=== PATIENT | female | born 1950 | race Caucasian/White ===

== ENCOUNTER 2020-03-27 16:08 | Outpatient (REF) | payer MEDICARE, SELFPAY ==
--- NOTE | 2020-03-27 16:13 | MM_ITS ---
EXAMINATION: MM SCREENING DIGITAL BREAST TOMOSYNTHESIS, BILATERAL CLINICAL INFORMATION: Screening. Asymptomatic. Prior history remote breast biopsies with benign pathology. The lifetime risk of breast cancer based on the Tyrer-Cuzick Model is 4%. COMPARISON: Mammography: 07/29/2018, 07/16/2017 TECHNIQUE: Digital breast tomosynthesis is performed in both the craniocaudal and mediolateral oblique views along with computer-aided detection (CAD). Synthesized 2D images are generated from the tomosynthesis. FINDINGS: There are scattered areas of fibroglandular density (ACR BI-RADS breast composition Category b). There is chronic bilateral nipple retraction and some minor scarring similar to prior studies. No interval architectural abnormality, mass, developing density. Again, there are regional calcifications predominantly central left breast without significant change. MM/MM tomosynthesis screening BI IMPRESSION: No significant changes from prior studies. ASSESSMENT: BI-RADS 2: Benign RECOMMENDATION: Routine annual mammography screening. This patient's information was entered into a reminder system with a target due date for their next mammogram.
== END 2020-03-27 16:09 | disposition home or self-care (01) ==
LOC: HO.MAMMO 16:08
PROVIDERS: PCP Family Medicine; Visit Provider Family Medicine
DX: Z12.31 Encounter for screening mammogram for malignant neoplasm of breast (principal)
CPT/HCPCS: 77063; 77067

== ENCOUNTER 2020-07-05 10:00 | Outpatient (REF) | payer MEDICARE, OTHER, SELFPAY | END 2020-07-05 10:01 | disposition home or self-care (01) | LOC: HO.LAB 10:00 | PROVIDERS: Visit Provider Internal Medicine | DX: Z20.822 Contact with and (suspected) exposure to COVID-19 (principal) | CPT/HCPCS: 36415; C9803; U0003; U0005 ==

== ENCOUNTER 2020-07-14 04:46 | Emergency (ER) | payer MEDICARE, OTHER, SELFPAY ==
[2020-07-14] VITALS (10 sets, daily range): BP systolic 109–162; BP diastolic 57–77; PULSE 76–116; RESP 14–18; TEMP 36.5–38.2; O2SAT 93–97; BMI 27.6
--- NOTE | ~2020-07-14 | CT_ITS ---
EXAMINATION: CT ABDOMEN AND PELVIS WITHOUT CONTRAST CLINICAL INFORMATION: Lower abdominal pain. COMPARISON: 09/23/2017. TECHNIQUE: Contiguous axial thin section helical images of the abdomen and pelvis were performed without oral or IV contrast. The data set was reformatted in the coronal and sagittal planes and reviewed on an independent workstation. DLP: 587 mGy-cm. FINDINGS: The visualized lung bases are clear. The visualized portions of the heart are unremarkable. There is a small hiatal hernia. The liver is of normal size and attenuation without focal lesions nor intrahepatic biliary ductal dilation. A normal gallbladder is identified. There is no wall thickening or discernible pericholecystic fluid. The spleen, pancreas, adrenal glands are unremarkable. Both kidneys are of normal size and attenuation. There is left grade 3 hydroureteronephrosis secondary to an obstructive 3 mm left UVJ calculus. Within the lower pole of the left kidney, there is a nonobstructive 6 mm calculus. There is left perinephric and periureteral stranding. There is no abdominal free fluid. There is neither mesenteric nor retroperitoneal lymphadenopathy. There is extensive sigmoid diverticulosis without evidence of diverticulitis; otherwise, unremarkable unopacified loops of small and large bowel are identified. There is no pelvic free fluid. The urinary bladder is unremarkable. There is neither pelvic nor inguinal lymphadenopathy. Bone windows: Neither sclerotic nor lytic bone lesions are identified. CT/CT abdomen pelvis wo con IMPRESSION: Left grade 3 hydroureteronephrosis secondary to an obstructive 3 mm left UVJ calculus. Extensive diverticulosis without evidence of diverticulitis. Automated exposure control (Care Dose) Adjustment of the mA and/or kv according to patient size (this includes techniques or standardized protocols for targeted exams where dose is matched to indication / reason for exam; i.e. extremities or head).
--- NOTE | ~2020-07-14 | FL_ITS ---
EXAMINATION: XR FLUOROSCOPY WITH IMAGES CLINICAL INFORMATION: Left ureteral stone COMPARISON: CT abdomen and pelvis from earlier in the same day TECHNIQUE: Fluoroscopy performed by Johnathan Webber. Fluoroscopy time: 14 seconds DAP: 3.63 mGy Images: 3 FINDINGS: 3 spot fluoroscopic images demonstrate opacification of the left ureter and placement of a double-J ureteral stent. FL/FL guidance in OR IMPRESSION: Fluoroscopy was utilized in the OR during left ureteral stent placement. Please refer to operative report for full procedure details.
--- NOTE | 2020-07-14 05:30 | ED_ITS ---
HPI - Abdominal Pain General Chief Complaint: Extremity Injury, Lower Stated Complaint: L HIP/FLANK PAIN Time Seen by Provider: 07/14/20 05:02 Source: patient Mode of arrival: EMS Limitations: no limitations History of Present Illness HPI narrative: Patient history of kidney stone and diverticulitis woke up at 03:00 with left lower quadrant pain with diaphoresis , patient had yesterday left flank pain which has improved also patient uses strong odor in the urine when she urinated no hematuria no nausea no vomiting no diarrhea no fever no chills no abdominal distension no hernia MD elicited complaint: abdominal pain and flank pain Pertinent past history: diverticulitis and kidney stones Related Data Allergies Allergy/AdvReac Type Severity Reaction Status Date / Time abacavir Allergy Unknown Verified 04/30/19 00:00 dicloxacillin [Dicloxacillin] Allergy Unknown UNKNOWN Unverified 12/30/19 14:54 Sulfa (Sulfonamide Allergy Unknown RASH Unverified 12/30/19 14:54 Antibiotics) Review of Systems Review of Systems Constitutional : No Weight loss, No Fever, No Chills ENT/Mouth : No sore throat, No Rhinorrhea Eyes: No Eye Pain, No Swelling Cardiovascular : No Chest Pain, no palpitations Respiratory : No Cough, No Sputum, no shortness of breath Gastrointestinal : no Nausea, No Vomiting, No Diarrhea, ++ abdominal Pain, no black stools Genitourinary : No Dysuria, No Urinary Frequency Musculoskeletal : No joint pain, No Myalgias, No Joint Swelling Skin : No Skin Lesions, No rash Neuro : No Weakness, No Numbness, No Dizziness, No Headache Psych : No Anxiety/Panic, No Depression Heme/Lymph: No Bruising, No Lymphadenopathy Endocrine : No Polyuria, No Polydipsia All other systems reviewed and are negative Physical Exam Vital Signs: Vital Signs: Last Vital Signs Temp 97.7 F 07/14/20 05:00 Pulse 76 07/14/20 05:00 Resp 18 07/14/20 05:00 BP 158/63 H 07/14/20 05:00 Pulse Ox 97 07/14/20 05:00 Body Mass Index 27.6 Appearance: Alert. Oriented X3. No acute distress. Eyes: Pupils equal, round and reactive to light. ENT: Pharynx normal. Neck: Normal inspection. Neck supple. CVS: Normal heart rate and rhythm. Pulses normal. Respiratory: No respiratory distress. Breath sounds normal. Abdomen: Soft dip tenderness left lower quadrant with guarding no rebound tenderness Bowel sounds are present, no mass palpable, mild left CVA tenderness Skin: Skin warm and dry. Normal skin color. Normal skin turgor. Extremities: No lower extremity edema. Neuro: Oriented X 3. No motor deficit. No sensory deficit. MDM - Abdominal Pain MDM Narrative Medical decision making narrative: Patient with left flank left abdominal pain secondary to 3 mm L UVJ junction stone with grade 3 hydro ureteral nephrosis. Will give IV fluids pain medication Flomax and Decadron. Case discussed Dr. Caraballo urologist will see the patient in ED, in case pain continues patient signed out to Dr. Linton pending UA and disposition Differential Diagnosis Differential diagnosis: Likely calculus of kidney, diverticulitis, ovarian cyst and renal colic Medical Records Attestation: I reviewed the patient's medical records. Lab Data Attestation: I reviewed the patient's lab results. Result diagrams: 07/14/20 06:04 07/14/20 06:04 Labs: Lab Results 07/14/20 07/14/20 Range/Units 06:04 06:04 WBC 11.7 H (4.8-10.8) X10*3/uL RBC 4.85 (4.20-5.50) X10*6/uL Hgb 14.8 (12.0-16.0) g/dl Hct 43.5 (37-47) % MCV 89.7 (80-98) fL MCH 30.5 (27.0-33.0) pg MCHC 34.0 (31.0-35.0) g/dl RDW 11.9 (11.0-16.0) % Plt Count 222 (160-400) X10*3/uL MPV 10.1 (9.4-12.3) fL Immature Gran % (Auto) 0.3 (0.0-0.4) % Neut % (Auto) 82.7 H (45-73) % Lymph % (Auto) 12.7 L (20-40) % [place] % (Auto) 3.3 (2-11) % Eos % (Auto) 0.6 (0-4) % Baso % (Auto) 0.4 (0-2) % Lymph # (Auto) 1.5 (1.2-4.9) X10*3/uL [place] # (Auto) 0.4 (0.1-1.2) X10*3/uL Eos # (Auto) 0.1 (0.0-0.4) X10*3/uL Baso # (Auto) 0.1 (0.0-0.2) X10*3/uL Abs Immat Gran (auto) 0.04 H (0.00-0.03) X10*3/uL Absolute Neuts (auto) 9.7 H (2.0-8.3) X10*3/uL Absolute Nucleated RBC 0.000 (0.0-0.012) X10*3/uL Nucleated RBC % (auto) 0.0 (0.0-0.2) /100WBC Carbon Dioxide 26 (22-29) mmol/L BUN 24 H (9-16) mg/dL Creatinine 1.13 (0.5-1.4) mg/dL Estim Creat Clear Calc 43.7 Estimated GFR 48 Random Glucose 158 H (60-115) mg/dL Calcium 9.1 (8.4-10.2) mg/dL Total Bilirubin 0.3 (0.0-1.0) mg/dL Direct Bilirubin 0.2 (0.0-0.5) mg/dL AST 24 (5-31) U/L ALT 31 (0-31) U/L Alkaline Phosphatase 77 (39-117) U/L Total Protein 7.0 (6.5-8.0) g/dL Albumin 4.2 (3.5-5.0) g/dL Lipase 19 (8-78) U/L Imaging Data CT scan - abdomen: Attestation: I personally reviewed and interpreted this imaging study as follows: Radiologist's impression: Ordering Physician: David Bauer MD Date of Service: 07/14/20 Procedure(s): CT abdomen pelvis [facility] Accession Number(s): [id number] cc: David Bauer MD~ EXAMINATION: CT ABDOMEN AND PELVIS WITHOUT CONTRAST CLINICAL INFORMATION: Lower abdominal pain. COMPARISON: 09/23/2017. TECHNIQUE: Contiguous axial thin section helical images of the abdomen and pelvis were performed without oral or IV contrast. The data set was reformatted in the coronal and sagittal planes and reviewed on an independent workstation. DLP: 587 mGy-cm. FINDINGS: The visualized lung bases are clear. The visualized portions of the heart are unremarkable. There is a small hiatal hernia. The liver is of normal size and attenuation without focal lesions nor intrahepatic biliary ductal dilation. A normal gallbladder is identified. There is no wall thickening or discernible pericholecystic fluid. The spleen, pancreas, adrenal glands are unremarkable. Both kidneys are of normal size and attenuation. There is left grade 3 hydroureteronephrosis secondary to an obstructive 3 mm left UVJ calculus. Within the lower pole of the left kidney, there is a nonobstructive 6 mm calculus. There is left perinephric and periureteral stranding. There is no abdominal free fluid. There is neither mesenteric nor retroperitoneal lymphadenopathy. There is extensive sigmoid diverticulosis without evidence of diverticulitis; otherwise, unremarkable unopacified loops of small and large bowel are identified. There is no pelvic free fluid. The urinary bladder is unremarkable. There is neither pelvic nor inguinal lymphadenopathy. Bone windows: Neither sclerotic nor lytic bone lesions are identified. CT/CT abdomen pelvis wo con IMPRESSION: Left grade 3 hydroureteronephrosis secondary to an obstructive 3 mm left UVJ calculus. Extensive diverticulosis without evidence of diverticulitis. Automated exposure control (Care Dose) Adjustment of the mA and/or kv according to patient size (this includes techniques or standardized protocols for targeted exams where dose is matched to indication / reason for exam; i.e. extremities or head). Dictated By:HENRY ROONEY MDSigned By:<Electronically signed by HENRY ROONEY MD in OV> Discharge Plan Discharge Clinical Impression: Kidney stone on left side PMFSH Past Medical History Medical History Diverticulitis Kidney stone Social History Social History Advance Directives: No Advance Directives Information Provided: No
[2020-07-14] MEDS: ondansetron HCL 4 MG/2 ML VIAL IVPUSH (06:09)
[2020-07-14] MEDS: 0.9 % Sodium Chloride 1,000 ML 999 ML IVCONT ×2 (06:09→08:01)
[2020-07-14] MEDS: Morphine Sulfate 4 MG/ML CARTRIDGE IVPUSH (06:10)
[2020-07-14 06:11] LABS: MANUAL DIFF FLAG NO
[2020-07-14 06:17] LABS: Basophils Absolute Auto 0.1 X10*3/uL (0.0-0.2); Basophils Percent Auto 0.4 % (0-2); Eosinophils Absolute Auto 0.1 X10*3/uL (0.0-0.4); Eosinophils Percent Auto 0.6 % (0-4); Hematocrit 43.5 % (37-47); Hemoglobin 14.8 g/dl (12.0-16.0); Imm Gran Abs Auto 0.04 X10*3/uL (0.00-0.03); Imm Gran Pct Auto 0.3 % (0.0-0.4); Lymphocytes Absolute Auto 1.5 X10*3/uL (1.2-4.9); Lymphocytes Percent Auto 12.7 % (20-40); Mean Corpuscular Hemoglobin 30.5 pg (27.0-33.0); Mean Corpuscular Volume 89.7 fL (80-98); Mean Platelet Volume 10.1 fL (9.4-12.3); Monocytes Absolute Auto 0.4 X10*3/uL (0.1-1.2); Monocytes Percent Auto 3.3 % (2-11); Neutrophils Absolute Auto 9.7 X10*3/uL (2.0-8.3); Neutrophils Percent Auto 82.7 % (45-73); Platelet Count 222 X10*3/uL (160-400); Red Blood Count 4.85 X10*6/uL (4.20-5.50); Red Cell Distribution Width 11.9 % (11.0-16.0); White Blood Count 11.7 X10*3/uL (4.8-10.8)
[2020-07-14 06:47] LABS: Alanine Aminotransferase 31 U/L (0-31); Albumin Level 4.2 g/dL (3.5-5.0); Alkaline Phosphatase 77 U/L (39-117); Aspartate Amino Transferase 24 U/L (5-31); Bilirubin Direct 0.2 mg/dL (0.0-0.5); Bilirubin Total 0.3 mg/dL (0.0-1.0); Blood Urea Nitrogen 24 mg/dL (9-16); Calcium 9.1 mg/dL (8.4-10.2); Carbon Dioxide 26 mmol/L (22-29); Creatinine Clr Calc Pharmacy 43.7; Estimated Glomerular Filt Rate 48; Glucose Random 158 mg/dL (60-115); Lipase 19 U/L (8-78)
[2020-07-14] MEDS: Ketorolac Tromethamine 30 MG/ML VIAL IVPUSH (06:59)
[2020-07-14 07:01] LABS: Anion Gap 13 (12-20); Chloride 105 mmol/L (96-108); Potassium 4.3 mmol/L (3.3-5.1); Sodium 140 mmol/L (135-145)
[2020-07-14] MEDS: Tamsulosin HCL 0.4 MG CAPSULE PO (07:03)
--- NOTE | 2020-07-14 10:13 | PC.NURSE ---
ATTEMPTED TO GET THE PT UP TO THE BATHROOM BUT PT STATES SHE CAN'T GET UP DUE TO THE PAIN, PAIN STILL AT 5/10. PT PUT ON THE BED RODRIGUEZ BY CONNIE CASTELLON AND PT ONLY VOIDED A DROP OF URINE,
[2020-07-14 12:12] LABS: Appearance Urine CLOUDY; Color Urine YELLOW; Glucose Urine UA NEG (NEG); Leukocyte Esterase Urine 3+ (NEG); Nitrite Urine NEG (NEG); UACC Culture Trigger YES; Urine Blood 3+ (NEG); Urine Ketones NEG (NEG); Urine Protein NEG (NEG-TRACE)
[2020-07-14 12:25] LABS: Bacteria Urine 1+ /LPF; Oval Fat Bodies Urine NOTED; Squamous Epithelial Cell Urine TRACE /LPF
--- NOTE | 2020-07-14 13:02 | P.HPGS_ITS ---
History of Present Illness History of Present Illness Date of Service: 07/14/20 Chief complaint: L HIP/FLANK PAIN Narrative: Lidia Mcdonald is a 70 year old female Known stone former Presents to emergency room with left-sided flank pain Imaging with distal left stone x2 and hydroureteronephrosis grade 3 Discussed with patient Pain started on Friday last week and has been building Offered intervention with ureteroscopy laser lithotripsy and stent placement She would like to proceed Review of Systems Constitutional: Constitutional: Denies chills and Denies fever(s) Cardiovascular: Cardiovascular: Reports no additional cardiovascular complaints and Denies syncope Respiratory: Respiratory: Denies cough Gastrointestinal: Gastrointestinal: Denies abdominal pain and Denies heartburn Genitourinary: Genitourinary: Reports as per HPI and Denies change in libido Neurologic: Denies syncope Psychiatric: Psychiatric: Denies change in libido Endocrine: Endocrine: Denies change in libido [facility] Past Medical History Medical History Diverticulitis Kidney stone Social History Social History Advance Directives: No Advance Directives Information Provided: No Meds Allergies Allergy/AdvReac Type Severity Reaction Status Date / Time abacavir Allergy Unknown Verified 04/30/19 00:00 dicloxacillin [Dicloxacillin] Allergy Unknown UNKNOWN Unverified 12/30/19 14:54 Sulfa (Sulfonamide Allergy Unknown RASH Unverified 12/30/19 14:54 Antibiotics) Active Medications: Current Medications Generic Name Dose Route Start Last Admin Trade Name Freq PRN Reason Stop Dose Admin Sodium Chloride 3 ml 07/14/20 16:00 0.9 % Sodium Chloride Flush 3 Ml Syringe IVFLUSH QSHIFT USHA Physical Exam Vital Signs: Vital Signs: Last Vital Signs Temp 97.7 F 07/14/20 05:00 Pulse 106 H 07/14/20 10:33 Resp 18 07/14/20 10:33 BP 155/69 H 07/14/20 10:33 Pulse Ox 94 07/14/20 10:33 Body Mass Index 27.6 Const: General: cooperative, healthy appearing, comfortable and no acute distress Nutritional Appearance: average body habitus Orientation/consciousness: patient oriented x3 HENMT: Face and sinus: Yes normal facial exam Mouth: moist mucous membranes Eyes: General: appearance normal, both eyes and all related structures Neck: Neck: Yes normal visual inspection, Yes full ROM and Yes trachea midline Chest: Chest palpation & inspection: normal inspection of the chest Resp: Effort & Inspection: normal respiratory effort, able to speak in complete sentences and no respiratory distress Cardio: Rate: regular rate GI: Inspection: Yes normal to inspection : General: Yes CVA tenderness (Left side) Back/Spine/Pelvis: Back: CVA tenderness (Left side) Cervical Spine: normal cervical lordosis Thoracic/Lumbar Spine: thoracic and lumbar spine normal to inspection Skin: General skin exam: no rashes or lesions noted Hair: normal Neuro: General: patient oriented x3, gait normal, tone normal and moves all extremities Extrem: General: Yes normal to inspection and Yes capillary refill normal Results Results Labs: Short CBC 07/14/20 Range/Units 06:04 WBC 11.7 H (4.8-10.8) X10*3/uL Hgb 14.8 (12.0-16.0) g/dl Hct 43.5 (37-47) % Plt Count 222 (160-400) X10*3/uL BMP 07/14/20 06:04 Sodium 140 Potassium 4.3 Chloride 105 Carbon Dioxide 26 BUN 24 H Creatinine 1.13 Calcium 9.1 Liver Function 07/14/20 Range/Units 06:04 Total Bilirubin 0.3 (0.0-1.0) mg/dL Direct Bilirubin 0.2 (0.0-0.5) mg/dL AST 24 (5-31) U/L ALT 31 (0-31) U/L Alkaline Phosphatase 77 (39-117) U/L Albumin 4.2 (3.5-5.0) g/dL Urine 07/14/20 Range/Units 11:56 Urine Color YELLOW Urine Appearance CLOUDY Urine pH 6.0 (5.0-8.0) Ur Specific [place] 1.020 (1.005-1.025) Urine Protein NEG (NEG-TRACE) MG/DL Urine Glucose (UA) NEG (NEG) MG/DL Both kidneys are of normal size and attenuation. There is left grade 3 hydroureteronephrosis secondary to an obstructive 3 mm left UVJ calculus. Within the lower pole of the left kidney, there is a nonobstructive 6 mm calculus. There is left perinephric and periureteral stranding. Assessment and Plan (1) Kidney stone on left side: Status: Acute Ureteroscopy We discussed the nature of the decision and reasonable alternatives for performing the above surgery. Interventions include chemical dissolution, ESWL, ureteroscopy with laser lithotripsy and stent placement, PCNL. Options such as medical therapy were discussed. The relative uncertainties and benefits related to each alternate procedure were adequately discussed. General surgical risks including, but not limited to, pain, bleeding, infection, myocardial infarction, pulmonary embolus, deep vein thrombosis and cerebrovascular accident which may result in further hospitalization were discussed. Full disclosure of the procedure as well as all major risks, benefits and compli cations were discussed including but not limited to damage to the urethra, bladder and kidney infection, damage to the ureter, stent migration or malposition, scarring to the renal pelvis, remnant stone fragments, subsequent stone passage with need for secondary procedures. The overall secondary procedure rate is approximately 10-15%. The success rate of the procedure was discussed. Success of the procedure in the short-term does not necessarily guarantee that long-term success will be maintained. Suitable follow up will need to be maintained. The patient showed understanding of discussion and wishes to proceed with - cystoscopy, retrograde, ureteroscopy, possible lithotripsy/stone basketing and stent on the left side
--- NOTE | 2020-07-14 13:27 | PC.NURSE ---
Pharmacy called for med rec
--- NOTE | 2020-07-14 17:04 | PM.OP ---
Brief Operative Note Date of Service: 07/14/20 Pre-op diagnosis: left distal ureteric stone Post-op diagnosis: same Procedure: cysto, retrograde, ureteroscopy, stone basketing, stent placement Implants: 6x22 cm Double - J Surgeon: Johnathan Caraballo MD Anesthesia: GLMA Estimated blood loss (mL): 0 Pathology: other Condition: stable Disposition: same day
--- NOTE | 2020-07-14 17:05 | P.OP_ITS ---
Operative Note Operative Note Date of Service: 07/14/20 Narrative: PreOperative Diagnosis: Distal left ureteric stone with hydronephrosis Post Operative Diagnosis: Distal left ureteric stone with hydronephrosis Procedure: - cystoscopy, retrograde - dilatation of ureteric orifice under fluoroscopy - ureteroscopy, stone basketing - stent placement Surgeon: Dr Johnathan Caraballo Anesthesia: General Indications for procedure: 7-year-old female. Distal left ureteric stone with hydronephrosis. Unable to pass in prior 72 hours. Recommendation for ureteroscopy made. Admitted through emergency room. Procedure: After informed consent was verified patient was brought to the operating placed in supine position. Anesthesia was administered per protocol. Patient was placed in modified dorsal lithotomy position and prepped and draped in a sterile fashion. Safety pause time-out and side of surgery confirmed. Antibiotics confirmed. Twenty-two Cymraes cystoscope inserted per urethra. Bladder empty. One stone seen at opening of ureteric orifice. This was knocked free and removed. Retrograde examination performed. Second stone seen within the distal portion of the ureter. Hydronephrosis seen. Sensor guidewire placed without difficulty. Rigid ureteral scope placed and alongside wire. Stone was encountered. Using a Zero tip basket this was encircled and removed. No other evidence of other stones. Six Cymraes by 22 cm stent placed up to the renal pelvis with good coil seen in the renal pelvis and in the bladder. Bladder was emptied. She tolerated procedure well was extubated in the operating room transferred in stable condition to the recovery area. Pathology: Stone Drains: 6 Cymraes by 22 cm double-J stent
[2020-07-14] MEDS: Phenazopyridine HCL 100 MG TABLET PO (17:18)
[2020-07-23 13:12] LABS: Stone Source LT URETER
== END 2020-07-14 15:27 | disposition admitted as inpatient to this hospital (09) ==
LOC: HO.ED 07:28 → HO.EDOVER 14:03
PROVIDERS: Internal Medicine; Urology; Emergency Provider Emergency Medicine
PROC: (CPT 52352; principal; 2020-07-14 16:00)
DX: N20.1 Calculus of ureter (principal); Z87.442 Personal history of urinary calculi; I10 Essential (primary) hypertension; Z79.899 Other long term (current) drug therapy
CPT/HCPCS: 52352; 52332; 36415; 52344; 74176; 80048; 80076; 81001; 81003; 82365; 83690; 85025; 87086; 96361; 96365; 96375; 96376; 99285; C2617; J0131; J1100; J1885; J2250; J2270; J2405; J3010; Q9967

== ENCOUNTER → 2020-07-26 12:49 | Outpatient (BNVA) | payer MEDICARE, OTHER, SELFPAY | PROVIDERS: Visit Provider Urology | DX: N20.0 Calculus of kidney (principal) | CPT/HCPCS: 52310; 81002; 99212 ==

== ENCOUNTER 2020-10-26 12:55 | Outpatient (REF) | payer MEDICARE, OTHER, SELFPAY ==
--- NOTE | ~2020-10-26 | US_ITS ---
EXAMINATION: US RETROPERITONEAL LIMITED (RENAL ONLY) CLINICAL INFORMATION: Calculus of kidney. COMPARISON: CT abdomen and pelvis without contrast dated 07/14/2020. Renals only ultrasounds dated 04/28/2019 and 04/16/2018. TECHNIQUE: Real-time imaging of the kidneys. FINDINGS: RIGHT KIDNEY: 10.1 x 3.9 x 4.3 cm (SAG x AP x TRV). The kidney is normal in size, contour, and echogenicity. Right renal cortical thinning. No renal calculi. Simple upper pole cyst measuring 0.5 cm. Findings are not clinically significant and no follow-up imaging for the cyst is recommended. Small right extrarenal pelvis. No significant hydronephrosis. LEFT KIDNEY: 10.9 x 5.1 x 5.4 cm (SAG x AP x TRV). The kidney is normal in size, contour, and echogenicity. Left renal cortical thinning. No renal calculi. Septated midpole cyst measuring 1.6 cm, unchanged. Mild left-sided hydronephrosis, similar when compared to the recent CT. US/US renal BI IMPRESSION: 1. Mild left-sided hydronephrosis, similar when compared to the CT dated 07/14/2020. 2. Bilateral renal cortical thinning is redemonstrated.
== END 2020-10-26 12:56 | disposition home or self-care (01) ==
LOC: HO.US 12:55
PROVIDERS: PCP Family Medicine; Visit Provider Urology
DX: N20.0 Calculus of kidney (principal)
CPT/HCPCS: 76775

== ENCOUNTER → 2020-11-23 10:41 | Outpatient (BNVA) | payer MEDICARE, OTHER, SELFPAY | PROVIDERS: Visit Provider Urology | DX: N20.0 Calculus of kidney (principal) | CPT/HCPCS: 99212 ==

== ENCOUNTER 2021-01-01 14:30 | Outpatient (REF) | payer MEDICARE, OTHER, SELFPAY ==
[2021-01-01 15:08] LABS: Appearance Urine CLEAR; Color Urine STRAW; Glucose Urine UA NEG (NEG); Leukocyte Esterase Urine 3+ (NEG); Nitrite Urine NEG (NEG); Specific Gravity - Urine <= 1.005 (1.005-1.025); Urine Blood 2+ (NEG); Urine Ketones NEG (NEG); Urine Protein NEG (NEG-TRACE)
[2021-01-01 15:22] LABS: Bacteria Urine TRACE /LPF; Squamous Epithelial Cell Urine 1+ /LPF
== END 2021-01-01 14:31 | disposition home or self-care (01) ==
LOC: HO.LAB 14:30
PROVIDERS: PCP Family Medicine; Visit Provider Urology
DX: N20.0 Calculus of kidney (principal)
CPT/HCPCS: 81001; 87086

== ENCOUNTER 2021-01-08 12:20 | Emergency (ER) | payer MEDICARE, OTHER, SELFPAY ==
--- NOTE | ~2021-01-08 | XR_ITS ---
EXAMINATION: XR CHEST CLINICAL INFORMATION: Chest pain. COMPARISON: None TECHNIQUE: Frontal view of the chest was obtained. FINDINGS: No significant abnormality is noted involving the heart, lungs, mediastinum, bony thorax or soft tissues. XR/XR chest 1V IMPRESSION: Unremarkable chest exam.
--- NOTE | 2021-01-08 13:09 | ECG_ITS ---
Test Reason : CP Blood Pressure : / mmHG Vent. Rate : 082 BPM Atrial Rate : 082 BPM P-R Int : 158 ms QRS Dur : 080 ms QT Int : 382 ms P-R-T Axes : 048 -15 020 degrees QTc Int : 446 ms Normal sinus rhythm Possible Left atrial enlargement Left ventricular hypertrophy Abnormal ECG When compared with ECG of 28-JUN-2011 04:40, No significant change was found Referred By: Generic ED Physician Electronically Signed By:DEANNA GAMINO
[2021-01-08 13:21] VITALS: BP 146/76; PULSE 88; RESP 17; TEMP 36.4; O2SAT 95; BMI 27.3
--- NOTE | 2021-01-08 13:30 | ED.CHESTPAIN ---
HPI - Chest Pain General Chief Complaint: Chest Pain Stated Complaint: chest pain Time Seen by Provider: 01/08/21 13:30 Source: patient Mode of arrival: ambulatory Limitations: no limitations History of Present Illness MD complaint: chest pain Onset (ago): hour(s) (noon today) Prior episodes: No Onset: during exertion (started after she walked up the stairs with laundry - brought basket up started folding and and noted chest tightness x 30 minutes) Pain location: substernal Pain radiation: none Severity: mild Quality: tightness Relieving factors: nothing Exacerbating factors: nothing Context: other (has urology procedure scheduled today at 4pm) Treatment prior to arrival: none Related Data Home Medications Medication Instructions Recorded Confirmed amlodipine 10 mg tablet 1 tab PO DAILY 07/14/20 07/14/20 calcium carbonate 600 mg (1,500 1 tab PO DAILY 07/14/20 07/14/20 mg)-vitamin D3 200 unit tablet clobetasol 0.05 % topical ointment 1 appl TOPICAL BID PRN 07/14/20 07/14/20 clotrimazole-betamethasone 1 1 appl TOPICAL BID 07/14/20 07/14/20 %-0.05 % topical cream fluticasone propionate 50 1 spray INTRANASAL BID PRN 07/14/20 07/14/20 mcg/actuation nasal spray,suspension lorazepam 0.5 mg tablet 1 tab PO DAILY 07/14/20 07/14/20 losartan 50 mg tablet 1 tab PO DAILY 07/14/20 07/14/20 metoprolol succinate 50 mg 75 mg PO DAILY 07/14/20 07/14/20 tablet,extended release 24 hr xjkrunhxvxpa-jymikopg-garzzk tablet 1 tab PO DAILY 07/14/20 07/14/20 nortriptyline 25 mg capsule 1 cap PO BEDTIME 07/14/20 07/14/20 omega 5-pop-bfn-fish oil 1,000 mg 1 cap PO DAILY 07/14/20 07/14/20 (120 mg-180 mg) capsule (Fish Oil) omeprazole 20 mg capsule,delayed 1 cap PO DAILY@0630 07/14/20 07/14/20 release simvastatin 20 mg tablet 1 tab PO BEDTIME 07/14/20 07/14/20 Previous Rx's Medication Instructions Recorded phenazopyridine 100 mg tablet 100 mg PO TID PRN 4 Days #12 tab 07/14/20 (Pyridium) tamsulosin 0.4 mg capsule 0.4 mg PO BEDTIME #14 cap 07/14/20 tramadol 50 mg tablet 50 mg PO Q6H PRN #14 tab 07/14/20 azithromycin 250 mg tablet See Rx Instructions PO .COMPLEX #6 11/06/20 tab prednisone 20 mg tablet 20 mg PO DAILY 5 Days #5 tab 01/03/21 tamsulosin 0.4 mg capsule 0.4 mg PO DAILY 14 Days #14 cap 01/03/21 Allergies Allergy/AdvReac Type Severity Reaction Status Date / Time abacavir Allergy Unknown Unknown Verified 11/23/20 11:15 dicloxacillin [Dicloxacillin] Allergy Unknown UNKNOWN Verified 11/23/20 11:15 Sulfa (Sulfonamide Allergy Unknown RASH Verified 11/23/20 11:15 Antibiotics) Review of Systems Review of Systems: Constitutional : No Weight loss, No Fever, No Chills ENT/Mouth : No sore throat, No Rhinorrhea Eyes: No Eye Pain, No Swelling Cardiovascular : pos Chest Pain, no SOB, no Dyspnea on Exertion, No Orthopnea, No Edema, No Palpitations Respiratory : No Cough, No Sputum Gastrointestinal : no Nausea, No Vomiting, No Diarrhea, No abdominal Pain, No Hematochezia, No Melena Genitourinary : No Dysuria, No Urinary Frequency Musculoskeletal : No joint pain, No Myalgias, No Joint Swelling Skin : No Skin Lesions, No rash Neuro : No Weakness, No Numbness, No Dizziness, No Headache Psych : No Anxiety/Panic, No Depression Heme/Lymph: No Bruising, No Lymphadenopathy Endocrine : No Polyuria, No Polydipsia All other systems reviewed and are negative [facility] Past Medical History Attestation statement: The following information was validated with the patient. Medical History Diverticulitis GI bleed High cholesterol HTN (hypertension) Kidney stone Surgical History Hx of appendectomy Hx of colectomy Social History Social History (Updated 01/08/21 @ 13:30 by Skyla Montoya DO) Patient Tobacco Use Status: Never used Tobacco Use of substances other than those prescribed or required for medical reasons: No Advance Directives: No Advance Directives Information Provided: No Physical Exam Vital Signs: Vital Signs: Last Vital Signs Temp 97.5 F 01/08/21 13:21 Pulse 80 01/08/21 15:48 Resp 20 01/08/21 15:48 BP 146/79 H 01/08/21 13:37 Pulse Ox 98 01/08/21 15:48 Body Mass Index 27.3 Appearance: Alert. Oriented X3. No acute distress. Eyes: Pupils equal, round and reactive to light. ENT: Pharynx normal. Neck: Normal inspection. Neck supple. CVS: Normal heart rate and rhythm. Pulses normal. Respiratory: No respiratory distress. Breath sounds normal. Abdomen: Soft and nontender. Skin: Skin warm and dry. Normal skin color. Normal skin turgor. Extremities: No lower extremity edema. No calf ttp Neuro: Oriented X 3. No motor deficit. No sensory deficit. Course Course Course Narrative: anesthesia reports her case was canceled, two negative troponins, atypical chest pain stable for DC MDM - Chest Pain MDM Narrative Medical decision making narrative: 70 yo female with hx of HTN, ureteral stones, no prior cardiac issues comes in with resolved chest tightness. Episode started after going up the stairs but she had no associated symptoms, she does this same activity almost daily without any noted increased pain, dyspnea, fatigue or other anginal type symptoms. She is having surgery today for her kidney stones. No hypoxia/tachycardic/signs of DVT/pleuritic in nature to suggest PE. Will obtain labs, troponin x 2, CXR, COVID swab - seems unusual for ACS given the fact she has no symptoms and has not noted a change recently doing the same activities daily Lab Data Result diagrams: 01/08/21 14:08 01/08/21 14:08 Labs: Lab Results 01/08/21 01/08/21 01/08/21 Range/Units 13:59 14:08 14:08 WBC 9.2 (4.8-10.8) X10*3/uL RBC 5.20 (4.20-5.50) X10*6/uL Hgb 15.9 (12.0-16.0) g/dl Hct 46.5 (37-47) % MCV 89.4 (80-98) fL MCH 30.6 (27.0-33.0) pg MCHC 34.2 (31.0-35.0) g/dl RDW 12.9 (11.0-16.0) % Plt Count 208 (160-400) X10*3/uL MPV 9.7 (9.4-12.3) fL Immature Gran % (Auto) 0.5 H (0.0-0.4) % Neut % (Auto) 58.5 (45-73) % Lymph % (Auto) 33.7 (20-40) % [place] % (Auto) 6.0 (2-11) % Eos % (Auto) 1.0 (0-4) % Baso % (Auto) 0.3 (0-2) % Lymph # (Auto) 3.1 (1.2-4.9) X10*3/uL [place] # (Auto) 0.6 (0.1-1.2) X10*3/uL Eos # (Auto) 0.1 (0.0-0.4) X10*3/uL Baso # (Auto) 0.0 (0.0-0.2) X10*3/uL Abs Immat Gran (auto) 0.05 H (0.00-0.03) X10*3/uL Absolute Neuts (auto) 5.4 (2.0-8.3) X10*3/uL Absolute Nucleated RBC 0.000 (0.0-0.012) X10*3/uL Nucleated RBC % (auto) 0.0 (0.0-0.2) /100WBC Sodium 141 (135-145) mmol/L Potassium 4.1 (3.3-5.1) mmol/L Chloride 105 (96-108) mmol/L Carbon Dioxide 24 (22-29) mmol/L Anion Gap 16 (12-20) BUN 21 H (9-16) mg/dL Creatinine 0.99 (0.5-1.4) mg/dL Estim Creat Clear Calc 51.4 Estimated GFR 55 Random Glucose 103 (60-115) mg/dL Calcium 9.9 D (8.4-10.2) mg/dL Troponin I High Sens (<3.5-17.0) ng/L COVID-19 ([facility]) Negative (Negative) COVID-19 Clin Com See Note 01/08/21 01/08/21 Range/Units 14:08 15:47 WBC (4.8-10.8) X10*3/uL RBC (4.20-5.50) X10*6/uL Hgb (12.0-16.0) g/dl Hct (37-47) % MCV (80-98) fL MCH (27.0-33.0) pg MCHC (31.0-35.0) g/dl RDW (11.0-16.0) % Plt Count (160-400) X10*3/uL MPV (9.4-12.3) fL Immature Gran % (Auto) (0.0-0.4) % Neut % (Auto) (45-73) % Lymph % (Auto) (20-40) % [place] % (Auto) (2-11) % Eos % (Auto) (0-4) % Baso % (Auto) (0-2) % Lymph # (Auto) (1.2-4.9) X10*3/uL [place] # (Auto) (0.1-1.2) X10*3/uL Eos # (Auto) (0.0-0.4) X10*3/uL Baso # (Auto) (0.0-0.2) X10*3/uL Abs Immat Gran (auto) (0.00-0.03) X10*3/uL Absolute Neuts (auto) (2.0-8.3) X10*3/uL Absolute Nucleated RBC (0.0-0.012) X10*3/uL Nucleated RBC % (auto) (0.0-0.2) /100WBC Sodium (135-145) mmol/L Potassium (3.3-5.1) mmol/L Chloride (96-108) mmol/L Carbon Dioxide (22-29) mmol/L Anion Gap (12-20) BUN (9-16) mg/dL Creatinine (0.5-1.4) mg/dL Estim Creat Clear Calc Estimated GFR Random Glucose (60-115) mg/dL Calcium (8.4-10.2) mg/dL Troponin I High Sens < 3.5 < 3.5 (<3.5-17.0) ng/L COVID-19 ([facility]) (Negative) COVID-19 Clin Com ECG Data ECG #1: Attestation: I personally reviewed and interpreted this ECG as follows: ECG interpretation date: 01/08/21 ECG interpretation time: 13:31 Interpretation: Rate: 82 Rhythm: NSR [place]: left, LVH Normal P waves. Normal JACOB. Normal QRS complex. ST T wave : normal no SLOANE qTC: normal prior studies: no acute ischemia The study has been interpreted contemporaneously by me. . Discharge Plan Discharge Clinical Impression: Atypical chest pain Patient Disposition: Home, Self-Care Instructions: Chest Pain (ED) Additional Instructions: return to ED for any worsening symptoms or concerns you need to contact Dr. Caraballo to reschedule your surgery Prescriptions: No Action prednisone 20 mg tablet 20 mg PO DAILY 5 Days Qty: 5 RF: 0 tamsulosin 0.4 mg capsule 0.4 mg PO DAILY 14 Days Qty: 14 RF: 0 losartan 50 mg tablet 1 tab PO DAILY RF: 0 metoprolol succinate 50 mg tablet extended release 24 hr 75 mg PO DAILY RF: 0 calcium carbonate-vitamin D3 600 mg(1,500mg) -200 unit Tablet 1 tab PO DAILY RF: 0 nortriptyline 25 mg capsule 1 cap PO BEDTIME RF: 0 lorazepam 0.5 mg tablet 1 tab PO DAILY RF: 0 amlodipine 10 mg tablet 1 tab PO DAILY RF: 0 simvastatin 20 mg tablet 1 tab PO BEDTIME RF: 0 clotrimazole-betamethasone 1-0.05 % cream 1 appl topical BID RF: 0 omeprazole 20 mg capsule,delayed release(DR/EC) 1 cap PO DAILY@0630 RF: 0 clobetasol 0.05 % ointment 1 appl topical BID PRN (Reason: Rash) RF: 0 fluticasone propionate 50 mcg/actuation spray,suspension 1 spray intranasal BID PRN (Reason: Allergy Symptoms) RF: 0 tmvvkyvshsnp-vbswwmkw-utgtbr Tablet 1 tab PO DAILY RF: 0 omega 9-wfa-ebo-fish oil [Fish Oil] 1,000 mg (120 mg-180 mg) Capsule 1 cap PO DAILY RF: 0 phenazopyridine [Pyridium] 100 mg tablet 100 mg PO TID PRN (Reason: spasm) 4 Days Qty: 12 RF: 0 tramadol 50 mg tablet 50 mg PO Q6H PRN (Reason: pain (scale score 4-6)) Qty: 14 RF: 0 tamsulosin 0.4 mg capsule 0.4 mg PO BEDTIME Qty: 14 RF: 0 azithromycin 250 mg tablet See Rx Instructions PO .COMPLEX Qty: 6 RF: 0 Referrals: Karen Almaraz MD [Primary Care Provider] - 2 days (outpatient stress test)
[2021-01-08 13:37] VITALS: BP 146/79; PULSE 84; RESP 16; O2SAT 97
[2021-01-08 14:11] LABS: MANUAL DIFF FLAG NO
[2021-01-08 14:12] LABS: Basophils Percent Auto 0.3 % (0-2); Eosinophils Absolute Auto 0.1 X10*3/uL (0.0-0.4); Hematocrit 46.5 % (37-47); Hemoglobin 15.9 g/dl (12.0-16.0); Imm Gran Abs Auto 0.05 X10*3/uL (0.00-0.03); Imm Gran Pct Auto 0.5 % (0.0-0.4); Lymphocytes Absolute Auto 3.1 X10*3/uL (1.2-4.9); Lymphocytes Percent Auto 33.7 % (20-40); Mean Corpuscular HGB Conc 34.2 g/dl (31.0-35.0); Mean Corpuscular Hemoglobin 30.6 pg (27.0-33.0); Mean Corpuscular Volume 89.4 fL (80-98); Mean Platelet Volume 9.7 fL (9.4-12.3); Monocytes Absolute Auto 0.6 X10*3/uL (0.1-1.2); Neutrophils Absolute Auto 5.4 X10*3/uL (2.0-8.3); Neutrophils Percent Auto 58.5 % (45-73); Platelet Count 208 X10*3/uL (160-400); Red Cell Distribution Width 12.9 % (11.0-16.0); White Blood Count 9.2 X10*3/uL (4.8-10.8)
[2021-01-08 14:30] LABS: COVID-19 Test Negative (Negative)
[2021-01-08 14:43] LABS: Anion Gap 16 (12-20); Blood Urea Nitrogen 21 mg/dL (9-16); Calcium 9.9 mg/dL (8.4-10.2); Carbon Dioxide 24 mmol/L (22-29); Chloride 105 mmol/L (96-108); Creatinine Clr Calc Pharmacy 51.4; Estimated Glomerular Filt Rate 55; Glucose Random 103 mg/dL (60-115); Potassium 4.1 mmol/L (3.3-5.1); Sodium 141 mmol/L (135-145)
[2021-01-08 14:44] LABS: Troponin-I High Sensitivity < 3.5 ng/L (<3.5-17.0)
[2021-01-08 15:48] VITALS: PULSE 80; RESP 20; O2SAT 98
--- NOTE | 2021-01-08 15:59 | PC.NURSE ---
call made to PACU regarding pt cystoscopy today, informed by PACU that anesthesia canceled the procedure. if pt would like to continue with the procedure she will need to call dr. Caraballo and ask to be an add on. Will inform pt of this now.
--- NOTE | 2021-01-08 16:04 | PC.NURSE ---
pt aware that the procedure has been canceled for today.
[2021-01-08 16:12] LABS: Troponin-I High Sensitivity < 3.5 ng/L (<3.5-17.0)
== END 2021-01-08 17:02 | disposition home or self-care (01) ==
PROVIDERS: Emergency Provider Emergency Medicine; PCP Family Medicine
DX: R07.89 Other chest pain (principal); I10 Essential (primary) hypertension; Z20.822 Contact with and (suspected) exposure to COVID-19; Z79.899 Other long term (current) drug therapy
CPT/HCPCS: 36415; 71045; 80048; 84484; 85025; 87635; 93005; 99283; 99285

== ENCOUNTER 2021-02-05 12:11 | Day surgery (SDC) | payer MEDICARE, OTHER, SELFPAY ==
[2021-01-23 09:38] VITALS: BMI 28.1
--- NOTE | 2021-02-02 13:18 | P.CONAN_ITS ---
Documented by User: Winter Giles NP 02/02/21 13:25 HPI - Anesthesia Eval Consult details Narrative: 70yo F for Left Cystoscopy, Ureteroroscopy, Retro, Laser,possible stent PCP cleared (in ED with atypical CP date of last scheduled cysto. seen by PCP after d/c home) s/p cysto, etc 07/2020 with GA-LMA 4 PMFSH Active Problems Active Problems: All Active Problems (Updated 01/09/21 @ 00:01 by Idris Sam) Kidney stone (Acute) Sinusitis (Acute) Uric acid kidney stone (Acute) Past Medical History Medical History Diverticulitis GI bleed High cholesterol HTN (hypertension) Kidney stone Surgical History Surgical History Hx of appendectomy Hx of colectomy Social History Social History Patient Tobacco Use Status: Never used Tobacco Advance Directives: No Advance Directives Information Provided: Yes Meds Allergies Allergy/AdvReac Type Severity Reaction Status Date / Time abacavir Allergy Unknown Unknown Verified 11/23/20 11:15 dicloxacillin [Dicloxacillin] Allergy Unknown UNKNOWN Verified 11/23/20 11:15 Sulfa (Sulfonamide Allergy Unknown RASH Verified 11/23/20 11:15 Antibiotics) Home Medications Medication Instructions Recorded Confirmed Last Taken Type amlodipine 10 mg tablet 1 tab PO DAILY 07/14/20 01/23/21 07/13/20 History calcium carbonate 600 mg (1,500 1 tab PO DAILY 07/14/20 01/23/21 07/13/20 History mg)-vitamin D3 200 unit tablet clobetasol 0.05 % topical ointment 1 appl TOPICAL BID PRN 07/14/20 01/23/21 07/13/20 History clotrimazole-betamethasone 1 1 appl TOPICAL BID 07/14/20 07/14/20 07/13/20 History %-0.05 % topical cream fluticasone propionate 50 1 spray INTRANASAL BID PRN 07/14/20 01/23/21 07/13/20 History mcg/actuation nasal spray,suspension lorazepam 0.5 mg tablet 1 tab PO DAILY 07/14/20 01/23/21 07/13/20 History losartan 50 mg tablet 1 tab PO DAILY 07/14/20 01/23/21 07/13/20 History metoprolol succinate 50 mg 75 mg PO DAILY 07/14/20 01/23/21 07/13/20 History tablet,extended release 24 hr oftzmnazrmtv-wiukdswq-kkegad tablet 1 tab PO DAILY 07/14/20 07/14/20 07/13/20 History nortriptyline 25 mg capsule 1 cap PO BEDTIME 07/14/20 01/23/21 07/13/20 History omega 3-yuw-mhf-fish oil 1,000 mg 1 cap PO DAILY 07/14/20 01/23/21 07/13/20 History (120 mg-180 mg) capsule (Fish Oil) omeprazole 20 mg capsule,delayed 1 cap PO DAILY@0630 07/14/20 01/23/21 07/13/20 History release simvastatin 20 mg tablet 1 tab PO BEDTIME 07/14/20 01/23/21 07/13/20 History Exam Exam Date and Time: February 02, 2021 1318 Height,Weight and Vital Signs: Height 5 ft 3 in Weight 72.121 kg Pertinent Lab Results Pertinent Lab Results: Laboratory Tests 01/08/21 01/08/21 14:08 14:08 WBC 9.2 Hgb 15.9 Hct 46.5 Plt Count 208 Sodium 141 Potassium 4.1 Chloride 105 Carbon Dioxide 24 BUN 21 H Creatinine 0.99 Narrative Narrative: EKG 01/12/21 (PCP) NSR ?LAE LVH compared to previous, increase in QT Assessment and Plan Assessment Anesthesia Assessment: Chart Reviewed Documented by User: Janey Odom MD 02/05/21 12:53 [facility] Past Medical History Medical History Diverticulitis GI bleed High cholesterol HTN (hypertension) Kidney stone Surgical History Surgical History Hx of appendectomy Hx of colectomy History of Problems with Anesthesia: No Social History Social History Patient Tobacco Use Status: Never used Tobacco Advance Directives: No Advance Directives Information Provided: Yes Meds Allergies Allergy/AdvReac Type Severity Reaction Status Date / Time abacavir Allergy Unknown Unknown Verified 11/23/20 11:15 dicloxacillin [Dicloxacillin] Allergy Unknown UNKNOWN Verified 11/23/20 11:15 Sulfa (Sulfonamide Allergy Unknown RASH Verified 11/23/20 11:15 Antibiotics) Home Medications Medication Instructions Recorded Confirmed Last Taken Type amlodipine 10 mg tablet 1 tab PO DAILY 07/14/20 01/23/21 07/13/20 History calcium carbonate 600 mg (1,500 1 tab PO DAILY 07/14/20 01/23/21 07/13/20 History mg)-vitamin D3 200 unit tablet clobetasol 0.05 % topical ointment 1 appl TOPICAL BID PRN 07/14/20 01/23/21 07/13/20 History clotrimazole-betamethasone 1 1 appl TOPICAL BID 07/14/20 07/14/20 07/13/20 History %-0.05 % topical cream fluticasone propionate 50 1 spray INTRANASAL BID PRN 07/14/20 01/23/21 07/13/20 History mcg/actuation nasal spray,suspension lorazepam 0.5 mg tablet 1 tab PO DAILY 07/14/20 01/23/21 07/13/20 History losartan 50 mg tablet 1 tab PO DAILY 07/14/20 01/23/21 07/13/20 History metoprolol succinate 50 mg 75 mg PO DAILY 07/14/20 01/23/21 07/13/20 History tablet,extended release 24 hr ehopidcaviln-tdyztwcw-hxazgy tablet 1 tab PO DAILY 07/14/20 07/14/20 07/13/20 History nortriptyline 25 mg capsule 1 cap PO BEDTIME 07/14/20 01/23/21 07/13/20 History omega 7-mkv-qxz-fish oil 1,000 mg 1 cap PO DAILY 07/14/20 01/23/21 07/13/20 Hist ory (120 mg-180 mg) capsule (Fish Oil) omeprazole 20 mg capsule,delayed 1 cap PO DAILY@0630 07/14/20 01/23/21 07/13/20 History release simvastatin 20 mg tablet 1 tab PO BEDTIME 07/14/20 01/23/21 07/13/20 History Exam Airway Mallampati Class: III (Small mouth, crowded teeth) TM Dist: >3cm Denture: Upper and Lower Heart: RRR Lungs: CTA Assessment and Plan Assessment Anesthesia Assessment: Anesthesia Plan Discussed Final Anesthetic Review History of Problems with Anesthesia: No NPO: Yes ASA Class: II Final Preanesthetic Review: Meds/Allgs Chart Reviewed, Consent Obtained/Reviewed and Anes Risks/Benef Reviewed Patient Risk: Low Procedure Risk: Low Anesthetic Plan Anesthetic Plan: GA Disposition: Standard PACU
--- NOTE | ~2021-02-05 | FL_ITS ---
EXAMINATION: XR FLUOROSCOPY WITH IMAGES CLINICAL INFORMATION: Stones COMPARISON: July 14, 2020 TECHNIQUE: Fluoroscopy performed by Dr. Johnathan Caraballo. Fluoroscopy time: 41.5 seconds 11.18 mGy Images: 1 FINDINGS: Single image demonstrates a wire overlying the distal portion of the expected location of the left ureter. FL/FL guidance in OR IMPRESSION: Single image provided during retrograde ureteroscopy.
[2021-02-05] MEDS: levoFLOXacin 500 MG TABLET PO (12:39)
[2021-02-05] MEDS: Lactated Ringers 1,000 ML 100 ML IVCONT (12:44)
[2021-02-05 12:45] VITALS: BP 141/68; PULSE 91; RESP 18; TEMP 36.2; O2SAT 97; BMI 28.3
--- NOTE | 2021-02-05 13:12 | MHC.SHP ---
Pre-Procedural Eval Section A Date of Service: 02/05/21 Section B Chief Complaint: kidney stone Details of Present Illness: Left hydronephrosis prior stone history Relevant Social History: None Present Medications: see Short Stay Collaborative assessment Medical History: Significant History History of Previous Operations: Relevant previous surgery/procedure and date(s) Allergies: Allergies Allergy/AdvReac Type Severity Reaction Status Date / Time abacavir Allergy Unknown Unknown Verified 11/23/20 11:15 dicloxacillin [Dicloxacillin] Allergy Unknown UNKNOWN Verified 11/23/20 11:15 Sulfa (Sulfonamide Allergy Unknown RASH Verified 11/23/20 11:15 Antibiotics) Review of Systems Sugical H&P ROS: Negative: Constitution, Cardiovascular, Respiratory, Neurological, Psychiatric, Hem-Onc, Allergic/Immunologic, Gastrointestinal, Genitourinary, Musculoskeletal, Integumentary, Endocrine and Eyes/Ears/Nose/Throat Exam Surgical H&P Exam: Normal: HEENT, Normal: Heart, Normal: Lungs, Normal: Extremities, Normal: Abdomen, Normal: Skin and Normal: Neurological Plan Diagnosis/Plan: Unchanged (Cystoscopy, left retrograde, left ureteroscopy, possible stent) I have reviewed the history and physical and performed a pertinent physical examination on my patient. No changes have occurred unless specified.
--- NOTE | 2021-02-05 13:45 | W.PM.OPN ---
Operative Note Operative Note Date of Service: 02/05/21 Narrative: PreOperative Diagnosis: Left persistent hydronephrosis Post Operative Diagnosis: Hydronephrosis resolved Procedure: - cystoscopy, left retrograde - left diagnostic ureteroscopy Surgeon: Dr Johnathan Caraballo Anesthesia: General Indications for procedure: Known stone former. Follow-up was found to have persistent left hydronephrosis on ultrasound. Recommendation for cystoscopy retrograde and ureteroscopy with intervention as warranted Procedure: After informed consent was verified patient was brought to the operating placed in supine position. Anesthesia was administered per protocol. Patient was placed in modified dorsal lithotomy position and prepped and draped in a sterile fashion. Safety pause time-out and side of surgery confirmed. Antibiotics confirmed. New cystoscopy was performed. A left retrograde examination was performed. Slight dilatation of to ureteric orifice at junction TURP bladder. Normal peristalsis seen. Sensor guidewire placed the level the renal pelvis. Rigid ureteroscopy performed. No defects seen, no ureteric stricture, no annular stricture, no evidence of stone. At the completion of the procedure the bladder was emptied. She tolerated procedure well and was transferred in stable condition to the recovery area. Pathology: None Drains: None
[2021-02-05 13:53] VITALS: BP 127/55; PULSE 78; RESP 16; TEMP 36.6; O2SAT 97
[2021-02-05 13:58] VITALS: BP 122/59; PULSE 72; RESP 16; O2SAT 99
[2021-02-05 14:03] VITALS: BP 130/62; PULSE 78; RESP 16; O2SAT 99
[2021-02-05 14:08] VITALS: BP 126/61; PULSE 73; RESP 16; O2SAT 99
[2021-02-05] MEDS: Acetaminophen 325 MG TABLET 650 MG PO (14:12)
[2021-02-05] MEDS: Phenazopyridine HCL 100 MG TABLET PO (14:12)
[2021-02-05 14:20] VITALS: BP 134/68; PULSE 71; RESP 16; TEMP 36.6; O2SAT 95
== END 2021-02-05 15:26 | disposition home or self-care (01) ==
PROVIDERS: PCP Family Medicine; Visit Provider Urology
PROC: (CPT 52351; principal; 2021-02-05 13:40)
DX: N32.89 Other specified disorders of bladder (principal); I10 Essential (primary) hypertension; Z87.442 Personal history of urinary calculi; M81.0 Age-related osteoporosis without current pathological fracture; Z90.49 Acquired absence of other specified parts of digestive tract; Z88.2 Allergy status to sulfonamides; Z88.8 Allergy status to other drugs, medicaments and biological substances
CPT/HCPCS: 52351; C1769; J1100; J2405; J3010; Q9967

== ENCOUNTER 2021-02-19 10:28 | Outpatient (REF) | payer MEDICARE, OTHER, SELFPAY ==
[2021-02-19 11:34] LABS: Estimated Glomerular Filt Rate > 60
[2021-02-19 11:58] LABS: Appearance Urine CLEAR; Color Urine STRAW; Glucose Urine UA NEG (NEG); Leukocyte Esterase Urine 3+ (NEG); Nitrite Urine NEG (NEG); PH 5.5 (5.0-8.0); Specific Gravity - Urine <= 1.005 (1.005-1.025); Urine Blood 2+ (NEG); Urine Ketones NEG (NEG); Urine Protein NEG (NEG-TRACE)
[2021-02-19 14:22] LABS: Bacteria Urine 1+ /LPF; Squamous Epithelial Cell Urine TRACE /LPF
[2021-02-19 14:23] LABS: WBC Clumps Urine NOTED
== END 2021-02-19 10:29 | disposition home or self-care (01) ==
LOC: HO.LAB 10:28
PROVIDERS: Urology; PCP Family Medicine
DX: N20.0 Calculus of kidney (principal)
CPT/HCPCS: 36415; 81001; 82565

== ENCOUNTER 2021-02-20 07:27 | Outpatient (REF) | payer MEDICARE, OTHER, SELFPAY ==
--- NOTE | ~2021-02-20 | CT_ITS ---
EXAMINATION: CT ABDOMEN AND PELVIS WITHOUT CONTRAST CLINICAL INFORMATION: Kidney stones COMPARISON: Previous renal ultrasounds most recent October [address] of the abdomen and pelvis most recent July 2020 TECHNIQUE: Multidetector volumetric imaging was performed from the superior aspect of the liver through the pubic symphysis. Sagittal and coronal reformatted images were obtained on the technologist's workstation. This CT examination was performed using dose optimization techniques as appropriate, variously including the following: *Automated exposure control *Adjustment of mA and/or kV according to patient size (this includes techniques or standardized protocols for targeted exams where dose is matched to indication/reason for exam; i.e. extremities or head) *Use of iterative reconstruction technique DLP: 532 mGy-cm FINDINGS: LUNG BASES: The visualized lung bases are unremarkable. LIVER, GALLBLADDER, AND BILIARY TREE: The liver is normal in size, shape, and attenuation. No focal hepatic lesion or biliary ductal dilatation is present. The gallbladder is unremarkable with no evidence of radiopaque gallstones, gallbladder wall thickening, or obvious pericholecystic inflammatory changes. PANCREAS: There are small calcifications in the pancreas suggestive of evidence of chronic pancreatitis. Pancreas is otherwise unremarkable. SPLEEN: Unremarkable. ADRENAL GLANDS: Unremarkable. KIDNEYS AND URETERS: The kidneys are normal in size, shape, and attenuation. There is bilateral renal cortical thinning. There are left renal peripelvic cysts. There is a small 2 mm stone in the upper pole of the right kidney. There is no hydronephrosis, ureteral dilatation or ureteral stone. BLADDER: Unremarkable. GASTROINTESTINAL TRACT: The stomach is not optimally distended. There is question of fold thickening of the proximal stomach. There is a probable posterior diverticulum arising from the proximal stomach. There is diverticulosis of the colon. The small and large bowel are otherwise unremarkable. The appendix is not identified and may have been removed. ABDOMINAL WALL: There is a small umbilical hernia containing fat. LYMPH NODES: Normal. VASCULAR: Unremarkable. PELVIC VISCERA: Unremarkable. OSSEOUS STRUCTURES: There is curvature of the lumbar spine to the left and degenerative change. There is mild grade 1 anterior subluxation of L4 with respect L5. Stable. CT/CT abdomen pelvis wo con IMPRESSION: Small nonobstructing right upper pole renal stone. Left renal peripelvic cyst. Bilateral renal cortical thinning. No hydronephrosis, ureteral dilatation or ureteral stone. Diverticulosis of the colon. Small gastric diverticulum.
== END 2021-02-20 07:28 | disposition home or self-care (01) ==
LOC: HO.CT 07:27
DX: N20.0 Calculus of kidney (principal)
CPT/HCPCS: 74176

== ENCOUNTER → 2021-02-26 12:51 | Outpatient (BNVA) | payer MEDICARE, OTHER, SELFPAY | PROVIDERS: PCP Family Medicine | DX: N20.0 Calculus of kidney (principal) | CPT/HCPCS: 99212 ==

== ENCOUNTER 2021-03-30 15:53 | Outpatient (REF) | payer MEDICARE, OTHER, SELFPAY ==
--- NOTE | ~2021-03-30 | MM_ITS ---
EXAMINATION: MM SCREENING DIGITAL BREAST TOMOSYNTHESIS, BILATERAL CLINICAL INFORMATION: Screening. Asymptomatic. The lifetime risk of breast cancer based on the Tyrer-Cuzick Model is 3%. COMPARISON: Mammography: 03/27/2020, 07/29/2018, 07/16/2017, 05/22/2016, 04/19/2015 TECHNIQUE: Digital breast tomosynthesis is performed in both the craniocaudal and mediolateral oblique views along with computer-aided detection (CAD). Synthesized 2D images are generated from the tomosynthesis. FINDINGS: There are scattered areas of fibroglandular density (ACR BI-RADS breast composition Category b). Left breast has scattered regional calcifications central breast without significant change. There is no interval mass or architectural abnormality. The bilateral axilla are unremarkable. There is chronic bilateral nipple retraction similar to prior studies. No skin thickening. Right breast has some scattered benign calcifications. There is a nodule under 5 mm periareolar 4:30 o'clock position, more conspicuous on current exam. Margins are incompletely defined. Patient will be recalled for additional imaging. MM/MM tomosynthesis screening BI IMPRESSION: 1. Right: Periareolar nodule lower inner breast. Margins incompletely defined. 2. Left: No significant changes from prior studies. ASSESSMENT: BI-RADS 0: Incomplete - Need Additional Imaging Evaluation RECOMMENDATION: 1. Additional views of the right breast (small spot CC, small spot LM). 2. Targeted ultrasound if warranted after review of the additional views. 3. Radiology department staff will contact the patient for additional imaging. This patient's information was entered into a reminder system with a target due date for their next mammogram.
== END 2021-03-30 15:54 | disposition home or self-care (01) ==
LOC: HO.MAMMO 15:53
PROVIDERS: Visit Provider Family Medicine
DX: Z12.31 Encounter for screening mammogram for malignant neoplasm of breast (principal)
CPT/HCPCS: 77063; 77067

== ENCOUNTER 2021-04-09 13:15 | Outpatient (REF) | payer MEDICARE, OTHER, SELFPAY ==
--- NOTE | ~2021-04-09 | MM_ITS ---
EXAMINATION: MM DIAGNOSTIC DIGITAL BREAST TOMOSYNTHESIS, RIGHT US DIAGNOSTIC ULTRASOUND BREAST, RIGHT CLINICAL INFORMATION: Recall from screening for periareolar nodule with incompletely defined margins. COMPARISON: Mammography: 03/30/2021, 03/27/2020, 07/29/2018, 07/16/2017 TECHNIQUE: Digital breast tomosynthesis is performed. 2D images are generated from the tomosynthesis. The following views are obtained: Spot CC, spot LM Ultrasound right breast is targeted to the periareolar region lower inner. Grayscale imaging and color Doppler are performed without and with harmonics. Patient is imaged supine and oblique position. FINDINGS: There are scattered areas of fibroglandular density (ACR BI-RADS breast composition Category b). Additional views show periareolar nodule 3:30 o'clock position. Margins are smooth but incompletely visualized. No spiculation or associated calcification. Finding is slightly larger when compared with remote prior mammography. Ultrasound demonstrates circumscribed anechoic nodule 3:00 position 2 cm from nipple 4 cm in size. There is no increased or decreased through transmission of sound. No associated internal or peripheral color flow. Results are discussed with the patient at time of visit. Finding most likely represents a cyst. As a precaution, short interval follow-up right breast imaging will be performed. MM/MM tomosynthesis added views R IMPRESSION: Circumscribed anechoic nodule periareolar 3:30 o'clock position. No increased or decreased through transmission of sound. ASSESSMENT: BI-RADS 3: Probably Benign RECOMMENDATION: Diagnostic right mammography in 6 months. Targeted right breast ultrasound if warranted. This patient's information was entered into a reminder system with a target due date for their next mammogram.
== END 2021-04-09 13:16 | disposition home or self-care (01) ==
LOC: HO.MAMMO 13:15
PROVIDERS: Visit Provider Family Medicine
DX: N63.15 Unspecified lump in the right breast, overlapping quadrants (principal); N63.14 Unspecified lump in the right breast, lower inner quadrant
CPT/HCPCS: 76642; 77061; 77065

== ENCOUNTER 2021-07-09 10:40 | Emergency (ER) | payer MEDICARE, OTHER, SELFPAY ==
[2021-07-09 11:22] VITALS: BP 147/72; PULSE 88; RESP 16; TEMP 36.8; O2SAT 96; BMI 28.7
[2021-07-09 12:39] LABS: MANUAL DIFF FLAG NO
[2021-07-09 12:46] LABS: Basophils Percent Auto 0.5 % (0-2); Eosinophils Absolute Auto 0.1 X10*3/uL (0.0-0.4); Eosinophils Percent Auto 1.2 % (0-4); Hematocrit 43.5 % (37.0-47.0); Hemoglobin 14.7 g/dl (12.0-16.0); Imm Gran Abs Auto 0.01 X10*3/uL (0.00-0.03); Imm Gran Pct Auto 0.2 % (0.0-0.4); Lymphocytes Absolute Auto 1.5 X10*3/uL (1.2-4.9); Lymphocytes Percent Auto 34.1 % (20-40); Mean Corpuscular HGB Conc 33.8 g/dl (31.0-35.0); Mean Corpuscular Hemoglobin 30.1 pg (27.0-33.0); Monocytes Absolute Auto 0.5 X10*3/uL (0.1-1.2); Monocytes Percent Auto 12.4 % (2-11); Neutrophils Absolute Auto 2.2 x10*3/uL (2.0-8.3); Neutrophils Percent Auto 51.6 % (45-73); Platelet Count 202 X10*3/uL (160-400); Red Blood Count 4.89 X10*6/uL (4.20-5.50); Red Cell Distribution Width 13.1 % (11.0-16.0); White Blood Count 4.3 X10*3/uL (4.8-10.8)
[2021-07-09 12:59] LABS: Anion Gap 12 (12-20); Blood Urea Nitrogen 20 mg/dL (9-16); Calcium 9.2 mg/dL (8.4-10.2); Carbon Dioxide 24 mmol/L (22-29); Chloride 106 mmol/L (96-108); Creatinine Clr Calc Pharmacy 61.1; Estimated Glomerular Filt Rate > 60; Glucose Random 107 mg/dL (60-115); Potassium 4.4 mmol/L (3.3-5.1); Sodium 138 mmol/L (135-145)
--- NOTE | 2021-07-09 14:07 | ED_ITS ---
HPI - Nausea/Vomiting/Diarrhea General Chief complaint: Nausea/Vomiting/Diarrhea Stated complaint: DIARRHEA Time Seen by Provider: 07/09/21 11:39 Source: patient Mode of arrival: ambulatory Limitations: no limitations History of Present Illness HPI Narrative: Patient is a 71-year-old female with a past medical history of diverticulitis, GI bleed in 2019, hypercholesterolemia, hypertension, history of colectomy and appendectomy. She is followed by a GI specialist and Dr. Kerrie Mcconnell. patient reports after eating lunch at work on Friday she subsequently had 5-6 episodes of yellow diarrhea. Upon awakening yesterday she had a few episodes of yellow diarrhea followed by black stool and diarrhea. She has been also having nausea and is vomiting black emesis. She reports intermittent abdominal c ramping but denies pain. states she has not taken any medication for diarrhea. Denies fevers, chills, sick contacts, dysuria, urinary frequency/urgency / hesitancy, chest pain, palpitations, shortness of breath, difficulty breathing. Related Data Home Medications Medication Instructions Recorded Confirmed amlodipine 10 mg tablet 1 tab PO DAILY 07/14/20 01/23/21 calcium carbonate 600 mg-vitamin 1 tab PO DAILY 07/14/20 01/23/21 D3 5 mcg (200 unit) tablet clobetasol 0.05 % topical ointment 1 appl TOPICAL BID PRN 07/14/20 01/23/21 clotrimazole-betamethasone 1 1 appl TOPICAL BID 07/14/20 07/14/20 %-0.05 % topical cream fluticasone propionate 50 1 spray INTRANASAL BID PRN 07/14/20 01/23/21 mcg/actuation nasal spray,suspension lorazepam 0.5 mg tablet 1 tab PO DAILY 07/14/20 02/05/21 losartan 50 mg tablet 1 tab PO DAILY 07/14/20 01/23/21 metoprolol succinate 50 mg 75 mg PO DAILY 07/14/20 01/23/21 tablet,extended release 24 hr ddyjnnkgcntu-prenigdf-jwxorp tablet 1 tab PO DAILY 07/14/20 07/14/20 nortriptyline 25 mg capsule 1 cap PO BEDTIME 07/14/20 01/23/21 omega 0-jvo-xkb-fish oil 1,000 mg 1 cap PO DAILY 07/14/20 01/23/21 (120 mg-180 mg) capsule (Fish Oil) omeprazole 20 mg capsule,delayed 1 cap PO DAILY@0630 07/14/20 01/23/21 release simvastatin 20 mg tablet 1 tab PO BEDTIME 07/14/20 01/23/21 nystatin 100,000 unit/gram topical TOPICAL 02/26/21 [place] [place] Rx's Medication Instructions Recorded phenazopyridine 100 mg tablet 100 mg PO TID PRN 4 Days #12 tab 07/14/20 (Pyridium) tamsulosin 0.4 mg capsule 0.4 mg PO BEDTIME #14 cap 07/14/20 tramadol 50 mg tablet 50 mg PO Q6H PRN #14 tab 07/14/20 azithromycin 250 mg tablet See Rx Instructions PO .COMPLEX #6 11/06/20 tab prednisone 20 mg tablet 20 mg PO DAILY 5 Days #5 tab 01/03/21 tamsulosin 0.4 mg capsule 0.4 mg PO DAILY 14 Days #14 cap 01/03/21 phenazopyridine 100 mg tablet 100 mg PO TID PRN 4 Days #12 tab 02/05/21 (Pyridium) pyridoxine (vitamin B6) 100 mg 100 mg PO DAILY 90 Days #90 tab 02/26/21 tablet Allergies Allergy/AdvReac Type Severity Reaction Status Date / Time abacavir Allergy Unknown Unknown Verified 02/26/21 13:07 dicloxacillin [Dicloxacillin] Allergy Unknown UNKNOWN Verified 02/26/21 13:07 Sulfa (Sulfonamide Allergy Unknown RASH Verified 02/26/21 13:07 Antibiotics) Review of Systems Review of Systems: Constitutional : No Weight loss, No Fever, No Chills ENT/Mouth :? No sore throat, No Rhinorrhea Eyes: No Swelling, No Redness Cardiovascular : No Chest Pain, No SOB, No Edema Respiratory : No Cough, No Sputum, No Wheezing Gastrointestinal : Positive Nausea, Positive Vomiting, positive Diarrhea, no abdominal pain, No Hematochezia, Positive Melena Genitourinary : No Dysuria, No Urinary Frequency, No Hematuria, No Urgency? Musculoskeletal : No joint pain, No Myalgias, No Joint Swelling Skin : No Skin Lesions, No rash Neuro : No Weakness, No Numbness, No Dizziness, No Headache Psych : No Anxiety/Panic, No Depression Heme/Lymph: No Bruising, No Lymphadenopathy Endocrine : No Polyuria, No Polydipsia Yes all other systems are reviewed and are negative FORMERLY [facility], [facility] Past Medical History Attestation statement: The following information was validated with the patient. Source: old records reviewed Medical History Diverticulitis GI bleed High cholesterol HTN (hypertension) Kidney stone Surgical History Hx of appendectomy Hx of colectomy Social History Social History Patient Tobacco Use Status: Never used Tobacco Advance Directives: Yes Advance Directives on File: Yes Advance Directives Date on File: 07/09/21 Physical Exam Vital Signs: Vital Signs: Last Vital Signs Temp 98.2 F 07/09/21 11:22 Pulse 90 07/09/21 16:06 Resp 16 07/09/21 11:22 BP 142/62 H 07/09/21 16:06 Pulse Ox 100 07/09/21 16:06 BMI result Body Mass Index 28.7 Vital signs have been reviewed as normal and appeared to be correct. Blood pressure mildly elevated 147/72.? Heart rate normal.? Respiration rate normal. Temperature normal.? Oxygen saturation normal. Appearance: Alert.?Oriented to person, place and time. No acute distress.?Normal affect. Eyes: Pupils equal, round and reactive to light.? ENT: Pharynx normal.?? Neck: Normal inspection.? Neck supple.?? CVS: Heart sounds normal. Normal heart rate and rhythm.? Pulses normal.?? Respiratory: No respiratory distress.? Lung sounds clear to auscultation bilaterally?? Abdomen: Soft and non-tender. Normoactive bowel sounds. No pulsatile mass.?? Skin: Skin warm and dry.? Normal skin color.? Normal skin turgor.?? Extremities: No lower extremity edema.? Neuro: Moves all extremities spontaneously. Sensation intact bilaterally. CN II- XII intact. No focal neuro deficits. Ambulates with normal steady gait. Course Course Course Narrative: Patient is a 71-year-old female being evaluated for black stool diarrhea and black emesis. She reports a history of upper GI bleed discovered on endoscopy, for which she was prescribed omeprazole and states she has been compliant with taking. Reports her last colonoscopy being 5 years ago and she is to for follow-up in January 2022, history of polyps. Denies family history of colon cancer. She denies use of Pepto-Bismol or other gvdj-iaq-lhnpztv medications for her diarrhea. She has no abdominal pain or tenderness on exam therefore would defer CT imaging at this time. Initial labs obtained in triage revealed stable hemoglobin and hematocrit 14.7 and 43.5 respectively, CMP is overall unremarkable, mildly elevated BUN at 20 but I suspect that this is secondary to dehydration. She is not on any anticoagulation or antiplatelets. Will send stool specimen for occult testing though stool in rectum was brown on exam today, will provide Zofran for nausea, and plan for p.o. trial. history and physical exam not consistent with hemorrhoids, diverticulitis, colitis, obstruction. Reevaluation(s) Reevaluation #1: Occult stool negative, patient received sublingual Zofran and has tolerated gin dillon garland, crackers, sandwhich. She is well appearing, nontoxic, afebrile, no tachycardia. Advised to contact her superintendent overhead distribution to schedule a follow-up visit in 1-2 days, continue taking omeprazole as prescribed, discussed reasons to return back to the emergency department, including nausea with persistent vomiting, bright red bloody stools from bloody emesis, abdominal pain, fevers, chills, chest pain shortness of breath, difficulty breathing, or any new/worsening symptoms or concerns. Patient agreed with plan of care. Time: 15:27 MDM - Nausea/Vomiting/Diarrhea Medical Records Attestation: I reviewed the patient's medical records. Lab Data Attestation: I reviewed the patient's lab results. Result diagrams: 07/09/21 12:34 07/09/21 12:34 Labs: Lab Results 07/09/21 07/09/21 07/09/21 Range/Units 12:34 12:34 14:09 WBC 4.3 L (4.8-10.8) X10*3/uL RBC 4.89 (4.20-5.50) X10*6/uL Hgb 14.7 (12.0-16.0) g/dl Hct 43.5 (37.0-47.0) % MCV 89.0 (80.0-98.0) fL MCH 30.1 (27.0-33.0) pg MCHC 33.8 (31.0-35.0) g/dl RDW 13.1 (11.0-16.0) % Plt Count 202 (160-400) X10*3/uL MPV 10.0 (9.4-12.3) fL Immature Gran % (Auto) 0.2 (0.0-0.4) % Neut % (Auto) 51.6 (45-73) % Lymph % (Auto) 34.1 (20-40) % [place] % (Auto) 12.4 H (2-11) % Eos % (Auto) 1.2 (0-4) % Baso % (Auto) 0.5 (0-2) % Lymph # (Auto) 1.5 (1.2-4.9) X10*3/uL [place] # (Auto) 0.5 (0.1-1.2) X10*3/uL Eos # (Auto) 0.1 (0.0-0.4) X10*3/uL Baso # (Auto) 0.0 (0.0-0.2) X10*3/uL Abs Immat Gran (auto) 0.01 (0.00-0.03) X10*3/uL Absolute Neuts (auto) 2.2 (2.0-8.3) x10*3/uL Absolute Nucleated RBC 0.000 (0.0-0.012) X10*3/uL Nucleated RBC % (auto) 0.0 (0.0-0.2) /100WBC Sodium 138 (135-145) mmol/L Potassium 4.4 (3.3-5.1) mmol/L Chloride 106 (96-108) mmol/L Carbon Dioxide 24 (22-29) mmol/L Anion Gap 12 (12-20) BUN 20 H (9-16) mg/dL Creatinine 0.81 (0.5-1.4) mg/dL Estim Creat Clear Calc 61.1 Estimated GFR > 60 Random Glucose 107 (60-115) mg/dL Calcium 9.2 D (8.4-10.2) mg/dL Stool Occult Blood NEGATIVE (NEGATIVE) Discharge Plan Discharge Clinical Impression: Gastroenteritis Patient Disposition: Home, Self-Care Instructions: Gastroenteritis (ED) Additional Instructions: Please contact your superintendent overhead distribution to schedule a follow-up visit in 1-2 days, continue taking omeprazole as prescribed. Please return back to the emergency department With any new or worsening symptoms or concerns, which may include nausea with persistent vomiting, bright red bloody stools or bloody vomit, abdominal pain, fevers, chills, chest pain shortness of breath, difficulty breathing. Prescriptions: No Action prednisone 20 mg tablet 20 mg PO DAILY 5 Days Qty: 5 0RF tamsulosin 0.4 mg capsule 0.4 mg PO DAILY 14 Days Qty: 14 0RF losartan 50 mg tablet 1 tab PO DAILY 0RF metoprolol succinate 50 mg tablet extended release 24 hr 75 mg PO DAILY 0RF calcium carbonate-vitamin D3 600 mg(1,500mg) -200 unit Tablet 1 tab PO DAILY 0RF nortriptyline 25 mg capsule 1 cap PO BEDTIME 0RF lorazepam 0.5 mg tablet 1 tab PO DAILY 0RF amlodipine 10 mg tablet 1 tab PO DAILY 0RF simvastatin 20 mg tablet 1 tab PO BEDTIME 0RF clotrimazole-betamethasone 1-0.05 % cream 1 appl topical BID 0RF omeprazole 20 mg capsule,delayed release(DR/EC) 1 cap PO DAILY@0630 0RF clobetasol 0.05 % ointment 1 appl topical BID PRN (Reason: Rash) 0RF fluticasone propionate 50 mcg/actuation spray,suspension 1 spray intranasal BID PRN (Reason: Allergy Symptoms) 0RF uxtlwvqprihn-jzjdtrev-lvctin Tablet 1 tab PO DAILY 0RF omega 5-bye-lec-fish oil [Fish Oil] 1,000 mg (120 mg-180 mg) Capsule 1 cap PO DAILY 0RF phenazopyridine [Pyridium] 100 mg tablet 100 mg PO TID PRN (Reason: spasm) 4 Days Qty: 12 0RF tramadol 50 mg tablet 50 mg PO Q6H PRN (Reason: pain (scale score 4-6)) Qty: 14 0RF tamsulosin 0.4 mg capsule 0.4 mg PO BEDTIME Qty: 14 0RF phenazopyridine [Pyridium] 100 mg tablet 100 mg PO TID PRN (Reason: spasm) 4 Days Qty: 12 0RF azithromycin 250 mg tablet See Rx Instructions PO .COMPLEX Qty: 6 0RF Rx Instructions: take 500 mg today (day 1), then 250 mg for 4 days (days 2-5) PO pyridoxine (vitamin B6) 100 mg tablet 100 mg PO DAILY 90 Days Qty: 90 1RF Stand Alone Forms: Work/School Release Interventions: ED Discharge Assessment Last Done: 07/09/21 16:14 Discharge Date/Time: 07/09/21 16:14
[2021-07-09 14:13] LABS: OBS Int Ctl Valid YES; OBS1 NEGATIVE (NEGATIVE)
[2021-07-09] MEDS: Ondansetron ODT 4 MG TAB.RAPDIS TRANSLINGU (14:53)
[2021-07-09 16:06] VITALS: BP 142/62; PULSE 90; O2SAT 100
== END 2021-07-09 16:14 | disposition home or self-care (01) ==
PROVIDERS: Nurse Practitioner Family; Emergency Provider Emergency Medicine; PCP Family Medicine
DX: K52.9 Noninfective gastroenteritis and colitis, unspecified (principal); R11.2 Nausea with vomiting, unspecified; I10 Essential (primary) hypertension; E78.00 Pure hypercholesterolemia, unspecified; Z79.02 Long term (current) use of antithrombotics/antiplatelets; Z79.899 Other long term (current) drug therapy
CPT/HCPCS: 36415; 80048; 82272; 85025; 99283; 99284

== ENCOUNTER 2021-08-08 16:25 | Outpatient (REF) | payer MEDICARE, OTHER, SELFPAY ==
--- NOTE | ~2021-08-08 | US_ITS ---
EXAMINATION: US RETROPERITONEAL LIMITED (RENAL ONLY) CLINICAL INFORMATION: Calculus of kidney. COMPARISON: CT abdomen and pelvis 02/20/2021. Renal ultrasound 10/26/2020 and 04/28/2019. TECHNIQUE: Real-time imaging of the kidneys. FINDINGS: RIGHT KIDNEY: 9.7 x 4.3 x 6.4 cm (SAG x AP x TRV). The kidney is normal in size, contour, and echogenicity. Renal cortical thickness is normal. No hydronephrosis. Within the upper pole there is a 7 mm cyst present. Within the lower pole there is a 6 x 4 x 5 mm homogeneous echogenic focus consistent with nonobstructing calculus or possible angiomyolipoma. LEFT KIDNEY: 10.1 x 5.2 x 4.7 cm (SAG x AP x TRV). The kidney is normal in size, contour, and echogenicity. Renal cortical thickness is normal. No renal calculi or hydronephrosis. Within the midpole there is a cortical low-density lesion with a thin septation within it, without internal vascularity with the appearance of a Bosniak 2 cyst. Within the lower pole there is a 1.8 x 1.2 x 0.9 cm simple appearing cyst. US/US renal BI IMPRESSION: Bilateral renal cysts. Nonobstructive right lower pole 6 mm calculus versus possible angiomyolipoma.
== END 2021-08-08 16:26 | disposition home or self-care (01) ==
LOC: HO.US 16:25
DX: N20.0 Calculus of kidney (principal)
CPT/HCPCS: 76775

== ENCOUNTER → 2021-08-30 08:52 | Outpatient (BNVA) | payer MEDICARE, OTHER, SELFPAY | PROVIDERS: PCP Family Medicine | DX: N20.0 Calculus of kidney (principal); N28.1 Cyst of kidney, acquired | CPT/HCPCS: 99212 ==

== ENCOUNTER 2021-10-08 13:25 | Outpatient (REF) | payer MEDICARE, OTHER, SELFPAY ==
--- NOTE | ~2021-10-08 | MM_ITS ---
EXAMINATION: MM DIAGNOSTIC DIGITAL BREAST TOMOSYNTHESIS, RIGHT US DIAGNOSTIC ULTRASOUND BREAST, RIGHT CLINICAL INFORMATION: Short interval six-month follow-up probable benign right breast nodule anterior 3:30 o'clock position. The lifetime risk of breast cancer based on the Tyrer-Cuzick Model is 6%. COMPARISON: Mammography: Mammography 04/09/2021, 03/30/2021 (BI-RADS 0), 03/27/2020, 07/29/2018; targeted right breast ultrasound 04/09/2021. TECHNIQUE: Digital breast tomosynthesis is performed in both the craniocaudal and mediolateral oblique views along with computer-aided detection (CAD). Synthesized 2D images are generated from the tomosynthesis. Additional right MLO view is provided. Ultrasound right breast is targeted to the anterior medial breast. Grayscale imaging and color Doppler are performed without and with harmonics. FINDINGS: There are scattered areas of fibroglandular density (ACR BI-RADS breast composition Category b). Parenchymal pattern is similar to prior exam. Nodularity anterior 3:30 o'clock position and subareolar breast are stable. There is no increasing nodule or architectural abnormality. No abnormal calcifications. The axilla and skin contours are unremarkable. Ultrasound demonstrates 2 small avascular anechoic nodules with circumscribed margins subareolar 3:00 and subareolar 3:30 o'clock position. No increased or decreased through transmission of sound. No interval internal echogenicity. Suspect small cysts, smaller measuring 2 x 3 mm and larger measuring just under 3 mm compared with prior measurements 4.0 x 3.3 mm. No solid mass or architectural abnormality. Results are discussed with the patient at time of visit. Right nodules will be reassessed again at time of annual bilateral diagnostic mammography, due in 6 months. MM/MM tomosynthesis diagnostic RT IMPRESSION: -No significant changes from prior diagnostic exam. -2 probable benign anechoic nodules without increased through-transmission of sound are stable to decreased. ASSESSMENT: BI-RADS 3: Probably Benign RECOMMENDATION: Diagnostic mammography at time of annual bilateral exam, due in 6 months. This patient's information was entered into a reminder system with a target due date for their next mammogram.
== END 2021-10-08 13:26 | disposition home or self-care (01) ==
LOC: HO.MAMMO 13:25
PROVIDERS: PCP Family Medicine; Visit Provider Family Medicine
DX: N63.15 Unspecified lump in the right breast, overlapping quadrants (principal)
CPT/HCPCS: 76642; 77061; 77065

== ENCOUNTER 2021-12-13 07:56 | Outpatient (REF) | payer MEDICARE, OTHER, SELFPAY ==
--- NOTE | ~2021-12-13 | CT_ITS ---
EXAMINATION: CT ABDOMEN WITHOUT AND WITH CONTRAST CLINICAL INFORMATION: Fatty renal lesions. COMPARISON: Previous renal ultrasound July [address] of the abdomen and pelvis February 2021. TECHNIQUE: Contiguous axial thin section helical images of the abdomen were performed before and after the administration of oral contrast and 85 mL of Omnipaque 350 intravenous contrast. The data set was reformatted in the coronal and sagittal planes and reviewed on an independent workstation. This CT examination was performed using dose optimization techniques as appropriate, variously including the following: *Automated exposure control *Adjustment of mA and/or kV according to patient size (this includes techniques or standardized protocols for targeted exams where dose is matched to indication/reason for exam; i.e. extremities or head) *Use of iterative reconstruction technique DLP: 354 mGy-cm FINDINGS: LUNG BASES: The lung bases are clear. LIVER, GALLBLADDER, AND BILIARY TREE: The liver is slightly low in attenuation suggestive of fatty infiltration. No focal liver lesion. Normal gallbladder. No biliary duct dilatation. PANCREAS: Small calcifications in the pancreas suggestive of changes from chronic pancreatitis. The pancreas is otherwise normal. SPLEEN: Normal. ADRENAL GLANDS AND KIDNEYS: Evaluation for renal stone is limited due to excreted contrast in the collecting systems. No stone is seen. There are bilateral peripelvic cysts, left greater than right. There are bilateral low-attenuation cortical lesions, left greater than right, largest measuring 1 cm in the lower pole of the left kidney. These probably represent small cysts however it is difficult to exclude a small angiomyolipoma. BOWEL LOOPS: There is a large gastric diverticulum arising from the proximal posterior stomach. There is diverticulosis of the colon. There are postsurgical changes to the right colon. LYMPH NODES: No enlarged lymph nodes. No ascites. VASCULAR: There is evidence of atherosclerotic disease. No aneurysm. BONES: Degenerative changes of the spine. CT/CT abdomen wo/w IV con IMPRESSION: No renal stone seen. Bilateral peripelvic cysts, left greater than right. Small bilateral low-attenuation cortical lesions, left greater than right. These probably represent small cysts however it is difficult to exclude a small angiomyolipoma. Mild fatty infiltration of the liver. Large gastric diverticulum. Diverticulosis of the colon. Fleischner guidelines were followed.
[2021-12-13 07:46] LABS: Blood Urea Nitrogen 15 mg/dL (9-16); Estimated Glomerular Filt Rate > 60
[2021-12-13] MEDS: iohexoL 350 MG/ML 100 ML INFUS..BTL IV (09:10)
== END 2021-12-13 07:57 | disposition home or self-care (01) ==
LOC: HO.CT 07:56
PROVIDERS: PCP Family Medicine
DX: D17.71 Benign lipomatous neoplasm of kidney (principal)
CPT/HCPCS: 36415; 74170; 82565; 84520; Q9967

== ENCOUNTER 2022-03-27 14:22 | Outpatient (REF) | payer MEDICARE, OTHER, SELFPAY ==
--- NOTE | ~2022-03-27 | MM_ITS ---
EXAMINATION: MM DIAGNOSTIC DIGITAL BREAST TOMOSYNTHESIS, BILATERAL US BREAST TARGETED, RIGHT CLINICAL INFORMATION: Six-month follow-up probable benign right breast nodule. COMPARISON: Mammography: 10/08/2021 and studies dating back to 04/06/2014. TECHNIQUE: Digital breast tomosynthesis is performed in both the craniocaudal and mediolateral oblique views along with computer-aided detection (CAD). Synthesized 2D images are generated from the tomosynthesis. Targeted right breast ultrasound. FINDINGS: There are scattered areas of fibroglandular density (ACR BI-RADS breast composition Category b). There are no new significant masses, abnormal calcifications, or other abnormalities. There is persistence of approximately 4 x 3 mm circumscribed density anterior and medial aspect of the right breast. Targeted right breast ultrasound demonstrates in the retroareolar region an approximately 4 x 3 mm circumscribed anechoic structure 3 o'clock position with some increased though-sound transmission in a region of numerous prominent ducts. No suspicious solid lesion is identified. Bilateral mammography in 12 months is recommended. Results are discussed with the patient at time of visit. MM/MM tomosynthesis diagnostic BI IMPRESSION: There are no significant changes from prior study. Persistence of right breast anterior density likely representing a cyst. Recommend 12 month follow-up bilateral mammography. ASSESSMENT: BI-RADS 3: Probably Benign. RECOMMENDATION: Diagnostic mammography at time of next annual exam, due in 12 months. This patient's information was entered into a reminder system with a target due date for their next mammogram.
== END 2022-03-27 14:23 | disposition home or self-care (01) ==
LOC: HO.MAMMO 14:22
PROVIDERS: PCP Family Medicine; Visit Provider Family Medicine
DX: R92.2 Inconclusive mammogram (principal)
CPT/HCPCS: 76642; 77062; 77066

== ENCOUNTER 2022-06-04 09:55 | Outpatient (REF) | payer MEDICARE, OTHER, SELFPAY ==
--- NOTE | ~2022-06-04 | US_ITS ---
EXAMINATION: US RETROPERITONEAL LIMITED (RENAL ONLY) CLINICAL INFORMATION: Calculus of kidney. COMPARISON: CT of the abdomen 12/13/2021. Renal ultrasound 08/08/2021 and 10/26/2020. TECHNIQUE: Real-time imaging of the kidneys. FINDINGS: RIGHT KIDNEY: 10.3 x 4.6 x 4.2 cm (SAG x AP x TRV). The kidney is normal in size, contour, and echogenicity. Renal cortical thickness appears decreased. There is a 5 mm lower pole echogenic focus most likely representing a tiny angiomyolipoma. No hydronephrosis. A 1 cm benign Bosniak class I cyst noted at the upper pole which needs no additional imaging or follow up. No solid renal masses. LEFT KIDNEY: 10.9 x 5.1 x 5.1 cm (SAG x AP x TRV). The kidney is normal in size, contour, and echogenicity. Renal cortical thickness appears decreased. No renal calculi or hydronephrosis. Benign parapelvic Bosniak class I simple cysts are present which need no additional imaging or follow up. No solid renal masses. US/US renal BI IMPRESSION: 1. 5 mm echogenic focus in the lower pole of the right kidney may represent a tiny AML as no calculi have been seen on prior CT scans. 2. Bilateral renal cortical thinning suggestive of medical renal disease.
== END 2022-06-04 09:56 | disposition home or self-care (01) ==
LOC: HO.US 09:55
PROVIDERS: PCP Family Medicine; Visit Provider Urology
DX: N20.0 Calculus of kidney (principal)
CPT/HCPCS: 76775

== ENCOUNTER → 2022-06-13 09:42 | Outpatient (BNVA) | payer MEDICARE, OTHER, SELFPAY | PROVIDERS: PCP Family Medicine; Visit Provider Nurse Practitioner Family | DX: N20.0 Calculus of kidney (principal); D17.71 Benign lipomatous neoplasm of kidney | CPT/HCPCS: 99212 ==

== ENCOUNTER 2022-12-04 12:58 | Outpatient (REF) | payer MEDICARE, OTHER, SELFPAY ==
--- NOTE | ~2022-12-04 | US_ITS ---
EXAMINATION: US RETROPERITONEAL LIMITED (RENAL ONLY) CLINICAL INFORMATION: Calculus of kidney. COMPARISON: Ultrasound retroperitoneal limited (renal only) 06/04/2022. CT abdomen without and with contrast 12/13/2021. Ultrasound retroperitoneal limited (renal only) 08/08/2021. TECHNIQUE: Real-time imaging of the kidneys. FINDINGS: RIGHT KIDNEY: 10.4 x 4.0 x 4.9 cm (SAG x AP x TRV). The kidney is normal in size, contour, and echogenicity. No renal calculi. At the upper pole, a 6 mm benign, simple cyst is seen, for which no imaging follow-up is recommended. LEFT KIDNEY: 10.8 x 4.7 x 5.0 cm (SAG x AP x TRV). The kidney is normal in size, contour, and echogenicity. No renal calculi or hydronephrosis. At the lower pole, 1.2 cm and 2.3 cm benign, simple parapelvic cysts are seen. These require no imaging follow-up. US/US renal BI IMPRESSION: Unremarkable examination. No renal calculi or hydronephrosis is seen bilaterally.
== END 2022-12-04 12:59 | disposition home or self-care (01) ==
LOC: HO.US 12:58
PROVIDERS: PCP Family Medicine; Visit Provider Urology
DX: D17.71 Benign lipomatous neoplasm of kidney (principal); N20.0 Calculus of kidney
CPT/HCPCS: 76775

== ENCOUNTER 2022-12-19 09:30 | Outpatient (AMB) | payer MEDICARE, OTHER, SELFPAY ==
--- NOTE | 2022-12-19 09:31 | A.OFFVIS_ITS ---
Intake Intake Visit Reasons: 6m follow up/US Intake Note: Patient presents today for a follow-up on US Results Completed on 12/04/2022: Meds- Vitamin B6 Allergies to Antibiotic- Sulfa Blood Thinner- None Exhibitions Curator Required: No Accompanied by: Self / Same As Patient Allergies abacavir Allergy (Unknown, Verified 12/19/22 09:32) Unknown dicloxacillin [Dicloxacillin] Allergy (Unknown, Verified 12/19/22 09:32) UNKNOWN Sulfa (Sulfonamide Antibiotics) Allergy (Unknown, Verified 12/19/22 09:32) RASH HPI HPI Comments History of Present Illness Details Lidia is a 72-year-old female who presents today to the office for a follow-up. 12/19/2022? She is followed today for renal US results. 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 The patient was educated, and instructed on the importance of drinking adequate amount of fluid daily at that time. Renal u/s in 6 months was ordered, and she was advised to follow-up in 6 months with imaging to be completed prior or sooner with any questions or concerns during that time. I reviewed the renal US results from 12/04/2022 revealed unremarkable examination. No renal calculi or hydronephrosis is seen bilaterally. She has a history of kidney stones. She denies any urine leakage or burning with urination. Evaluation today?UA?Leukocytes: negative; blood: negative. Plan: Repeat Renal US did not indicate angiomyolipoma, bilateral simple cyst Follow up in 1 year with Nurse Practitioner Fior Unger, continue to monitor for kidney stones, renal US prior. Continue vitamin B6. [facility] Medical History Angiomyolipoma of kidney High cholesterol HTN (hypertension) GI bleed Kidney stone Diverticulitis Surgical History Hx of colectomy Hx of appendectomy Social History Patient Tobacco Use Status: Never used Tobacco Advance Directives Date on File: 07/09/21 Review of Systems Const All systems reviewed & are unremarkable except as noted in HPI and below Reports as per HPI Eyes Reports no additional complaints ENT Reports no additional complaints Card Reports no additional complaints Resp Reports no additional complaints GI Reports no additional complaints Reports as per HPI Musc Reports no additional complaints Neuro Reports no additional complaints Psych Reports no additional complaints Endo Reports no additional complaints Brody/Lymph Reports no additional complaints Aller/Immun Reports no additional complaints Results AMB Urinalysis, Automated UA Leukoctes 0 Vijay/uL Last Edit by Chey Murdock [facility] on 12/19/22 10:19 UA Nitrite Negative Last Edit by Chey Murdock [facility] on 12/19/22 10:19 UA Urobilinogen 0.2 mg/dL Last Edit by Chey Murdock [facility] on 12/19/22 10:1 9 UA Protein 0 mg/dL Last Edit by Chey Murdock [facility] on 12/19/22 10:19 UA pH 6.0 Last Edit by Chey Murdock [facility] on 12/19/22 10:19 UA Blood 0 [place]/uL Last Edit by Chey Murdock [facility] on 12/19/22 10:19 UA Specific [place] 1.005 Last Edit by Chey Murdock [facility] on 12/19/22 10: 19 UA Ketone Negative Last Edit by Chey Murdock [facility] on 12/19/22 10:19 UA Bilirubin 0 mg/dL Last Edit by Chey Murdock [facility] on 12/19/22 10:19 UA Glucose 0 mg/dL Last Edit by Chey Murdock [facility] on 12/19/22 10:19 Results Reviewed Results Reviewed: Laboratory Last Values Urine pH (Auto) 6.0 12/19/22 09:35 Specific [place] (Auto) 1.005 12/19/22 09:35 Urine Protein (Auto) 0 mg/dL 12/19/22 09:35 Glucose (UA)(Auto) 0 mg/dL 12/19/22 09:35 Urine Ketones (Auto) Negative 12/19/22 09:35 Urine Blood (Auto) 0 [place]/uL 12/19/22 09:35 Urine Nitrite (Auto) Negative 12/19/22 09:35 Urine Bilirubin (Auto) 0 mg/dL 12/19/22 09:35 Urine Urobilinogen (Auto) 0.2 mg/dL 12/19/22 09:35 Leukocyte Esterase (Auto) 0 Vijay/uL 12/19/22 09:35 Date of Service: 12/04/22 EXAMINATION:? US RETROPERITONEAL LIMITED (RENAL ONLY) CLINICAL INFORMATION: Calculus of kidney. COMPARISON:? Ultrasound retroperitoneal limited (renal only) 06/04/2022. CT abdomen without and with contrast 12/13/2021. Ultrasound retroperitoneal limited (renal only) 08/08/2021. FINDINGS: RIGHT KIDNEY: 10.4 x 4.0 x 4.9 cm (SAG x AP x TRV). The kidney is normal in size, contour, and echogenicity. No renal calculi. At the upper pole, a 6 mm benign, simple cyst is seen, for which no imaging follow-up is recommended. LEFT KIDNEY: 10.8 x 4.7 x 5.0 cm (SAG x AP x TRV). The kidney is normal in size, contour, and echogenicity. No renal calculi or hydronephrosis. At the lower pole, 1.2 cm and 2.3 cm benign, simple parapelvic cysts are seen. These require no imaging follow-up. IMPRESSION:? Unremarkable examination. No renal calculi or hydronephrosis is seen bilaterally. Assessment & Plan Assessment & Plan (1) Renal cysts, acquired, bilateral: Code(s): N28.1 - Cyst of kidney, acquired (2) History of kidney stones: Code(s): Z87.442 - Personal history of urinary calculi Plan Renal US did not indicate angiomyolipoma, bilateral simple cyst Follow up in 1 year with Nurse Practitioner Fior Unger, renal US prior. Continue vitamin B6. Orders: Orders US renal BI 10 Months N28.1 - Cyst of kidney, acquired, Z87.442 - Personal history of urinary calculi AMB Urinalysis Automated Today Z13.9 - Encounter for screening, unspecified Medications: Refilled pyridoxine (vitamin B6) 50 mg (1/2 x 100 mg) PO DAILY 45 tabs 3RF 90 days N13.2 - Hydronephrosis with renal and ureteral calculous obstruction Patient Instructions: The patient had an opportunity to ask questions regarding treatment plan. All questions were answered. Imaging, Laboratory studies and physical exam results were discussed and reviewed in detail. No major barriers to understanding were identified. The patient expressed understanding and agreement with the above treatment plan.? ? ? The patient is aware they should contact our office by phone for worsening of their current condition or the appearance of new symptoms. Compliance is encouraged with any medications and followup testing that is ordered.? ? ? It is a privilege to be allowed the opportunity to participate in the urologic care of your patient. If you have any questions or concerns regarding treatment for the above conditions please do not hesitate to contact me. The office telephone contact is [phone].? ? ? This note is constructed in part using voice recognition software. While every effort has been made to ensure accuracy clinical care manager errors may have been included.? ? ? Yours sincerely,? ? ? Jena Hernández MD? ? Coding Level of Care Code Est Pt Level 3 (92474) Diagnoses Renal cysts, acquired, bilateral N28.1 History of kidney stones Z87.442
--- NOTE | 2022-12-19 09:31 | A.OFFVIS_ITS ---
Intake Intake Visit Reasons: 6m follow up/US Allergies abacavir Allergy (Unknown, Verified 12/19/22 09:32) Unknown dicloxacillin [Dicloxacillin] Allergy (Unknown, Verified 12/19/22 09:32) UNKNOWN Sulfa (Sulfonamide Antibiotics) Allergy (Unknown, Verified 12/19/22 09:32) RASH PFSH Medical History Angiomyolipoma of kidney Diverticulitis GI bleed High cholesterol HTN (hypertension) Kidney stone Surgical History Hx of appendectomy Hx of colectomy Social History Patient Tobacco Use Status: Never used Tobacco Advance Directives Date on File: 07/09/21 Assessment & Plan Assessment & Plan Patient Instructions: The patient had an opportunity to ask questions regarding treatment plan. All questions were answered. Imaging, Laboratory studies and physical exam results were discussed and reviewed in detail. No major barriers to understanding were identified. The patient expressed understanding and agreement with the above treatment plan.? ? ? The patient is aware they should contact our office by phone for worsening of their current condition or the appearance of new symptoms. Compliance is encouraged with any medications and followup testing that is ordered.? ? ? It is a privilege to be allowed the opportunity to participate in the urologic care of your patient. If you have any questions or concerns regarding treatment for the above conditions please do not hesitate to contact me. The office telephone contact is [phone].? ? ? This note is constructed in part using voice recognition software. While every effort has been made to ensure accuracy computer game programmer errors may have been included.? ? ? Yours sincerely,? ? ? Jena Hernández MD? ? Coding
== END 2022-12-19 09:56 | disposition home or self-care (01) ==
PROVIDERS: PCP Family Medicine; Visit Provider Urology
DX: N28.1 Cyst of kidney, acquired (principal); Z87.442 Personal history of urinary calculi; Z13.9 Encounter for screening, unspecified
CPT/HCPCS: 99213

== ENCOUNTER → 2022-12-19 09:30 | Outpatient (BNVA) | payer MEDICARE, OTHER, SELFPAY | PROVIDERS: Visit Provider Urology | DX: N28.1 Cyst of kidney, acquired (principal); Z87.442 Personal history of urinary calculi | CPT/HCPCS: 81003; 99212 ==

== ENCOUNTER 2023-02-17 09:22 | Day surgery (SDC) | payer MEDICARE, OTHER, SELFPAY ==
[2023-02-14 07:35] VITALS: BMI 29.2
--- NOTE | 2023-02-14 10:02 | HO.ANESPROP2 ---
HPI - Anesthesia Eval Consult details Narrative: 72yo F for Colonoscopy PMFSH Active Problems Active Problems: All Active Problems (Updated 02/14/23 @ 07:20 by Sandie Bhakta RN) Renal cysts, acquired, bilateral (Acute) History of kidney stones (Acute) Sinusitis (Acute) Uric acid kidney stone (Acute) Angiomyolipoma of kidney (Acute) Kidney stone (Acute) Past Medical History Medical History Migraine Breast cyst Angiomyolipoma of kidney High cholesterol HTN (hypertension) GI bleed Kidney stone Diverticulitis Surgical History Surgical History Hx of tonsillectomy Hx of colectomy Hx of appendectomy History of Problems with Anesthesia: No Social History Social History Patient Tobacco Use Status: Never used Tobacco Have you been hit, kicked, punched, or otherwise hurt by someone within the past year? If so, by whom?: No Are you DNR?: No Advance Directives: No Advance Directives Information Provided: Yes Advance Directives Date on File: 07/09/21 Recently lost weight without trying: No Eating poorly because of decreased appetite: No Nutrition Risks: No Nutritional Risk Patient : No Meds Allergies Allergy/AdvReac Type Severity Reaction Status Date / Time abacavir Allergy Unknown Unknown Verified 12/19/22 09:32 dicloxacillin [Dicloxacillin] Allergy Unknown UNKNOWN Verified 12/19/22 09:32 Sulfa (Sulfonamide Allergy Unknown RASH Verified 12/19/22 09:32 Antibiotics) Home Medications Medication Instructions Recorded Confirmed Last Taken Type fluticasone propionate 50 1 spray intranasal BID PRN Allergy 07/14/20 02/14/23 07/13/20 History mcg/actuation nasal Symptoms spray,suspension lorazepam 0.5 mg tablet 1 tab PO DAILY 07/14/20 02/14/23 02/05/21 07:00 History losartan 50 mg tablet 1 tab PO DAILY 07/14/20 02/14/23 07/13/20 History metoprolol succinate 50 mg 75 mg PO DAILY 07/14/20 02/14/23 02/17/23 History tablet,extended release 24 hr nortriptyline 25 mg capsule 1 cap PO BEDTIME 07/14/20 02/14/23 07/13/20 History omega 4-nnq-coo-fish oil 1,000 mg 1 cap PO DAILY 07/14/20 02/14/23 07/13/20 History (120 mg-180 mg) capsule (Fish Oil) omeprazole 20 mg capsule,delayed 1 cap PO DAILY@0630 07/14/20 02/14/23 02/17/23 History release simvastatin 20 mg tablet 1 tab PO BEDTIME 07/14/20 02/14/23 07/13/20 History amlodipine 10 mg tablet 10 mg PO DAILY 02/14/23 02/14/23 02/17/23 History multivitamin 1 tab PO DAILY 02/14/23 02/14/23 Unknown History Exam Exam Date and Time: February 14, 2023 1002 Height,Weight and Vital Signs: Height 5 ft 3 in Weight 74.843 kg Assessment and Plan Assessment Anesthesia Assessment: Chart Reviewed Final Anesthetic Review History of Problems with Anesthesia: No
[2023-02-17 09:52] VITALS: BP 149/72; PULSE 104; RESP 18; TEMP 36.6; O2SAT 95
[2023-02-17] MEDS: Lactated Ringers 1,000 ML 100 ML IVCONT (09:58)
--- NOTE | 2023-02-17 10:42 | P.CONAN_ITS ---
[facility] Active Problems Active Problems: All Active Problems (Updated 02/14/23 @ 07:20 by Sandie Bhakta RN) Renal cysts, acquired, bilateral (Acute) History of kidney stones (Acute) Sinusitis (Acute) Uric acid kidney stone (Acute) Angiomyolipoma of kidney (Acute) Kidney stone (Acute) Past Medical History Medical History Migraine Breast cyst Angiomyolipoma of kidney High cholesterol HTN (hypertension) GI bleed Kidney stone Diverticulitis Functional capacity: independent ambulation Patient : No Family History Family history of problems with anesthesia: No Surgical History Surgical History Hx of tonsillectomy Hx of colectomy Hx of appendectomy History of Problems with Anesthesia: No Social History Social History Patient Tobacco Use Status: Never used Tobacco Have you been hit, kicked, punched, or otherwise hurt by someone within the past year? If so, by whom?: No Are you DNR?: No Advance Directives: No Advance Directives Information Provided: Yes Advance Directives Date on File: 07/09/21 Recently lost weight without trying: No Eating poorly because of decreased appetite: No Nutrition Risks: No Nutritional Risk Patient : No Meds Allergies Allergy/AdvReac Type Severity Reaction Status Date / Time abacavir Allergy Unknown Unknown Verified 12/19/22 09:32 dicloxacillin [Dicloxacillin] Allergy Unknown UNKNOWN Verified 12/19/22 09:32 Sulfa (Sulfonamide Allergy Unknown RASH Verified 12/19/22 09:32 Antibiotics) Active Medications: Current Medications Lactated Ringer's (Lr) 1,000 mls @ 100 mls/hr IVCONT .Q10H USHA Last Admin: 02/17/23 09:58 Dose: 100 mls/hr Sodium Biphosphate/Sodium Phosphate (Sodium Phosphate,[place]-Dibasic 133 Ml Enema) 133 ml [place] ONCE PRN PRN Reason: Poor Colonoscopy Prep Results Home Medications Medication Instructions Recorded Confirmed Last Taken Type fluticasone propionate 50 1 spray intranasal BID PRN Allergy 07/14/20 02/14/23 07/13/20 History mcg/actuation nasal Symptoms spray,suspension lorazepam 0.5 mg tablet 1 tab PO DAILY 07/14/20 02/14/23 02/05/21 07:00 History losartan 50 mg tablet 1 tab PO DAILY 07/14/20 02/14/23 07/13/20 History metoprolol succinate 50 mg 75 mg PO DAILY 07/14/20 02/14/23 07/13/20 History tablet,extended release 24 hr nortriptyline 25 mg capsule 1 cap PO BEDTIME 07/14/20 02/14/23 07/13/20 History omega 0-krc-xpt-fish oil 1,000 mg 1 cap PO DAILY 07/14/20 02/14/23 07/13/20 History (120 mg-180 mg) capsule (Fish Oil) omeprazole 20 mg capsule,delayed 1 cap PO DAILY@0630 07/14/20 02/14/23 07/13/20 History release simvastatin 20 mg tablet 1 tab PO BEDTIME 07/14/20 02/14/23 07/13/20 History amlodipine 10 mg tablet 10 mg PO DAILY 02/14/23 02/14/23 Unknown History multivitamin 1 tab PO DAILY 02/14/23 02/14/23 Unknown History Exam Exam Date and Time: February 17, 2023 1042 Height,Weight and Vital Signs: Height 5 ft 3 in Weight 74.843 kg Last Vital Signs Temp 97.9 F 02/17/23 09:52 Pulse 104 H 02/17/23 09:52 Resp 18 02/17/23 09:52 BP 149/72 H 02/17/23 09:52 Pulse Ox 95 02/17/23 09:52 O2 Del Method Room Air 02/17/23 09:52 Airway Mallampati Class: II TM Dist: >3cm Neck ROM: Full Heart: RRR Lungs: CTA Assessment and Plan Assessment Anesthesia Assessment: Anesthesia Plan Discussed Final Anesthetic Review Family History of Problems with Anesthesia: No History of Problems with Anesthesia: No NPO: Yes ASA Class: II Final Preanesthetic Review: Meds/Allgs Chart Reviewed, Consent Obtained/Reviewed and Anes Risks/Benef Reviewed Patient Risk: Low Procedure Risk: Low Anesthetic Plan Anesthetic Plan: MAC: Disposition: Standard PACU
[2023-02-17 11:42] VITALS: BP 105/42; PULSE 77; TEMP 37.6; O2SAT 92
--- NOTE | 2023-02-17 11:43 | PM.OP ---
Brief Operative Note Date of Service: 02/17/23 Pre-op diagnosis: Screening Post-op diagnosis: other (Colon polyp) Procedure: Colonoscopy to the anastomosis and small intestine with cold snare polypectomy at 60cm with placement of 3 Resolution clips Surgeon: Joe Agudelo MD Anesthesia: MAC Was an [employer] used for this Procedure?: No Estimated blood loss (mL): 2.0 Pathology: other (A. Polyp at 60cm) Condition: stable Disposition: PACU
[2023-02-17 11:56] VITALS: BP 125/68; PULSE 74; O2SAT 96
[2023-02-17 12:11] VITALS: BP 138/70; PULSE 75; TEMP 36.7; O2SAT 96
--- NOTE | 2023-02-17 13:21 | HO.POSTANES ---
Post Anesthesia Evaluation Post Anesthesia Evaluation Date of Service: 02/17/23 Vital Signs: Vital Signs Temp Pulse Resp BP Pulse Ox O2 Del Method O2 Flow Rate 02/17/23 12:11 98.1 F 75 138/70 96 Room Air 02/17/23 11:56 74 125/68 96 Nasal Cannula 3 02/17/23 11:42 99.7 F 77 105/42 L 92 Room Air 02/17/23 09:52 97.9 F 104 H 18 149/72 H 95 Room Air Anesthesia: Monitored Mental Status: Awake Pain Control: Satisfactory Nausea/Vomiting: None Hydration: Adequate Anesthesia-Related Issues: No Anes. Related Issues
--- NOTE | 2023-02-17 20:39 | OP_ITS ---
DATE OF SERVICE: 02/17/2023 SURGEON: Joe Agudelo MD INDICATIONS: The patient presents for evaluation of colorectal cancer screening and personal history of colon polyp. Full consent has been obtained from her for this, including risks of bleeding and perforation. PREOPERATIVE DIAGNOSIS: Colorectal cancer screening and personal history of colon polyp. POSTOPERATIVE DIAGNOSIS: Colorectal cancer screening, personal history of colon polyp, colon polyp, diverticulosis, and internal hemorrhoids. PROCEDURE PERFORMED: Colonoscopy to the anastomosis and small bowel with cold snare polypectomy and placement of three Resolution clips. ESTIMATED BLOOD LOSS: COMPLICATIONS: ANESTHESIA: Medication used: Monitored anesthesia care. ASSISTANTS: SPECIMENS: DESCRIPTION OF PROCEDURE: The patient was placed in the left lateral decubitus position. The digital rectal exam revealed no abnormalities. The Olympus video pediatric colonoscope was entered into the rectum and advanced easily to the anastomosis. The small bowel was cannulated and appeared normal. The scope was withdrawn back into the colon. The entire anastomosis appeared normal. The scope was slowly withdrawn, assessing all mucosal surfaces carefully. Preparation was excellent. At 60 cm was an approximately 8 mm polyp, which was removed by cold snare polypectomy and recovered by suction. The polypectomy site appeared clean, without any sign of residual polyp. Due to persistent oozing despite irrigation, I did place three Resolution clips on the polypectomy site with good deployment and good hemostasis. I did not visualize any other polyps, colitis, nor angiodysplasia. There was a mild amount of sigmoid diverticulosis. In the rectum, the scope was retroflexed, visualizing internal hemorrhoids, but no other pathology. The rectal mucosa appeared normal. Scope was straightened and withdrawn from the patient. She tolerated the procedure well and was returned to the recovery area in stable condition. IMPRESSION: 1. Colon polyp. 2. Diverticulosis. 3. Internal hemorrhoids. PLAN: The results of the pathology will be checked. I would recommend a repeat colonoscopy in 5 years for further screening. She was advised not to use any aspirin nor NSAIDs for 1 week. She will, otherwise, see me on a p.r.n. basis. MD XOCHITL Barillas/DANIEL / [phone] ROCCO
== END 2023-02-17 12:48 | disposition home or self-care (01) ==
PROVIDERS: PCP Family Medicine; Visit Provider Internal Medicine
PROC: 0DJD8ZZ Inspection of Lower Intestinal Tract, Via Natural or Artificial Opening Endoscopic (ICD-10-PCS; CPT 45378; principal; 2023-02-17 10:40)
DX: Z12.11 Encounter for screening for malignant neoplasm of colon (principal); Z86.010 Personal history of colon polyps; D12.4 Benign neoplasm of descending colon; K57.30 Diverticulosis of large intestine without perforation or abscess without bleeding; K64.8 Other hemorrhoids; Z98.0 Intestinal bypass and anastomosis status; Z90.49 Acquired absence of other specified parts of digestive tract; K92.1 Melena; R14.3 Flatulence; I10 Essential (primary) hypertension; R14.0 Abdominal distension (gaseous); E78.00 Pure hypercholesterolemia, unspecified; Z79.51 Long term (current) use of inhaled steroids; Z79.899 Other long term (current) drug therapy; Z87.19 Personal history of other diseases of the digestive system; Z87.442 Personal history of urinary calculi; Z88.2 Allergy status to sulfonamides; Z88.1 Allergy status to other antibiotic agents
CPT/HCPCS: 45385; 88305

== ENCOUNTER 2023-03-26 14:24 | Outpatient (REF) | payer MEDICARE, OTHER, SELFPAY ==
--- NOTE | ~2023-03-26 | MM_ITS ---
EXAMINATION: MM DIAGNOSTIC DIGITAL BREAST TOMOSYNTHESIS, BILATERAL CLINICAL INFORMATION: Follow-up COMPARISON: Mammography: 04/09/2021, 03/30/2021 (BI-RADS 0), 03/27/2020, 07/29/2018; targeted right breast ultrasound 04/09/2021. TECHNIQUE: Digital breast tomosynthesis is performed in both the craniocaudal and mediolateral oblique views along with computer-aided detection (CAD). Synthesized 2D images are generated from the tomosynthesis. FINDINGS: There are scattered areas of fibroglandular density (ACR BI-RADS breast composition Category b). Stable bilateral scarring and nipple inversion. There are a few stable scattered benign type calcifications. There are no suspicious masses, suspicious grouped calcifications, or areas of architectural distortion in either breast. The parenchymal pattern is stable from prior exams. No skin or axillary changes. MM/MM tomosynthesis diagnostic BI IMPRESSION: There are no significant changes from prior study. No findings significant for malignancy. Stable benign findings. ASSESSMENT: BI-RADS BI-RADS 2 - Benign Findings RECOMMENDATION: 1 year F/U Results were provided to the patient at time of visit by the technologist. This patient's information was entered into a reminder system with a target due date for their next mammogram.
== END 2023-03-26 14:25 | disposition home or self-care (01) ==
LOC: HO.MAMMO 14:24
PROVIDERS: PCP Family Medicine; Visit Provider Family Medicine
DX: R92.2 Inconclusive mammogram (principal)
CPT/HCPCS: 77062; 77066

== ENCOUNTER → 2023-03-26 14:30 | Outpatient (BNV) | payer MEDICARE, OTHER, SELFPAY | PROVIDERS: PCP Family Medicine; Visit Provider Radiology Diagnostic Radiology | DX: R92.2 Inconclusive mammogram (principal) | CPT/HCPCS: 77062; 77066; G0279 ==

== ENCOUNTER 2023-09-30 02:32 | Emergency (ER) | payer MEDICARE, OTHER, SELFPAY ==
--- NOTE | ~2023-09-30 | XR_ITS ---
EXAMINATION: XR ANKLE, LEFT CLINICAL INFORMATION: Pain. COMPARISON: None available. TECHNIQUE: AP, lateral, and mortise views of the left ankle. FINDINGS: No fracture. Alignment is anatomic. No erosions. Joint spaces are maintained. Soft tissues are normal. XR/XR ankle LT 2V IMPRESSION: No significant abnormality identified.
--- NOTE | ~2023-09-30 | XR_ITS ---
EXAMINATION: XR ANKLE, RIGHT CLINICAL INFORMATION: Pain. COMPARISON: None available. TECHNIQUE: AP, lateral, and mortise views of the right ankle. FINDINGS: No fracture. Alignment is anatomic. No erosions. Joint spaces are maintained. Soft tissues are normal. XR/XR ankle RT 2V IMPRESSION: No significant abnormality identified.
[2023-09-30 02:44] VITALS: BP 182/79; PULSE 98; RESP 16; TEMP 37; O2SAT 94; BMI 28.8
--- NOTE | 2023-09-30 07:07 | ED_ITS ---
HPI - Extremity Injury (Lower) General Chief Complaint: Extremity Injury, Lower Stated Complaint: ankle pain Time Seen by Provider: 09/30/23 04:37 Source: patient Mode of arrival: ambulatory Limitations: no limitations History of Present Illness ED Provider: judy RUIZ Narrative: Patient complaining of pain and bilateral ankle when she removed her stockings and tripped earlier mild swelling of the left ankle noted patient ambulatory as such Related Data Home Medications ?Medication ?Instructions ?Recorded ?Confirmed fluticasone propionate 50 1 spray intranasal BID PRN Allergy 07/14/20 02/14/23 mcg/actuation nasal Symptoms spray,suspension lorazepam 0.5 mg tablet 1 tab PO DAILY 07/14/20 02/14/23 losartan 50 mg tablet 1 tab PO DAILY 07/14/20 02/14/23 metoprolol succinate 50 mg 75 mg PO DAILY 07/14/20 02/14/23 tablet,extended release 24 hr nortriptyline 25 mg capsule 1 cap PO BEDTIME 07/14/20 02/14/23 omega 2-nyy-cmy-fish oil 1,000 mg 1 cap PO DAILY 07/14/20 02/14/23 (120 mg-180 mg) capsule (Fish Oil) omeprazole 20 mg capsule,delayed 1 cap PO DAILY@0630 07/14/20 02/14/23 release simvastatin 20 mg tablet 1 tab PO BEDTIME 07/14/20 02/14/23 amlodipine 10 mg tablet 10 mg PO DAILY 02/14/23 02/14/23 multivitamin 1 tab PO DAILY 02/14/23 02/14/23 Previous Rx's ?Medication ?Instructions ?Recorded pyridoxine (vitamin B6) 100 mg 50 mg (1/2 x 100 mg) PO DAILY 90 12/19/22 tablet days #45 tabs Allergies Allergy/AdvReac Type Severity Reaction Status Date / Time abacavir Allergy Unknown Unknown Verified 09/30/23 02:45 dicloxacillin [Dicloxacillin] Allergy Unknown UNKNOWN Verified 09/30/23 02:45 Sulfa (Sulfonamide Allergy Unknown RASH Verified 09/30/23 02:45 Antibiotics) Review of Systems 2 Review of Systems: Yes all other systems are reviewed and are negative PMFSH Past Medical History Medical History Migraine Breast cyst Angiomyolipoma of kidney High cholesterol HTN (hypertension) GI bleed Kidney stone Diverticulitis Surgical History Hx of tonsillectomy Hx of colectomy Hx of appendectomy Social History Social History Patient Tobacco Use Status: Never used Tobacco Smoked in Last 30 Days: No Use of substances other than those prescribed or required for medical reasons: No Advance Directives: Yes Advance Directives on File: Yes Advance Directives Date on File: 07/09/21 Do you have a plan to hurt others: No Plan Physical Exam 2 Vital Signs: Vital Signs: Last Vital Signs Temp 98.6 F 09/30/23 02:44 Pulse 98 09/30/23 02:44 Resp 16 09/30/23 02:44 BP 182/79 H 09/30/23 02:44 Pulse Ox 94 09/30/23 02:44 O2 Del Method Room Air 09/30/23 02:44 BMI result Body Mass Index 28.8 Extrem: Ankle/foot/toe images: 1. Mild tenderness no deformity no significant swelling 2. Mild tenderness no deformity no swell ing Medical Decision Making Medical Decision Making MDM Narrative: Patient with minor ankle sprain x-ray negative for fracture and patient is ambulatory Arturo wrap was applied advised to take Tylenol Independent Interpretation I performed an independent interpretation of an: Plain X-Ray Radiology Impression Discussion of test interpretation with radiology: I have reviewed the radiologist's reading. Discharge Plan Discharge Clinical Impression: Ankle sprain and strain Patient Disposition: Home, Self-Care Instructions: Ankle Sprain (ED) Additional Instructions: Arturo wrap for support Tylenol for pain X-rays negative for fracture Prescriptions: No Action losartan 50 mg tablet 1 tab PO DAILY metoprolol succinate 50 mg tablet extended release 24 hr 75 mg PO DAILY nortriptyline 25 mg capsule 1 cap PO BEDTIME lorazepam 0.5 mg tablet 1 tab PO DAILY simvastatin 20 mg tablet 1 tab PO BEDTIME omeprazole 20 mg capsule,delayed release(DR/EC) 1 cap PO DAILY@0630 fluticasone propionate 50 mcg/actuation spray,suspension 1 spray intranasal BID PRN (Reason: Allergy Symptoms) omega 9-kug-lcw-fish oil [Fish Oil] 1,000 mg (120 mg-180 mg) Capsule 1 cap PO DAILY multivitamin Tablet 1 tab PO DAILY amlodipine 10 mg tablet 10 mg PO DAILY pyridoxine (vitamin B6) 100 mg tablet 50 mg PO DAILY 90 Days Qty: 45 3RF Stand Alone Forms: Work/School Release Discharge Date/Time: 09/30/23 05:13 Print Language: Tajik
== END 2023-09-30 05:13 | disposition home or self-care (01) ==
PROVIDERS: Emergency Provider Internal Medicine; PCP Family Medicine
DX: S93.402A Sprain of unspecified ligament of left ankle, initial encounter (principal); S93.401A Sprain of unspecified ligament of right ankle, initial encounter; S96.912A Strain of unspecified muscle and tendon at ankle and foot level, left foot, initial encounter; S96.911A Strain of unspecified muscle and tendon at ankle and foot level, right foot, initial encounter; X50.1XXA Overexertion from prolonged static or awkward postures, initial encounter; Y93.89 Activity, other specified; Y92.019 Unspecified place in single-family (private) house as the place of occurrence of the external cause; Y99.9 Unspecified external cause status
CPT/HCPCS: 73600; 99283; 99284

== ENCOUNTER 2023-11-13 08:59 | Outpatient (REF) | payer MEDICARE, OTHER, SELFPAY ==
--- NOTE | ~2023-11-13 | US_ITS ---
EXAMINATION: US RETROPERITONEAL LIMITED (RENAL ONLY) CLINICAL INFORMATION: Personal history of urinary calculi. COMPARISON: Renal ultrasound 12/04/2022 and 06/04/2022. CT abdomen 12/13/2021. TECHNIQUE: Real-time imaging of the kidneys. Limited visualization due to bowel gas. FINDINGS: RIGHT KIDNEY: 10.0 x 4.0 x 4.4 cm (SAG x AP x TRV). Redemonstration of a 0.6 cm lateral upper pole cyst with benign features. There is no indication for follow-up imaging. No hydronephrosis. No renal calculi. Limited visualization. LEFT KIDNEY: 10.4 x 4.1 x 3.6 cm (SAG x AP x TRV). No obstructing renal calculi. Limited visualization. Redemonstration of 1.2 cm lower pole cyst with benign features. There is no indication for follow-up imaging. Possible left renal calyectasis versus parapelvic cysts. US/US renal BI IMPRESSION: 1. Possible left renal calyectasis versus parapelvic cysts. 2. No obstructing renal calculi. Limited visualization.
== END 2023-11-13 09:00 | disposition home or self-care (01) ==
LOC: HO.US 08:59
PROVIDERS: PCP Family Medicine; Visit Provider Urology
DX: N28.1 Cyst of kidney, acquired (principal); Z87.442 Personal history of urinary calculi
CPT/HCPCS: 76775

== ENCOUNTER 2023-12-16 09:53 | Outpatient (AMB) | payer MEDICARE, OTHER, SELFPAY ==
--- NOTE | 2023-12-16 09:56 | MHC.OFFVIS ---
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 Accompanied by: Self / Same As Patient Allergies abacavir Allergy (Unknown, Verified 12/16/23 20:32) Unknown dicloxacillin [Dicloxacillin] Allergy (Unknown, Verified 12/16/23 20:32) UNKNOWN Sulfa (Sulfonamide Antibiotics) Allergy (Unknown, Verified 12/16/23 20:32) RASH Medication List - Last Reconciled 12/16/23 by BEV Coleman- amlodipine 10 mg PO DAILY fluticasone propionate 50 mcg/actuation 1 spray intranasal BID PRN lorazepam 1 tab PO DAILY losartan 1 tab PO DAILY metoprolol succinate ER 75 mg PO DAILY multivitamin 1 tab PO DAILY nortriptyline 1 cap PO BEDTIME omega 5-tua-ham-fish oil 1,000 mg (120 mg-180 mg) (Fish Oil) 1 cap PO DAILY omeprazole 1 cap PO DAILY@0630 pyridoxine (vitamin B6) 50 mg (1/2 x 100 mg) PO DAILY 90 days simvastatin 1 tab PO BEDTIME HPI Comments Details: Lidia is a pleasant 73-year-old female patient of Dr. Almaraz. She has a past medical history of migraines, breast cysts, angiolipoma of kidney, hypercholesteremia, hypertension, nephrolithiasis, and diverticulitis. She presents to the office today for follow-up of her nephrolithiasis and renal cyst. In discussion with the patient today she reports since her last office visit here approximately 1 year ago she has been doing and feeling well. She currently denies any bothersome urinary issues or concerns. Recent renal imaging results reviewed with the patient today. Right kidney with redemonstration of 0.6 cm lateral upper pole cyst with benign features. There is no indication for follow-up imaging per radiology report. No hydronephrosis or renal calculi noted on the right side. Left side with nonobstructing renal calculi. Redemonstration of 1.2 cm lower pole cyst with benign features. Per radiology report no follow-up imaging is recommended. When asked she denies urinary urgency, urinary frequency, incontinence, nocturia, hematuria, dysuria, foul smelling urine, changes to urinary stream, flank pain, fever, and or chills. She is happy with her current voiding parameters. When asked she reports compliance with vitamin B6 as prescribed. She reports she had been drinking approximately 4-6 bottles of water a day however has noted decrease in her fluid intake daily. She otherwise offers no other bothersome urinary issues or concerns. [facility] Medical History Migraine Breast cyst Angiomyolipoma of kidney High cholesterol HTN (hypertension) GI bleed Kidney stone Diverticulitis Surgical History Hx of tonsillectomy Hx of colectomy Hx of appendectomy Social History Patient Tobacco Use Status: Never used Tobacco Advance Directives Date on File: 07/09/21 Review of Systems Const All systems reviewed & are unremarkable except as noted in HPI and below Reports as per HPI Eyes Reports no additional complaints ENT Reports no additional complaints Card Reports no additional complaints Resp Reports no additional complaints GI Reports no additional complaints Reports as per HPI Musc Reports no additional complaints Neuro Reports no additional complaints Psych Reports no additional complaints Endo Reports no additional complaints Brody/Lymph Reports no additional complaints Aller/Immun Reports no additional complaints Physical Exam Const General: cooperative, healthy appearing, comfortable, no acute distress, well developed, alert and awake Orientation/consciousness: patient oriented x3 Limitations: no limitations HEENT Head: Yes normal to inspection and Yes normocephalic Ears: hearing grossly normal bilaterally Eyes General: appearance normal, both eyes and all related structures Neck Neck: Yes normal visual inspection and Yes trachea midline Chest Chest palpation & inspection: normal inspection of the chest Resp Effort & Inspection: normal respiratory effort and able to speak in complete sentences Cardio Rate: regular rate General: Yes no CVA tenderness Back/Spine/Pelvis Back: no CVA tenderness Neuro General: patient oriented x3 and gait normal Extrem General: Yes normal to inspection Psych Appearance: grossly normal and well kempt Mental Status: mental status grossly normal Speech and movement: Normal speech and movement present and Clear speech present Affect: normal affect Attitude: cooperative Thought process: Normal thought process present Thought content: Normal thought content present Insight: Fair insight present (Psych) Judgement: Fair judgement present (Psych) Results AMB Urinalysis, Automated UA Leukoctes 0 Vijay/uL Last Edit by Thomas Alvarez on 12/16/23 10:05 UA Nitrite Last Edit by Thomas Alvarez on 12/16/23 10:05 UA Urobilinogen 0.2 mg/dL Last Edit by Thomas Alvarez on 12/16/23 10:05 UA Protein 0 mg/dL Last Edit by [employer] Alvarez on 12/16/23 10:05 UA pH 6.0 Last Edit by [employer] Alvarez on 12/16/23 10:05 UA Blood 0 [place]/uL Last Edit by [employer] Yopim[employer]ro on 12/16/23 10:05 UA Specific [place] 1.010 Last Edit by [employer] Alvarez on 12/16/23 10:05 UA Ketone Negative Last Edit by [employer] Alvarez on 12/16/23 10:05 UA Bilirubin 0 mg/dL Last Edit by [employer] Alvarez on 12/16/23 10:05 UA Glucose 0 mg/dL Last Edit by [employer] Alvarez on 12/16/23 10:05 Results Reviewed Results Reviewed: Laboratory Last Values Urine pH (Auto) 6.0 12/16/23 09:59 Specific [place] (Auto) 1.010 12/16/23 09:59 Urine Protein (Auto) 0 mg/dL 12/16/23 09:59 Glucose (UA)(Auto) 0 mg/dL 12/16/23 09:59 Urine Ketones (Auto) Negative 12/16/23 09:59 Urine Blood (Auto) 0 [place]/uL 12/16/23 09:59 Urine Bilirubin (Auto) 0 mg/dL 12/16/23 09:59 Urine Urobilinogen (Auto) 0.2 mg/dL 12/16/23 09:59 Leukocyte Esterase (Auto) 0 Vijay/uL 12/16/23 09:59 Date of Service: 11/13/23 EXAMINATION: US RETROPERITONEAL LIMITED (RENAL ONLY) FINDINGS: RIGHT KIDNEY: 10.0 x 4.0 x 4.4 cm (SAG x AP x TRV). Redemonstration of a 0.6 cm lateral upper pole cyst with benign features. There is no indication for follow-up imaging. No hydronephrosis. No renal calculi. Limited visualization. LEFT KIDNEY: 10.4 x 4.1 x 3.6 cm (SAG x AP x TRV). No obstructing renal calculi. Limited visualization. Redemonstration of 1.2 cm lower pole cyst with benign features. There is no indication for follow-up imaging. Possible left renal calyectasis versus parapelvic cysts. IMPRESSION: 1. Possible left renal calyectasis versus parapelvic cysts. 2. No obstructing renal calculi. Limited visualization. Assessment & Plan Assessment & Plan (1) Renal cysts, acquired, bilateral: Code(s): N28.1 - Cyst of kidney, acquired Category: Medical (2) Kidney stone: Code(s): N20.0 - Calculus of kidney Category: Medical Plan In office urinalysis results reviewed with the patient today; as noted above. Recent renal imaging results reviewed with the patient today; as noted above. Discussed importance of adequate hydration relation to nephrolithiasis as well as overall health and well-being. Continue vitamin B6 as discussed and prescribed. Continue adding 1 oz of lemon juice to water daily. Patient currently denies any bothersome urinary issues. She reports be happy with current voiding parameters. Will obtain renal ultrasound in 1 year. Follow-up in 1 year with imaging to be completed prior; or sooner with any issues, concerns, and or questions. Orders: Orders AMB Urinalysis Automated Today Z13.9 - Encounter for screening, unspecified US renal BI 1 Year N20.0 - Calculus of kidney Medications: Refilled pyridoxine (vitamin B6) 50 mg (1/2 x 100 mg) PO DAILY 90 days 45 tabs 3RF N13.2 - Hydronephrosis with renal and ureteral calculous obstruction Patient Instructions: The patient had an opportunity to ask questions regarding the treatment plan. All questions were answered. Physical exam, labs, and imaging were discussed and reviewed in detail. As well as risks, benefits, and discussion of treatment choices. No major barriers to understanding were identified. The patient expressed understanding and agreement with the above treatment plan. The patient was made aware they should contact our office by phone for worsening of their current condition, the appearance of new symptoms, or with any questions or concerns. Compliance is encouraged with any medications and follow up testing that is ordered. It is a privilege to be allowed the opportunity to participate in? your urological care.? Again, if you have any questions or concerns If you have any questions or concerns please do not hesitate to contact me. The office is [phone]. This note is constructed using voice recognition software. While every effort has been made to ensure accuracy health specialist errors may have been included. Yours sincerely, VAZQUEZ Coleman Coding Level of Care Code Est Pt Level 3 (26626) Complex EM visit Add On G2211 Diagnoses Renal cysts, acquired, bilateral N28.1 Kidney stone N20.0
== END 2023-12-16 10:19 | disposition home or self-care (01) ==
PROVIDERS: PCP Family Medicine; Visit Provider Nurse Practitioner Family
DX: N28.1 Cyst of kidney, acquired (principal); N20.0 Calculus of kidney; Z13.9 Encounter for screening, unspecified
CPT/HCPCS: 99213; G2211

== ENCOUNTER → 2023-12-16 09:53 | Outpatient (BNVA) | payer MEDICARE, OTHER, SELFPAY | PROVIDERS: PCP Family Medicine; Visit Provider Nurse Practitioner Family | DX: N20.0 Calculus of kidney (principal); N28.1 Cyst of kidney, acquired | CPT/HCPCS: 81003; 99212 ==

== ENCOUNTER 2024-03-09 13:54 | Outpatient (REF) | payer MEDICARE, OTHER, SELFPAY | END 2024-03-09 13:55 | disposition home or self-care (01) | LOC: HO.US 13:54 | PROVIDERS: PCP Family Medicine | DX: N20.0 Calculus of kidney (principal); Z87.442 Personal history of urinary calculi | CPT/HCPCS: 76775 ==

== ENCOUNTER 2024-03-16 13:22 | Outpatient (AMB) | payer MEDICARE, OTHER, SELFPAY ==
--- NOTE | 2024-03-16 13:48 | A.OFFVIS_ITS ---
Intake Visit Reasons: 3m/US(pending 03/09) Intake Note: Patient presents today for follow up on kidney stones, renal cyst, and ultrasound results Imaging completed: 03/09/24 Urology Medications: Vitamin B6 Blood Thinner: none Manager Recruitment Required: No Accompanied by: Self / Same As Patient Allergies abacavir Allergy (Unknown, Verified 03/16/24 14:14) Unknown dicloxacillin [Dicloxacillin] Allergy (Unknown, Verified 03/16/24 14:14) UNKNOWN Sulfa (Sulfonamide Antibiotics) Allergy (Unknown, Verified 03/16/24 14:14) RASH Medication List - Last Reconciled 03/16/24 by ASTER Coleman amlodipine 10 mg PO DAILY fluticasone propionate 50 mcg/actuation 1 spray intranasal BID PRN lorazepam 1 tab PO DAILY losartan 1 tab PO DAILY metoprolol succinate ER 75 mg PO DAILY multivitamin 1 tab PO DAILY nortriptyline 1 cap PO BEDTIME omega 3-gjk-yqz-fish oil 1,000 (120-180) mg (Fish Oil) 1 cap PO DAILY omeprazole 1 cap PO DAILY@0630 pyridoxine (vitamin B6) 50 mg (1/2 x 100 mg) PO DAILY 90 days simvastatin 1 tab PO BEDTIME HPI Comments Details: Lidia is a pleasant 73-year-old female patient of Dr. Almaraz. She has a past medical history of migraines, breast cysts, angiolipoma of kidney, hypercholesteremia, hypertension, nephrolithiasis, and diverticulitis. She presents to the office today for follow-up of her nephrolithiasis and renal cyst. In discussion with the patient today she reports to be doing and feeling well. She reports following up with ENT for ongoing right ear issues she has been experiencing. She currently denies any bothersome urinary issues or concerns. Recent renal imaging results reviewed with the patient today... When asked she denies urinary urgency, urinary frequency, incontinence, nocturia, hematuria, dysuria, foul smelling urine, changes to urinary stream, flank pain, fever, and or chills. She is happy with her current voiding parameters. When asked she reports compliance with vitamin B6 as prescribed in attempts to drink plenty of water daily. In office urinalysis results reviewed with the patient today. She otherwise offers no other bothersome urinary issues or concerns. [facility] Medical History Migraine Breast cyst Angiomyolipoma of kidney High cholesterol HTN (hypertension) GI bleed Kidney stone Diverticulitis Surgical History Hx of tonsillectomy Hx of colectomy Hx of appendectomy Social History Patient Tobacco Use Status: Never used Tobacco Advance Directives Date on File: 07/09/21 Review of Systems Const All systems reviewed & are unremarkable except as noted in HPI and below Reports as per HPI Eyes Reports no additional complaints ENT Reports no additional complaints Card Reports no additional complaints Resp Reports no additional complaints GI Reports no additional complaints Reports as per HPI Musc Reports no additional complaints Neuro Reports no additional complaints Psych Reports no additional complaints Endo Reports no additional complaints Brody/Lymph Reports no additional complaints Aller/Immun Reports no additional complaints Physical Exam Const General: cooperative, healthy appearing, comfortable, no acute distress, well developed, alert and awake Orientation/consciousness: patient oriented x3 Limitations: no limitations HEENT Head: Yes normal to inspection and Yes normocephalic Ears: hearing grossly normal bilaterally Eyes General: appearance normal, both eyes and all related structures Neck Neck: Yes normal visual inspection and Yes trachea midline Chest Chest palpation & inspection: normal inspection of the chest Resp Effort & Inspection: normal respiratory effort and able to speak in complete sentences Cardio Rate: regular rate General: Yes no CVA tenderness Back/Spine/Pelvis Back: no CVA tenderness Neuro General: patient oriented x3 and gait normal Extrem General: Yes normal to inspection Psych Appearance: grossly normal and well kempt Mental Status: mental status grossly normal Speech and movement: Normal speech and movement present and Clear speech present Affect: normal affect Attitude: cooperative Thought process: Normal thought process present Thought content: Normal thought content present Insight: Fair insight present (Psych) Judgement: Fair judgement present (Psych) Results AMB Urinalysis, Automated UA Leukoctes 70 Vijay/uL Last Edit by [employer] on 03/16/24 14:00 UA Nitrite Last Edit by F[employer]y Asantaepedro on 03/16/24 14:00 UA Urobilinogen 0.2 mg/dL Last Edit by Fisione Asantaepedro on 03/16/24 14:00 UA Protein 0 mg/dL Last Edit by [employer] on 03/16/24 14:00 UA pH 6.0 Last Edit by [employer] on 03/16/24 14:00 UA Blood 0 [place]/uL Last Edit by [employer] on 03/16/24 14:00 UA Specific [place] 1.005 Last Edit by [employer] on 03/16/24 14:00 UA Ketone Last Edit by [employer] on 03/16/24 14:00 UA Bilirubin 0 mg/dL Last Edit by [employer] on 03/16/24 14:00 UA Glucose 0 mg/dL Last Edit by [employer] on 03/16/24 14:00 Results Reviewed Results Reviewed: Laboratory Last Values Urine pH (Auto) 6.0 03/16/24 13:59 Specific [place] (Auto) 1.005 03/16/24 13:59 Urine Protein (Auto) 0 mg/dL 03/16/24 13:59 Glucose (UA)(Auto) 0 mg/dL 03/16/24 13:59 Urine Blood (Auto) 0 [place]/uL 03/16/24 13:59 Urine Bilirubin (Auto) 0 mg/dL 03/16/24 13:59 Urine Urobilinogen (Auto) 0.2 mg/dL 03/16/24 13:59 Leukocyte Esterase (Auto) 70 Vijay/uL 03/16/24 13:59 Assessment & Plan Assessment & Plan (1) Renal cysts, acquired, bilateral: Code(s): N28.1 - Cyst of kidney, acquired Category: Medical (2) Kidney stone: Code(s): N20.0 - Calculus of kidney Category: Medical Plan In office urinalysis results reviewed with the patient today; as noted above. Recent renal imaging results reviewed with the patient today; as noted above. Discussed importance of adequate hydration relation to nephrolithiasis as well as overall health and well-being. Continue vitamin B6 as discussed and prescribed. Continue adding 1 oz of lemon juice to water daily. Patient currently denies any bothersome urinary issues. She reports be happy with current voiding parameters. Will obtain renal ultrasound in 1 year. Follow-up in 1 year with imaging to be completed prior; or sooner with any issues, concerns, and or questions. Orders: Orders US renal BI 1 Year N20.0 - Calculus of kidney AMB Urinalysis Automated Today Z13.9 - Encounter for screening, unspecified Patient Instructions: The patient had an opportunity to ask questions regarding the treatment plan. All questions were answered. Physical exam, labs, and imaging were discussed and reviewed in detail. As well as risks, benefits, and discussion of treatment choices. No major barriers to understanding were identified. The patient expressed understanding and agreement with the above treatment plan. The patient was made aware they should contact our office by phone for worsening of their current condition, the appearance of new symptoms, or with any questions or concerns. Compliance is encouraged with any medications and follow up testing that is ordered. It is a privilege to be allowed the opportunity to participate in? your urological care.? Again, if you have any questions or concerns If you have any questions or concerns please do not hesitate to contact me. The office is [phone]. This note is constructed using voice recognition software. While every effort has been made to ensure accuracy cleaning manager errors may have been included. Yours sincerely, VAZQUEZ Coleman Coding Level of Care Code Est Pt Level 3 (83041) Complex EM visit Add On G2211 Diagnoses Renal cysts, acquired, bilateral N28.1 Kidney stone N20.0
--- OUTSIDE RECORDS SUMMARY | 2024-03-23 14:24 | XMS_ITS | Continuity of Care Document ---
Author Organization [facility] Address [address] [place] [address]- [facility] Name Relationship Address Phone YESI CHRISTINA Personal Relationship Unknown Unav ailable SANFORD, YESI Personal Relationship Unknown Unav ailable SANFORD, YESI Personal Relationship Unknown Unav ailable SANFORD, YESI Personal Relationship Unknown Unav ailable SANFORD, YESI Personal Relationship Unknown Unav ailable SANFORD, YESI Personal Relationship Unknown Unav ailable SANFORD, CRUZ P Personal Relationship Unknown U navailable SANFORD, YESI Personal Relationship Unknown Unav ailable SANFORD, YESI Personal Relationship Unknown Unav ailable SANFORD, YESI Personal Relationship Unknown Unav ailable SANFORD, YESI Personal Relationship Unknown Unav ailable SANFORD, NIDA Personal Relationship Unknown Un available SANFORD, YESI Personal Relationship Unknown Unav ailable SANFORD, YESI Personal Relationship Unknown Unav ailable SANFORD, CRUZ Personal Relationship Unknown Ada vailable SANFORD, YESI Personal Relationship Unknown Unav ailable SANFORD, YESI Personal Relationship Unknown Unav ailable SANFORD, YESI Personal Relationship Unknown Unav ailable SANFORD, YESI Personal Relationship Unknown Unav ailable SANFORD, YESI Personal Relationship Unknown Unav ailable SANFORD, YESI Personal Relationship Unknown Unav ailable SANFORD, YESI Personal Relationship Unknown Unav ailable SANFORD, YESI spouse Unknown Unavailable SANFORD, YESI Personal Relationship Unknown Unav ailable SANFORD, YESI Personal Relationship Unknown Unav ailable SANFORD, YESI Personal Relationship Unknown Unav ailable SANFORD, YESI Personal Relationship Unknown Unav ailable Care Team Providers Care Dean Of Faculty Name Role Phone Karen Almaraz MD Primary Care Physician [phone] Encounter [facility] NBR [id number] Date(s): 02/04/24 - 03/05/24 [facility] [address] [place] [address]- Attending Physician: Admtr, Ar8 Admitting Physician: Admtr, Ar8 Referring Physician: Yonatan Singleton Encounter Type: Triage Allergies, Adverse Reactions, Alerts Substance Criticality Severity Reaction Reaction Severity Status dicloxacillin rash dyspnea Active tamsulosin dizziness vomiting Active sulfa drugs full body rash Act live Immunizations Given and Recorded Vaccine Date Status Refusal Reason influenza virus vaccine, inactivated 01/23/24 Mark rded influenza virus vaccine, inactivated 01/08/23 Mark rded influenza virus vaccine, inactivated 01/26/22 Mark rded influenza virus vaccine, inactivated 1 01/12/21 Gi nigel influenza virus vaccine, inactivated 03/06/20 Mark rded influenza virus vaccine, inactivated 2 03/05/19 Gi nigel influenza virus vaccine, inactivated 3 02/27/18 Gi nigel influenza virus vaccine, inactivated 01/31/16 Give n influenza virus vaccine, inactivated 01/11/15 Give n influenza virus vaccine, inactivated 01/12/14 Give n influenza virus vaccine, inactivated 4 01/05/13 Gi nigel influenza virus vaccine, inactivated 5 01/01/12 Gi nigel influenza virus vaccine, inactivated 01/11/10 Give n SARS-CoV-2(COVID-19)mRNA-LNP vac([id number]) 12/22/23 Recorded SARS-CoV-2(COVID-19)mRNA-LNP vac([id number]) 01/14/23 Recorded [id number] 12y+ bivalent booster vax 02/17/22 Recorded SARS-CoV-2 mRNA ([id number]) vax 08/01/21 Recorded SARS-CoV-2 (COVID-19) mRNA BNT-162b2 vac 05/16/20 Recorded SARS-CoV-2 (COVID-19) mRNA BNT-162b2 vac 04/25/20 Recorded Influenza Virus Vaccine (oldterm) 03/05/20 Recorde d Influenza Virus Vaccine (oldterm) 6 02/22/08 Given Afluria (oldterm) 7 02/12/17 Given pneumococcal 23-valent vaccine 08/07/16 Given pneumococcal 13-valent vaccine 07/19/15 Given Zoster Vaccine Live 8 01/06/14 Given tetanus/diphtheria/pertussis, acel(Tdap) 07/10/11 Given influ virus vac, H1N1, inactive(oldterm) 01/09/11 Given tetanus-diphtheria toxoids (Td) 04/14/02 Given 1Result Comment: [facility]# [id number] 2Result Comment: [facility]# [id number] 3Result Comment: [02/27/2018] [facility]# [id number] 4Admin Note: Amy 5Admin Note: VIS Given FLULAVAL 6Admin Note: at work 7Result Comment: [02/12/2017] [facility] [id number] 8Result Comment: [01/12/2014] [facility] Medications amLODIPine 10 mg oral tablet 1 tablet, By Mouth, Daily, # 90 tablet, 3 Refills, Maintenance, 02/10/23 4:44:00 PM EDT, [facility], 160.02, cm, 02/04/23 11:02:00 EDT, Height, 71.9, kg, 06/14/21 12:41:00 EST, Dry Weight Start Date: 02/10/23 Status: Ordered Quantity: 90.0 Unit: tablet Repeat number: 4 Azithromycin 5 Day Dose Pack 250 mg oral tablet 1 pack/packet, By Mouth, Once, # 1 pack/packet, 0 Refills, Soft Stop, 02/04/24 11:21:00 AM EDT, Tablet, [facility], Partial fill upon patient request if the prescription is for a schedule II opioid drug., 155, cm, 02/04/24 11:13:00 EDT, Height, 76, kg, 10/30/23 9:14:00 EDT, Dry Weight Start Date: 02/04/24 Status: Ordered Quantity: 1.0 Unit: pack/packet Repeat number: 1 calcipotriene 0.005% topical solution 1 application, Topically, 2 times a day, # 60 mL, 0 Refills, Maintenance, 06/04/21 8:43:00 AM EST, Solution, Partial fill upon patient request if the prescription is for a schedule II opioid drug. Start Date: 06/04/21 Status: Ordered Quantity: 60.0 Unit: mL Repeat number: 1 calcium calcium, Refills 0, Maintenance, 06/28/20 11:06:00 AM EDT, Supply Start Date: 06/28/20 Status: Ordered Repeat number: 1 clobetasol 0.05% topical cream 1 application, Topically, 2 times a day, apply a thin film - 2-3 times a week as needed, # 30 Gm, 2Refills, Maintenance, 01/01/22 4:43:00 PM EDT, Cream, [facility], please sub ointment if cheaper, 1 application Topically 2 times a day,Instr:apply a thin film - 2-3 times a week as needed, 160.02, cm, 01/01/22 16:25:00 EDT, Height, 71.9, kg, 06/14/21 12:41:00 EST, Dry Weight Start Date: 01/01/22 Status: Ordered Quantity: 30.0 Unit: g Repeat number: 3 clobetasol 0.05% topical ointment See Instructions, n Topically1-2 rimes per week as needed apply a thin film, # 45 Gm, 1 Refills, Maintenance, 08/12/23 10:45:00 AM EDT, Ointment, [facility], Partial fill upon patientrequest if the prescription is for a schedule II opioid drug., n Topically1-2 rimes per week as needed ; apply a thin film, 155, cm, 08/12/23 10:21:00 EDT, Height Start Date: 08/12/23 Status: Ordered Quantity: 45.0 Unit: g Repeat number: 2 Elastic compression stockings 20-30 mm Hg Elastic compression stockings 20-30 mm Hg, See Instructions, # 2 pair, Refills 1, Tot. 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, 155, cm, 02/04/24 11:13:00 EDT, Height, 76, kg, 10/30/23 9:14:00 EDT, Dry Weight Start Date: 03/03/24 Status: Ordered Quantity: 28.0 Unit: tablet Repeat number: 1 losartan 50 mg oral tablet See Instructions, TAKE ONE TABLET BY MOUTH EVERY DAY, # 90 tablet, 3 Refills, 09/25/23 8:40:00 AM EDT, [facility], 155, cm, 09/25/23 8:35:00 EDT, Height Start Date: 09/25/23 Status: Ordered Quantity: 90.0 Unit: tablet Repeat number: 4 Metoprolol Succinate ER 50 mg oral tablet, extended release See Instructions, TAKE 1 & 1/2 TABLETS BY MOUTH DAILY., # 135 tablet, 3 Refills, 09/25/23 8:40:00 AM EDT, [facility], 155, cm, 09/25/23 8:35:00 EDT, Height Start Date: 09/25/23 Status: Ordered Quantity: 135.0 Unit: tablet Repeat number: 4 nortriptyline 25 mg oral capsule 1, capsule, By Mouth, Daily, # 90 capsule, Refills 3, Tot. Refills 3, Maintenance, 03/27/23 9:27:00AM EST, Route to Pharmacy Electronically, [facility], 160.02, cm, 03/27/23 9:10:00EST, Height, 71.9, kg, 06/14/21 12:41:00 EST, Dry Weight Start Date: 03/27/23 Status: Ordered Quantity: 90.0 Unit: capsule Repeat number: 4 omeprazole 20 mg oral enteric coated capsule 1 capsule, By Mouth, Daily, for 90 days, # 90 capsule, 3 Refills, Physician Stop 04/15/24 2:09:00 PM EST, 04/21/23 2:09:00 PM EST, [facility], 160.02, cm, 03/27/23 9:10:00 EST, Height, 71.9, kg, 06/14/21 12:41:00 EST, Dry Weight Start Date: 04/21/23 Stop Date: 04/15/24 Status: Ordered Quantity: 90.0 Unit: capsule Repeat number: 4 risedronate 150 mg oral tablet 1 tablet = 150 mg, By Mouth, Every 30 days, with 6-8 oz plain water, at least 30 minutes before first food, beverage, or medication of the day, # 1 tablet, 12 Refills, Maintenance, 08/12/23 10:41:00 AM EDT, Tablet, [facility], Partial fill upon patient request if the prescription isfor a schedule II opioid drug., 155, cm, 08/12/23 10:21:00 EDT, Height Start Date: 08/12/23 Status: Ordered Quantity: 1.0 Unit: tablet Repeat number: 13 simvastatin 20 mg oral tablet 1, tablet, By Mouth, Daily at bedtime, # 90 tablet, Refills 3, Maintenance, 02/19/23 1:10:00 PM EST,Route to Pharmacy Electronically, [facility], 160.02, cm, 02/04/23 11:02:00 EDT, Height, 71.9, kg, 06/14/21 12:41:00 EST, Dry Weight Start Date: 02/19/23 Status: Ordered Quantity: 90.0 Unit: tablet Repeat number: 1 Tylenol Caplet Extra Strength = 500 mg, By Mouth, 2 times a day, 0 Refills, Maintenance, 06/04/21 8:40:00 AM EST, Partial fill upon patient request if the prescription is for a schedule II opioid drug. Start Date: 06/04/21 Status: Ordered Repeat number: 1 Vitamin B6 100 mg oral tablet 1 tablet = 100 mg, By Mouth, Daily, 0 Refills, Maintenance, 03/14/21 1:14:00 PM EST, Partial fill upon patient request if the prescription is for a schedule II opioid drug. Start Date: 03/14/21 Status: Ordered Repeat number: 1 Problem List Condition Confirmation Course Effective Dates Status H ealth Status Informant Acute upper GI bleed Confirmed Active Anxiety Confirmed Active Diverticulosis Confirmed Active Hypercholesterolemia Confirmed Active Hyperglycemia Confirmed Active Hypertension Confirmed Active Kidney stones Confirmed Active Menopause Confirmed Active Obese class I Confirmed Active Osteoporosis Confirmed Active Itching of vulva Confirmed Active Psoriasis Confirmed Active Vulvar irritation Confirmed Active Social History Social History Type Response Smoking Status Never (less than 100 in lifetime); Tobacco user in household: No entered on: 03/08/19 Sex Sex Representation Female (finding) Laboratory * Event Display: Non BH Lab Results Authored Date: * Event Display: Non BH Lab Results Authored Date: * Karen Almaraz MD: REVIEW Event Display: Non BH Lab Results Authored Date: Radiology * Event Display: Ultrasound Breast, Non-BH Authored Date: MG Breast Views * Event Display: MM Mammogram Authored Date: * Event Display: MM Mammogram Authored Date: * Event Display: MM Mammogram Authored Date: Patient Care team information Care Team Personnel Name: Karen Almaraz MD Position: [facility] Physician - Primary Care Member Role: PCP Address: [address] [place] [address] Telecom: Care Team Related Persons Name: YESI CHRISTINA Insurance Providers Guarantor name: CRUZ CHRISTINA Health Plan Information #: 1 Payer: MEDICARE PART B OUTPT Member Number: NA Policy Number: NA Group Number: NA Health Plan Information #: 2 Payer: FOR LIFE MCR A ONLY Member Number: NA Policy Number: NA Group Number: NA
--- OUTSIDE RECORDS SUMMARY | 2024-03-23 14:24 | XMS_ITS | Data Portability ---
Author Organization [place] [facility], Allergy Address [address] [address] Care Team Providers Care Wood Barker Name Role Phone DEANDRE TINAJERO Primary Care Provider DEANDRE TINAJERO Referring Provider Assessment Encounter Date Assessment Date Assessment LastModified by Organization Details LastModified Time 02/27/2024 02/27/2024 73 yo F with a history of allergies and migraines with several months of right sided ear blockage. There is a serous effusion on exam. No obstructive nasopharyngeal pathology on NPL. Will try a short course of steroids, risks reviewed. Also recommended Afrin for 3 days. If no improvement, will plan on ear tube at followup. [email or web address] Not available 03/01/2024 08:06:21 Plan of Treatment Reminders Order Date Submit Date Provider Last Modified By Organization Details Last Modified Time Details Appointments Hearing Test 2023 03:00P M Hearing Test Not available Not available Not available Establish ed 15 2023 03:30P M SHARRON SYKES MD Not available Not available Not available Lab None recorded. Referral None recorded. Procedures None recorded. Surgeries None recorded. Imaging None recorded. Medication Orders Medrol (Brice) 4 mg tablets in a dose pack 2023 024 [facility], [address] [facility], [place], [address], 02/27/2024 13:29:05 Patient TargetsNo targets recorded. Patient InstructionsNo instructions recorded. Reason for Referral None Reported. Problems Name Problem SNOMED Code Status Onset Date Resolution Date Notes Provider Name and Address Organization Details Recorded Time Bilateral disorder of Eustachian tubes 8999635215738 107 Active 2023 SHARRON SYKES MD [address] [facility], [address], [place], [address], [facility] - [facility] 4 13:16:06 Disorder of right Eustachian tube 6073461357845 103 Active 2023 SHARRON SYKES MD 100 [facility] [address], [place], [address], [facility] - [facility] 4 13:16:37 Chronic serous otitis media of right ear 740652588 Active 2023 SHARRON SYKES MD 100 [facility] [address], [place], [address], [place] - [facility] 13:16:56 Problem Notes None recorded. Procedures Surgical History Date Name Laterality Status Provider Name and Address Organization Details Recorded Time 024 Fiberoptic Nasopharyngoscopy completed SHARRON SYKES MD 100 [facility],[address], [address], [facility] - [facility] 03/01/2024 08:03:55 Removal of tonsils completed SHARRON SYKES MD 100 [facility],[address], [address], [facility] - [facility] 02/27/2024 13:07:57 Partial removal of colon completed SHARRON SYKES MD 100 [facility],[address], [address], [facility] - [facility] 02/27/2024 13:08:06 Dilation and curettage completed SHARRON SYKES MD 100 [facility],[address], [address], [facility] - [facility] 02/27/2024 13:08:24 Imaging Results None recorded. Procedure Notes None recorded. Medical Equipment None Reported. Medications Name Sig Start Date Stop Date Status Note LastModified by Organization Details LastModified Time losartan 50 mg tablet TAKE ONE TABLET BY MOUTH EVERY DAY active Not Available Not Available No t Available azithromyci n 250 mg tablet TAKE 2 TABLETS ON FIRST DAY , THEN 1 TABLET DAILY FOR 4 DAYS active Not Available Not Available No t Available benzonatate 200 mg capsule TAKE ONE CAPSULE BY MOUTH THREE TIMES A DAY FOR 10 DAYS active Not Available Not Available No t Available metoprolol succinate ER 50 mg tablet,exte nded release 24 hr TAKE 1 & 1/2 TABLETS BY MOUTH DAILY. active Not Available Not Available No t Available prednisone 20 mg tablet TAKE 1 TABLET BY MOUTH DAILY FOR 7 DAYS; WITH FOOD OR MILK. 02/26 completed Not Available Not Available Not Available nortriptyli ne 25 mg capsule TAKE ONE CAPSULE BY MOUTH EVERY DAY active Not Available Not Available No t Available ofloxacin 0.3 % ear drops INSTILL 5 DROPS INTO THE RIGHT EAR EVERY 12 HOURS FOR 7 DAYS 02/26 completed Not Available Not Available Not Available lorazepam 0.5 mg tablet TAKE ONE TABLET BY MOUTH EVERY DAY NEEDED FOR ANXIETY active Not Available Not Available No t Available amlodipine 10 mg tablet TAKE ONE TABLET BY MOUTH EVERY DAY active Not Available Not Available No t Available simvastatin 20 mg tablet TAKE ONE TABLET BY MOUTH AT BEDTIME active Not Available Not Available No t Available omeprazole 20 mg capsule,del ayed release TAKE ONE CAPSULE BY MOUTH EVERY DAY active Not Available Not Available No t Available pyridoxine (vitamin B6) 100 mg tablet TAKE ONE-HALF TABLET BY MOUTH DAILY. active Not Available Not Available No t Available clobetasol 0.05 % topical ointment APPLY A THIN FILM TOPICALLY 1 TO 2 TIMES PER WEEK NEEDED active Not Available Not Available No t Available methylpredn isolone 4 mg tablets in a dose pack TAKE DIRECTED active Not Available Not Available No t Available albuterol sulfate HFA 90 mcg/actuati on aerosol inhaler INHALE TWO PUFFS BY MOUTH EVERY 4 HOURS active Not Available Not Available No t Available fluticasone propionate 50 mcg/actuati on nasal spray,suspe nsion USE 1 SPRAY IN EACH NOSTRIL TWO TIMES A DAY active Not Available Not Available No t Available doxycycline hyclate 100 mg tablet TAKE ONE TABLET BY MOUTH TWICE A DAY FOR 10 DAYS; MAY TAKE WITH FOOD TO MINIMIZE ABDOMINAL DISCOMFOR T. active Not Available Not Available No t Available loratadine 10 mg tablet TAKE ONE TABLET BY MOUTH EVERY DAY active Not Available Not Available No t Available risedronate 150 mg tablet TAKE ONE TABLET BY MOUTH EVERY 30 DAYS WITH 6 TO 8 OZ OF PLAIN WATER AT LEAST 30 MINUTES BEFORE FIRST FOOD, BEVERAGE, OR OTHER MEDICATIO N OF active Not Available Not Available No t Available Paxlovid 300 mg (150 mg x 2)-100 mg tablets in a dose pack FOLLOW PACKAGE INSTRUCTI ONS TAKE 3 TABLETS TWO TIMES A DAY FOR 5 DAYS) active Not Available Not Available No t Available Vitals Date Recorded Body height Body mass index (BMI) Body weight Provider Name and Address Organization Details Last Updated DateTime 02/27/2024 162.56 cm 29.2 kg/m2 80520.7 g Jaja Mehta [place] - [facility] 02/27/2024 13:02:25 Social History None recorded. Functional Status None recorded. Mental Status None recorded. Family History Nothing Reported Notes:mother - htn, [place], hype rlipidemia father-lung cancer Medical History Condition Response Arthritis Y Anxiety Y Hyperlipidemia Y Hypertension Y Gynecological HistoryNo gynecological history recorded. Obstetrics History GPAL:G 0 P 0 0 0 0 Past Encounters Encounter ID Performer Location Encounter Start Date Encounter Closed Date Diagnosis/Indication Diagnosis SNOMED-CT Code Diagnosis ICD10 Code [id number] SHARRON SYKES MD [facility] [address] [address] 02/27/2024 12:50:26 02/27/2024 13:31:39 Disorder of right Eustachian tube [id number] 685378 H69.91 Chronic se analisa otitis media of right ear 625061956 H65.21 Health Concerns Section Related Observation LastModified by Organization Detai ls LastModified Time None Recorded Concern Status LastModified by Organization Details LastModified Time None Recorded Advance Directives Directive None Recorded Payers Encounter Date Sequence Insurance Name Policy Number Policy Shelton Covered Member ID Shelton Member ID Guarantor Name 02/27/2024 2 FOR LIFE () Lidiamichael Mcdonald [id number] Lidia Mcdonald 02/27/2024 1 [place] [employer] Lidiamichael Mcdonald [id number] Lidiamichael Mcdonald Notes Date Note Type Note Provider Name and Address Organization Details Recorded Time 02/27/2024 text/html 73 yo F with rig ht sided ear blockage. Symptoms started in September. In September antihistamine and nasal steroid helped. Patient with right ear decreased hearing and pressure for 3 months. Was treated with a Z-Brice 3 months ago and then more recently about 3 weeks ago. Abx helped for a while. Feels some pressure. No nosebleeds. Has some allergies. Mouth breather. On flonase and loratadine. On nortriptyline for migraines. SHARRON SYKES MD [address] [place] [address], [place], [address], [place] [facility] 03/01/2024 08:06:50 OBGyn Episode No OBEpisode recorded.
--- OUTSIDE RECORDS SUMMARY | 2024-03-23 14:24 | XMS_ITS | Continuity of Care Document ---
Author Organization [place] - [facility], [facility] Address [address] [place] [address] Care Team Providers Care Baton Twirler Name Role Phone DEANDRE TINAJERO Primary Care Provider DEANDRE TINAJERO Referring Provider [phone] Assessment Encounter Date Assessment Date Assessment LastModified [...] tablets in a dose pack 2023 024 [facility], [address] [facility], [place], [address], 02/27/2024 13:29:05 Patient TargetsNo targets recorded. Patient InstructionsNo instructions recorded. Reason for Referral None Reported. Problems Name Problem SNOMED Code Status Onset Date Resolution Date Notes Provider Name and Address Organization Details Recorded Time Bilateral disorder of Eustachian tubes 3988967691904 107 Active 2023 SHARRON SYKES MD [address] [facility] [address], [place], [address], [place] - [facility] [place] 4 13:16:06 Disorder of right Eustachian tube 0287406175478 103 Active 2023 SHARRON SYKES MD [address] [facility], [address], [place], [address], [place] - [facility] [place] 4 13:16:37 Chronic serous otitis media of right ear 059694879 Active 2023 SHARRON SYKES MD [address] [facility], [address], [place], [address], [place] - [facility] 4 13:16:56 Problem Notes None recorded. Procedures Surgical History Date Name Laterality Status Provider Name and Address Organization Details Recorded Time 024 Fiberoptic Nasopharyngoscopy completed SHARRON SYKES MD [address] [facility],[address], [address], [facility] - [facility] 03/01/2024 08:03:55 Removal of tonsils completed SHARRON SYKES MD [address] [facility],[address], [address], [facility] - [facility] 02/27/2024 13:07:57 Partial removal of colon completed SHARRON SYKES MD [address] [place] [address],[address], [address], [facility] - [facility] 02/27/2024 13:08:06 Dilation and curettage completed SHARRON SYKES MD [address] [facility],[address], [address], [facility] - [facility] 02/27/2024 13:08:24 Imaging Results None recorded. Procedure [...] Updated DateTime 02/27/2024 162.56 cm 29.2 kg/m2 14839.7 g Jaja Mehta [place] - [facility] 02/27/2024 13:02:25 Social History None recorded. Functional Status None recorded. Mental Status None recorded. Family History Nothing Reported Notes:mother - htn, [place], hype rlipidemia father-lung cancer Medical History Condition Response Hyperlipidemia Y Arthritis Y Anxiety Y Hypertension Y Gynecological HistoryNo gynecological history recorded. Obstetrics History GPAL:G 0 P 0 0 0 0 Past Encounters Encounter ID Performer Location Encounter Start Date Encounter Closed Date Diagnosis/Indication Diagnosis SNOMED-CT Code Diagnosis ICD10 Code [id number] SHARRON SYKES MD [facility] [address] [address] 02/27/2024 12:50:26 02/27/2024 13:31:39 Disorder of right Eustachian tube 9907742282 637742 H69.91 Chronic se analisa otitis media of right ear 892761073 H65.21 Health Concerns Section Related Observation LastModified by Organization Detai ls LastModified Time None Recorded Concern Status LastModified by Organization Details LastModified Time None Recorded Payers Encounter Date Sequence Insurance Name Policy Number Policy Shelton Covered Member ID Shelton Member ID Guarantor Name 02/27/2024 2 FOR LIFE () Lidiamichael Mcdonald [id number] Lidia Mcdonald 02/27/2024 1 [place]IC[place] [employer] Lidiamichael Mcdonald [id number] Lidia Mcdonald Notes Date Note Type Note Provider [...] On nortriptyline for migraines. SHARRON SYKES MD [address] [place] [address], [place], [address], [place] - [facility] 03/01/2024 08:06:50 OBGyn Episode No OBEpisode recorded.
--- OUTSIDE RECORDS SUMMARY | 2024-03-23 14:25 | XMS_ITS | Patient Health Record ---
Author Organization [facility] Address [address] [place] [address] Care Team Providers Care Assistant Administrator Name Role Phone Karen Almaraz MD Primary Care Provider Joe Carney Unavailable [phone] ALLERGIES Allergen (clinical drug ingredient) Drug/Non Drug Allergy documented on EMR Reaction Allergy Type Onset Date Status doxycycline Doxycycline Unknown Drug Allergy Act live Substance with sulfonamide structure and antibacterial mechanism of action (substance) Sulfa Antibiotics Unknown Drug Allergy Active REASON FOR REFERRAL No Information MEDICATIONS Medication SIG (Take, Route, Frequency, Duration) Notes Start Date End Date Status Fish Oil 1000 MG 1 capsule Orally Onc e a day for 30 day(s) Active Multivitamin - 1 tablet Orally Once a day for 30 day(s) Active Losartan Potassium 50 MG TAKE ONE TABLET BY MOUTH EVERY DAY Oral for 90 Active Vitamin B6 50 MG 1 tablet Orally Once a day Active amLODIPine Besylate 10 MG TAKE ONE TABLE T BY MOUTH EVERY DAY Oral for 90 Active Simvastatin 20 MG Oral for 90 Active Metoprolol Succinate ER 50 MG TAKE 1 & 1/2 TABLETS BY MOUTH DAILY. Oral Once a day Active Nortriptyline HCl 25 MG Oral for 30 Active Omeprazole 20 MG TAKE ONE CAPSULE BY MOUTH EVERY DAY Oral for 90 Active LORazepam 0.5 MG Oral for 28 A ctive Fluticasone Propionate 50 MCG/ACT 1 spray in each nostril Nasally Once a day/prn Active IMMUNIZATIONS Vaccine Route Administration Date Status Comme nts Influenza Unknown 07/13/2020 Administered SOCIAL HISTORY Tobacco Use: Social History Observation Description Date Details (start date - stop date) Never Smoker NA - NA Sex Assigned At : Social History Observation Description Sex Assigned At Unknown Tobacco Use/Smoking Question Answer Notes Patient is a nonsmoker Alcohol Screen Question Answer Notes Did you have a drink contain ing alcohol in the past year? Yes How often did you have a dri nk containing alcohol in the past year? Never (0 point) How many drinks did you have on a typical day when you were drinking in the past year? 1 or 2 drinks (0 point) Points 0 Interpretation Negative PROBLEMS Problem Type ICD Code Onset Dates Problem Status W/U Status Risk SNOMED Code Notes Problem History of adenomatous polyp of colon (Z86.010) Active confirmed 659445849 Problem Acute gastritis with hemorrhage, unspecified gastritis type (K29.01) Active confirmed 0535580 Problem Encounter for screening for malignant neoplasm of colon (Z12.11) Active confirmed 193010971 Problem Blood in stool (K92.1) Active confirmed 390930339 Problem Abdominal bloating (R14.0) Active confirmed 322557172 Problem Flatulence (R14.3) Active confirmed 845920359 Problem 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 History of gastrointestinal tract bypass (216413171) Problem Diverticulosis of large intestine without perforation or abscess without bleeding (K57.30) Active confirmed Diverticul ar disease of colon (811104608) Encounters Encounter Location Date Provider Diagnosis [facility] [address] [place] [address] 03/24/2023 Joe Agudelo [facility] [address] [place] [address] 09/10/2023 Joe Agudelo PLAN OF TREATMENT Future Test Test Name Order Date COLONOSCOPY 11/26/2022 Insurance Providers Payer Name Payer Address Payer Phone Subscriber Number Group Number Insured Name Patient Relationship to Insured Coverage Start Date Coverage End Date MEDICARE OF [place] [address] [place] [address] [phone] [id number] CRUZ CHRISTINA Self - patient is the insured FOR LIFE [address] [place] [address] [id number] CRUZ CHRISTINA Self - patient is the insured MEDICAL (GENERAL) HISTORY Medical History History ICD Code Kidney stones--cystoscopy with stent/ESW L Hypertension Hypercholesterolemia Denies AL,DM,CVA,Lung disease,renal dise ase Colon polyp-removed surgical ly in 2005--subsequent colonoscopies have been negative, with the most recent one in 07/2017. She had previously been followed in [place] by Dr. Nunez UGI bleed 04/2018 with EGD sh owing erosive gastritis and bx negative for H.pylori; the endoscopy also revealed a small to moderate sized hiatal hernia and a proximal gastric diverticulum; she did not require transfusions. Of note, she had been taking one 81 mg aspirin at that time. Migraines-uses Nortriptylene Surgical History Surgery Date(Month/Year) Tonsillectomy Breast cyst Appendectomy Right colectomy for a large benign polyp 2005
--- OUTSIDE RECORDS SUMMARY | 2024-03-23 14:25 | XMS_ITS ---
Author Organization [facility] Address [address] [place] [address] Care Team Providers Care Journeyman Powerhouse Operator Name Role Phone Karen Almaraz MD Primary Care Provider Unavailab Joe Palacios Unavailable [phone] REASON FOR VISIT Is having a vaginal biopsy tomorrow Encounters Encounter Location Date Provider Diagnosis [facility] [address] [place] [address] 03/24/2023 Joe Agudelo PLAN OF TREATMENT No Information
--- OUTSIDE RECORDS SUMMARY | 2024-03-23 14:25 | XMS_ITS ---
Author Organization [facility] Address [address] [place] [address] Care Team Providers Care Pediatric Orthodontist Name Role Phone Karen Almaraz MD Primary Care Provider Unavailab Joe Palacios Unavailable [phone] REASON FOR VISIT screening,hx polyps PROBLEMS Problem Type ICD Code Onset Dates Problem Status W/U Status Risk SNOMED Code Notes Problem 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 History of gastrointestinal tract bypass (027971385) Problem Diverticulosis of large intestine without perforation or abscess without bleeding (K57.30) Active confirmed Diverticul ar disease of colon (847392072) Encounters Encounter Location Date Provider Diagnosis [facility] Outpatient [address], [place] [phone] 02/17/2023 Joe Agudelo Encounter for scre ening colonoscopy Z12.11 ; Colon polyps K63.5 ; Intestinal bypass and anastomosis status Z98.0 ; Diverticulosis of large intestine without perforation or abscess without bleeding K57.30 and Other hemorrhoids K64.8 ASSESSMENTS Encounter Date Diagnosis Assessment Notes Treatment Notes Treatment Clinical Notes 02/17/2023 Encounter for screening colonoscopy (ICD-10 - Z12.11) 02/17/2023 Colon polyps (ICD-10 - K63.5) 02/17/2023 Intestinal bypass an d anastomosis status (ICD-10 - Z98.0) 02/17/2023 Diverticulosis of large intestine without perforation or abscess without bleeding (ICD-10 - K57.30) 02/17/2023 Other hemorrhoids (ICD-10 - K64.8) PLAN OF TREATMENT No Information
--- OUTSIDE RECORDS SUMMARY | 2024-03-23 14:25 | XMS_ITS ---
Author Organization [facility] Address [address] [place] [address] Care Team Providers Care Bakelite Molder Name Role Phone Karen Almaraz MD Primary Care Provider Adilene Davila Unavailable [phone] Allergies Allergen (clinical drug ingredient) Drug/Non Drug Allergy documented on EMR Reaction Allergy Type Onset Date Status sulfamethoxazole / trimethoprim Bactrim rash Drug Allergy Active Penicillin rash Drug Allergy Active REASON FOR VISIT Pcp-02/04/24, Painful nail(s) aggravated by shoes causing difficulty standing/walking, Ingrown Nail Medications Medication SIG (Take, Route, Frequency, Duration) Notes Start Date End Date Status Hydrocortisone Valerate Not-Taking Ketocon Not-Taking Desoximetasone 0.25 % TAKE 2 CAPSULES BY MOUTH 1 HR PRIOR TO APPT & THEN TAKE 2 CAPS EVERY 4 HOURS External for 30 Not-Taking Aspir-81 Not-Taking Protopic 0.1 % TAKE 2 CAPSULES BY MOUTH 1 HR PRIOR TO APPT & THEN TAKE 2 CAPS EVERY 4 HOURS External for 30 Not-Taking Vitamin B-6 Active Simvastatin Active Atenolol Not-Taking Omeprazole 20 MG 1 tablet Orally Once a day Active Nortriptyline HCl Ac tive Calcipotriene Active Amlodipine & Diet Manage Prod 10mg once a day Active Losartan Potassium 50 MG Orally Once a day Active Clobetasol Prop Crea-[place] Tar Active Metoprolol & Diet Manage Prod 75mg 1 x a day Active Compression Stockings 20-30mm Hg as directed Active Ciclopirox Olamine 0.77 % 1 application to affected area Externally Twice a day to effected areas on feet for 30 days Active Vitamin D3 Active Social History Tobacco Use: Social History Observation Description Date Details (start date - stop date) Never Smoker NA - NA Tobacco Use/Smoking Question Answer Notes Are you a: nonsmoker Additional Findings: Tobacco Non-User Current no n-smoker Tobacco use other than smoking: Question Answer Notes Are you an other tobacco user? No Vital Signs Height 5ft4in in 02/19/2024 Weight 170 lbs 02/19/2024 BMI 29.18 kg/m2 02/19/2024 Blood pressure systolic 138 mm Hg 02/19/20 24 Blood pressure diastolic 70 mm Hg 024 Procedures Procedure Date Ordered Date Performed Result Body Sit e 51501-WXAPUSK NAIL, 6 OR MORE 02/19/2024 N/A 54557-Waplowbf Plate 02/19/2024 N/A Encounters Encounter Location Date Provider Diagnosis [facility] [address] [place] [address] 02/19/2024 Adilene Van Onychomycosis B35.1 ; Pain in right toe(s) M79.674 ; Pain in left toe(s) M79.675 and Ingrown nail L60.0 Assessments Encounter Date Diagnosis (ICD Code) Assessment Notes Treatment Notes Treatment Clinical Notes Section Notes 02/19/2024 Onychomycosis (ICD-10 - B35.1) 02/19/2024 Pain in right toe(s) (ICD-10 - M79.674) 02/19/2024 Pain in left toe(s) (ICD-10 - M79.675) 02/19/2024 Ingrown nail (ICD-10 - L60.0) Plan Of Treatment Pending Test Test Name Order Date [id number] NAIL, 6 OR MORE 02/19/2024 23762-Gsltntqq Plate 02/19/2024 Next Appt Details Follow Up: 3 Months, Reason: Provider Name:Adilene gonzalez, 05/27/2024 09:15:00 AM, [address] [place], [address], Procedure Notes * Category Sub-Category Detail Notes Nail Avulsion Procedure A fine sterile e levator was placed between the eponychium, nail fold, and nail plate to separate the structures. A sterile nail splitter, and/or sterile 316 blade, was then used to longitudinally section the nail along its entire length through the eponychium to the area under the nail fold. The offending portion of nail was from the nail bed with a rolling action and then removed with a hemostat. No underlying bone was identified. There was minimal bleeding as hemostasis was achieved through the temporary use of either a digital tourniquet or the aforementioned local with epinephrine. A bacitracin sterile dressing was applied. Local wound aftercare instructions were discussed and dispensed. The patient was informed of both conservative and future surgical procedures to prevent recurrence. Tylenol or Motrin was recommended for pain or discomfort (87940) Anesthesia was accomplished TOP ICALLY with Lidocaine Hydrochloride Jelly 2 percent Location Medial nail border, TA Debride Nail 6-10 Nail debridement Performance o f this nail treatment by a nonprofessional would put this patients foot and overall health at risk. Therefore, debridement to affected nail(s) as described in exam was performed extensively to reduce/remove overall nail length, girth, thickness, subungual debris, and necrotic tissue, by manual and/or electrical means through the use of a nail nipper and/or dremel-type roll grinder, to a more viable healthy nail plate or bed tissue 6-10. Silver nitrate used for any petechial bleeding as necessary. Definitive antifungal treatment options have been reviewed and discussed with the patient. The patient chooses, no pharmaceutical tx - 14963 Progress Notes * Douglas MCDONALDOB: (73 yo F)Acc No.[id number]:02/19/2024 Progress Note Patient:?Lidia MCDONALD Provider:?Adilene Van DPM :1950???Age:73 Y???Sex:Female D ate:02/19/2024 Address:[address] [place] [id number] Pcp:Karen Almaraz MD Subjective: * Chief Complaints: * ???Pcp-02/04/24Painful nail( s) aggravated by shoes causing difficulty standing/walkingIngrown Nail * HPI: ???Painful Nails:?Pt States Last PCP Visit:?Date:?02/04/2024 * ROS:?General/Constitutional:?Nausea?denies.?Vomiting?denies.?Hunger Thirst?denies.?Loss appetite?denies.?Chills?denies.?Fatigue?denies.?Fever?denies.?Night Sweats?denies.?Unexplained weight loss?denies.?Unexplained weight gain?denies.?HEENTM:?Dentures?denies.?Dizziness?denies.?Glasses/contacts?admits.?Retinopathy?de nies.?Blurred/double vision?denies.?TMJ?denies.?Discharge/drainage?denies.?Implants?denies.?Sore throat?denies.?Dental implants?denies.?Hard of hearing ?denies.?Difficulty chewing/swallowing/speaking?denies.?Nose bleeds?denies.?Sore mouth?denies.?Respiratory:?On Oxygen?denies.?Pneumonia/pleurisy?denies.?Bronchitis?denies.?Emphysema?denies.?C oughing?denies.?Cough blood?denies.?Shortness of breath?denies.?Wheezing?denies.?Cardiovascular:?Pacemaker?denies.?MVP?denies.?WPW?denies.?CHF?denies.?Heart attack?denies.?Septal defect?denies.?Rapid beat?denies.?Chest pain ?denies.?Atrial Fib.?denies.?Murmur/Palpitations?denies.?Gastrointestinal:?Hemorrhoids?denies.?Stomach/Abdominal pain?denies.?Dark blood stool?denies.?Irritable bowel ?denies.?Constipation?denies.?Diarrhea?denies.?Hematology:?Swelling?denies.?Clots?denies.?Varicose Veins?denies.?Bruising?denies.?Bleeding problem?denies.?Genitourinary:?Blood urine?denies.?Frequent/Painfu/urination/bladder control?denies.?Kidney stones?denies.?Infection (UTI)?denies.?Nephropathy?denies.?sex trans dis (STD)?denies.?Prostate?denies.?Musculoskeletal:?Hammertoes?denies.?Bunions?admits.?Back Pain?denies.?Muscle Cramps/ Resting?denies.?Muscle cramps / walking?denies.?Generalized aches and pains?denies.?Weakness?denies.?Integ.:?Robison?denies.?Scars?denies.?Corns/calluses?denies.?Ingrown nails?admits.?Painful nails?admits.?Open Sores?denies.?Rashes?denies.?Neurologic:?Difficulty sleeping?denies.?Brain disorder?denies.?Numbness?denies.?Balance trouble?denies.?Confusion?denies.?Fainting/blackouts?denies.?Tingling?denies.?Tr emors?denies.? * Medical History:? * Surgical History:?polyp coleen millie May 2006appendectomy August 2005tonsillectomy reast Cysts colonoscopy D&C 06/2021 * Hospitalization/Major Diagno stic Procedure:?[facility] for diverticulitis 10/15/15[facility] for GI bleed 04/18/18-04/22/18[facility]- kidney stone 07/14/20[facility] ER- Stomach Flu 1 day 07/09/21 * Family History:?Mother: dece ased, kidney disease, diagnosed with Family history of arthritis, Unspecified heart disease.?Father: , foot problems, diagnosed with Other malignant neoplasm of unspecified site.? * Social History:?Tobacco Use:?Tobacco Use/Smoking?Are you a:?nonsmoker ?Additional Findings: Tobacco Non-User?Current non-smoker ?Tobacco use other than smoking?Are you an other tobacco user??No ???Miscellaneous:?Caffeine: yes, frequency: very occassionally. ?Children: yes, 1. ?Exercise: no. ?Marital status: . 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 * Medications:?TakingCompressi on Stockings 20-30mm Hg closed toe- knee high as directed Vitamin D3 Ciclopirox Olamine 0.77 % Cream 1 application to affected area Externally Twice a day to effected areas on feet Amlodipine & Diet Manage Prod 10mg once a day Calcipotriene Clobetasol Prop Crea-[place] Tar Losartan Potassium 50 MG Tablet Orally Once a day Metoprolol & Diet Manage Prod 75mg 1 x a day Nortriptyline HCl Omeprazole 20 MG Capsule Delayed Release 1 tablet Orally Once a day Simvastatin Vitamin B-6 Taking Compression Stockings 20-30mm Hg closed toe- knee high as directed Taking Vitamin D3 Taking Ciclopirox Olamine 0.77 % Cream 1 application to affected area Externally Twice a day to effected areas on feet Taking Amlodipine & Diet Manage Prod 10mg once a day Taking Calcipotriene Taking Clobetasol Prop Crea-[place] Tar Taking Losartan Potassium 50 MG Tablet Orally Once a day Taking Metoprolol & Diet Manage Prod 75mg 1 x a day Taking Nortriptyline HCl Taking Omeprazole 20 MG Capsule Delayed Release 1 tablet Orally Once a day Taking Simvastatin Taking Vitamin B-6 Not-Taking/PRNAtenolol Aspir-81 Ketocon Hydrocortisone Valerate Desoximetasone 0.25 % Ointment TAKE 2 CAPSULES BY MOUTH 1 HR PRIOR TO APPT & THEN TAKE 2 CAPS EVERY 4 HOURS External Protopic 0.1 % Ointment TAKE 2 CAPSULES BY MOUTH 1 HR PRIOR TO APPT & THEN TAKE 2 CAPS EVERY 4 HOURS External Medication List reviewed and reconciled with the patientNot-Taking/PRN Atenolol Not-Taking/PRN Aspir-81 Not-Taking/PRN Ketocon Not-Taking/PRN Hydrocortisone Valerate Not-Taking/PRN Desoximetasone 0.25 % Ointment TAKE 2 CAPSULES BY MOUTH 1 HR PRIOR TO APPT & THEN TAKE 2 CAPS EVERY 4 HOURS External Not-Taking/PRN Protopic 0.1 % Ointment TAKE 2 CAPSULES BY MOUTH 1 HR PRIOR TO APPT & THEN TAKE 2 CAPS EVERY 4 HOURS External Medication List reviewed and reconciled with the patient * Allergies:?Bactrim: rashPeni cillin: nazario[Allergies Verified] Objective: * Vitals:?Ht: 5ft4in, Wt:170, BMI:29.18, Shoe size: 7.5, BP:138/70mm Hg, Ht-cm: 162.56 cm, Wt-k.11 kg. * Examination: ???Nails: ?NAILS are:?Elongated, overgrown, dystrophic, lytic, greater than 3mm thick, discolored and friable with crumbly malodorous subungual debris, with pain on palpation , elongated,overgrown,dystrophic,greater than 3mm thick,discolored and friable with crumbly malodorous subungual debris, with pain on palpation, T2,T3,T4,?T5, T6, T8, T9? .?Neurological: ?SENSORY:?Neurological exam reveals intact sensorium, pain sensation normal, vibration sensation intact, pinprick sensation is normal in the lower extremities, Pt denies, anesthesia, burning, paresthesia, tingling, B/L.?Orthopedic: ?FOOT MORPHOLOGY:?Pes Planus structure, B/L.?Vascular: ?DP PULSES(B):? 2/4, B/L.?PT PULSES(B):? 2/4, B/L.?EDEMA(C):? 1/4, B/L, Ankle(s), without aching pain.?Dermatologic: ?SKIN FINDINGS:?Skin exam reveals normal color, texture, elasticity, and turgor. There are no masses, nor excrescences. The interspaces are clear, B/L.?Ingrown Nail: ?INSPECTION:?Reveals nail incurvation, pain on palpation, groove hypertrophy, medial nail border, TA.? Assessment: * Assessment: 1.?Pain in right toe(s) - M7 9.674???2.?Onychomycosis - B35.1 (Primary)???3.?Pain in left toe(s) - M79.675???4.?Ingrown nail - L60.0???Specify :Medial nail border, TA??? Plan: * Treatment: 2.?Ingrown nail?Procedure: 64335-Tovztneb Plate * Procedures:?Debride Nail 6-10:?Nail debridement?Performance of this nail treatment by a nonprofessional would put this patients foot and overall health at risk. Therefore, debridement to affected nail(s) as described in exam was performed extensively to reduce/remove overall nail length, girth, thickness, subungual debris, and necrotic tissue, by manual and/or electrical means through the use of a nail nipper and/or dremel-type roll grinder, to a more viable healthy nail plate or bed tissue 6-10. Silver nitrate used for any petechial bleeding as necessary. Definitive antifungal treatment options have been reviewed and discussed with the patient. The patient chooses, no pharmaceutical tx - 91974.?Nail Avulsion:?Location?Medial nail border, TA.?Anesthesia?was accomplished TOPICALLY with Lidocaine Hydrochloride Jelly 2 percent.?Procedure?A fine sterile elevator was placed between the eponychium, nail fold, and nail plate to separate the structures. A sterile nail splitter, and/or sterile 316 blade, was then used to longitudinally section the nail along its entire length through the eponychium to the area under the nail fold. The offending portion of nail was from the nail bed with a rolling action and then removed with a hemostat. No underlying bone was identified. There was minimal bleeding as hemostasis was achieved through the temporary use of either a digital tourniquet or the aforementioned local with epinephrine. A bacitracin sterile dressing was applied. Local wound aftercare instructions were discussed and dispensed. The patient was informed of both conservative and future surgical procedures to prevent recurrence. Tylenol or Motrin was recommended for pain or discomfort (07951).? * Procedure Codes:?51426 DEBRI DE NAIL, 6 OR MORE, Modifiers: XS 12829 Avulsion Plate, Modifiers: XS , TA * Follow Up:?3 Months * * Sign off status: Completed true * Provider:?Adilene Van DPM Date:?04/20/2023 Generated for Luana freedman/Monet/eTransmitting on:?03/23/2024 02:24 PM EST History and Physical Notes * HPI (History of Present Illness) Category Sub-Category Detail Notes Category Not es Painful Nails Pt States Last PCP Visit: Date:: 02/04/2024 Examination Category Sub-Category Detail Notes Category Not es Ingrown Nail INSPECTION: Reveals nail inc urvation, pain on palpation, groove hypertrophy, medial nail border, TA Neurological SENSORY: Neurological exa m reveals intact sensorium, pain sensation normal, vibration sensation intact, pinprick sensation is normal in the lower extremities, Pt denies, anesthesia, burning, paresthesia, tingling, B/L Dermatologic SKIN FINDINGS: Skin exam reveal s normal color, texture, elasticity, and turgor. There are no masses, nor excrescences. The interspaces are clear, B/L Orthopedic FOOT MORPHOLOGY: Pes Planus structure, B/ L Vascular DP PULSES(B): 2/4, B/L PT PULSES(B): 2/4, B/L EDEMA(C): 1/4, B/L, Ankle(s), without aching pain Nails NAILS are: Elongated, overg rown, dystrophic, lytic, greater than 3mm thick, discolored and friable with crumbly malodorous subungual debris, with pain on palpation , elongated,overgrown,dystrophic,greater than 3mm thick,discolored and friable with crumbly malodorous subungual debris, with pain on palpation, T2,T3,T4, T5, T6, T8, T9
--- OUTSIDE RECORDS SUMMARY | 2024-03-23 14:25 | XMS_ITS | Patient Health Record ---
[facility] Address [address] [place] [address] Care Team Providers Care Technology Sales Specialist Name Role Phone Karen Almaraz MD Primary Care Provider Unavailab Adilene Nelson Unavailable [phone] Rohan Ruiz Unavailable [phone] Allergies Allergen (clinical drug ingredient) Drug/Non Drug Allergy documented on EMR Reaction Allergy Type Onset Date Status sulfamethoxazole / trimethoprim Bactrim rash Drug Allergy Active Penicillin rash Drug Allergy Active Reason For Referral No Information Medications Medication SIG (Take, Route, Frequency, Duration) Notes Start Date End Date Status Calcipotriene Active Hydrocortisone Valerate Not-Taking Amlodipine & Diet Manage Prod 10mg once a day Active Ketocon Not-Taking Losartan Potassium 50 MG Orally Once a day Active Clobetasol Prop Crea-[place] Tar Active Desoximetasone 0.25 % TAKE 2 CAPSULES BY MOUTH 1 HR PRIOR TO APPT & THEN TAKE 2 CAPS EVERY 4 HOURS External for 30 Not-Taking Compression Stockings 20-30mm Hg as directed Active Vitamin B-6 Active Simvastatin Active Ciclopirox Olamine 0.77 % 1 application to affected area Externally Twice a day to effected areas on feet for 30 days Active Aspir-81 Not-Taking Vitamin D3 Active Atenolol Not-Taking Metoprolol & Diet Manage Prod 75mg 1 x a day Active Protopic 0.1 % TAKE 2 CAPSULES BY MOUTH 1 HR PRIOR TO APPT & THEN TAKE 2 CAPS EVERY 4 HOURS External for 30 Not-Taking Omeprazole 20 MG 1 tablet Orally Once a day Active Nortriptyline HCl Ac tive Immunizations Vaccine Route Administration Date Status Comme nts COVID-19 Pfizer BioNTech Vaccine Unknown 03/02/2021 Administered 1st 05/05/20,05/16/20 03/02/21 Influenza Unknown 01/30/2022 Administered Social History Tobacco Use: Social History Observation Description Date Details (start date - stop date) Never Smoker NA - NA Tobacco Use/Smoking Question Answer Notes Are you a: nonsmoker Additional Findings: Tobacco Non-User Current no n-smoker Alcohol Screen Question Answer Notes Did you have a drink containing alcohol in the p ast year? No Points 0 Interpretation Negative Tobacco use other than smoking: Question Answer Notes Are you an other tobacco user? No Problems Problem Type SNOMED Code ICD Code Onset Dates Problem Status W/U Status Risk Notes Problem Localized, primary osteoarthritis of the ankle and/or foot (691557160) Primary osteoarthrit is, right ankle and foot (M19.071) Active confirmed Vital Signs Blood pressure diastolic 70 mm Hg 02/19/2024 Height 5ft4in in 02/19/2024 Blood pressure systolic 138 mm Hg 02/19/2024 Weight 170 lbs 02/19/2024 BMI 29.18 kg/m2 02/19/2024 Procedures Procedure Date Ordered Date Performed Result Body Sit e 92350-ZMSZMVH NAIL, 6 OR MORE 02/19/2024 N/A 00869-Sjecsiwh Plate 02/19/2024 N/A Encounters Encounter Location Date Provider Diagnosis [facility] [address] [address] 04/17/2023 Rohan Ruiz Tinea unguium B35.1 ; Pain in right foot M79.671 ; Pain in left foot M79.672 ; Pain in right toe(s) M79.674 ; Pain in left toe(s) M79.675 ; Ingrowing nail L60.0 ; Tinea pedis B35.3 and Localized edema R60.[address] [facility] [address] 07/17/2023 Rohan Ruiz Tinea unguium B35.1 ; Pain in right foot M79.671 ; Pain in left foot M79.672 ; Pain in right toe(s) M79.674 ; Pain in left toe(s) M79.675 ; Ingrowing nail L60.0 ; Tinea pedis B35.3 and Localized edema R60.[address] [address] 11/05/2023 Rohan Ruiz Tinea unguium B35.1 ; Pain in right foot M79.671 ; Pain in left foot M79.672 ; Pain in right toe(s) M79.674 ; Pain in left toe(s) M79.675 ; Ingrowing nail L60.0 ; Tinea pedis B35.3 and Localized edema R60.[address] [address] 02/19/2024 Adilene Van Onychomycosis B35.1 ; Pain in right toe(s) M79.674 ; Pain in left toe(s) M79.675 and Ingrown nail L60.0 Assessments Encounter Date Diagnosis (ICD Code) Assessment Notes Treatment Notes Treatment Clinical Notes Section Notes 04/17/2023 Tinea unguium (ICD-10 - B35.1) 07/17/2023 Tinea unguium (ICD-10 - B35.1) 07/17/2023 Pain in right foot (ICD-10 - M79.671) 11/05/2023 Tinea unguium (ICD-10 - B35.1) 11/05/2023 Pain in right foot (ICD-10 - M79.671) 02/19/2024 Pain in right toe(s) (ICD-10 - M79.674) 02/19/2024 Onychomycosis (ICD-10 - B35.1) 11/05/2023 Pain in left foot (ICD-10 - M79.672) 02/19/2024 Pain in left toe(s) (ICD-10 - M79.675) 07/17/2023 Pain in left foot (ICD-10 - M79.672) 04/17/2023 Pain in right foot (ICD-10 - M79.671) 04/17/2023 Pain in left foot (ICD-10 - M79.672) 07/17/2023 Pain in right toe(s) (ICD-10 - M79.674) 11/05/2023 Pain in right toe(s) (ICD-10 - M79.674) 02/19/2024 Ingrown nail (ICD-10 - L60.0) 11/05/2023 Pain in left toe(s) (ICD-10 - M79.675) 07/17/2023 Pain in left toe(s) (ICD-10 - M79.675) 04/17/2023 Pain in right toe(s) (ICD-10 - M79.674) 04/17/2023 Pain in left toe(s) (ICD-10 - M79.675) 07/17/2023 Ingrowing nail (ICD-10 - L60.0) 11/05/2023 Ingrowing nail (ICD-10 - L60.0) 07/17/2023 Tinea pedis (ICD-10 - B35.3) 04/17/2023 Ingrowing nail (ICD-10 - L60.0) 11/05/2023 Tinea pedis (ICD-10 - B35.3) 11/05/2023 Localized edema (ICD-10 - R60.0) 07/17/2023 Localized edema (ICD-10 - R60.0) 04/17/2023 Tinea pedis (ICD-10 - B35.3) 04/17/2023 Localized edema (ICD-10 - R60.0) Plan Of Treatment Pending Test Test Name Order Date [id number] NAIL, 6 OR MORE 11/27/2011 31044-KUIKRST NAIL, 6 OR MORE 03/11/2012 29998-YKMUHUX NAIL, 6 OR MORE 05/20/2012 68286-SVAPBED NAIL, 6 OR MORE 08/12/2012 23810-YAGZHIC NAIL, 6 OR MORE 10/29/2012 65941-JFVLVYX NAIL, 6 OR MORE 01/06/2013 81214-QLLAQJF NAIL, 6 OR MORE 03/31/2013 23338-MHOJZTM NAIL, 6 OR MORE 11/10/2013 47223-OBVJRXF NAIL, 6 OR MORE 01/12/2014 59110-SANHSPV NAIL, 6 OR MORE 03/30/2014 66811-WKHQNDB NAIL, 6 OR MORE 03/08/2015 79898-OWIAOUW NAIL, 6 OR MORE 06/07/2015 54360-IMIZDZR NAIL, 6 OR MORE 08/30/2015 86282-NJUGHGX NAIL, 6 OR MORE 11/29/2015 39990-NHIANEV NAIL, 6 OR MORE 03/06/2016 76070-VYCFTRF NAIL, 6 OR MORE 06/19/2016 59617-ZXPMXUV NAIL, 6 OR MORE 09/18/2016 04272-ORFPUGK NAIL, 6 OR MORE 01/15/2017 20782-QKEVIJD NAIL, 6 OR MORE 04/16/2017 04196-YREBNGB NAIL, 6 OR MORE 06/09/2013 13191-DXFWOXH NAIL, 6 OR MORE 09/01/2013 43645-TZRUBZX NAIL, 6 OR MORE 06/29/2014 20608-BJSQZAU NAIL, 6 OR MORE 12/24/2017 23831-IZKJBJH NAIL, 6 OR MORE 02/18/2018 30720-LYCPEIC NAIL, 6 OR MORE 02/19/2024 16352-QTWPLDH NAIL, 6 OR MORE 09/14/2014 83042-TWUIYOF NAIL, 6 OR MORE 12/07/2014 63052-Lagxoesb Plate 12/07/2014 08313-Mcumehnn Plate 02/19/2024 28421-Giiagwxa Plate 06/29/2014 69492-Ceqbgfpw Plate 09/01/2013 19398-Ujdsdtuu Plate 03/30/2014 08282-Maqltqtf Plate 03/31/2013 18704-Klqtbxgb Plate 10/29/2012 84864-Jekgtdpd Plate 01/06/2013 50561-Vjjtpkll Plate 08/12/2012 01161-Stpwcmsd Plate 05/20/2012 10201-Lizaqvqc Plate 03/11/2012 34807-Ddpvnwga Plate 11/27/2011 22994- Nail Unit Biopsy 04/16/2017 Next Appt Details Provider Name:Adilene Peace lisa, 05/27/2024 09:15:00 AM, [address] [facility], [place], [address], Insurance Providers Payer Name Payer Address Payer Phone Subscriber Number Group Number Insured Name Patient Relationship to Insured Coverage Start Date Coverage End Date Medicare National Govt [facility] [address] [place] [address] [id number] Lidia Mcdonald Self - patient is the insured 6 for Life [address] [place] [address] [id number] Anatoliy Mcdonald Jr Spouse - patient is the spouse of the insured Medical (General) History Medical History History ICD Code anxiety Cholesterol cataracts diverticulitis headaches/migraines high blood pressure chronic sinusitis measles chicken pox Surgical History Surgery Date(Month/Year) polyp removal August 2005 appendectomy August 2005 tonsillectomy 1956 Breast Cysts colonoscopy D&C 06/2021 Hospitalization History Reason Date(Month/Year) [facility] ER- Stomach Flu 1 day 07/09/21 C- kidney stone 07/14/20 [facility] for GI bleed 04/18/18-04/22/18 [facility] for diverticulitis 10/15/15
--- OUTSIDE RECORDS SUMMARY | 2024-03-23 14:25 | XMS_ITS ---
Author Organization [facility] Address [address] [place] [address] Care Team Providers Care Copywriting Intern Name Role Phone Karen Almaraz MD Primary Care Provider Unavailab Joe Palacios Unavailable [phone] REASON FOR VISIT wants your opinion on new medication Encounters Encounter Location Date Provider Diagnosis [facility] [address] [place] [address] 09/10/2023 Joe Agudelo PLAN OF TREATMENT No Information
--- OUTSIDE RECORDS SUMMARY | 2024-03-23 14:25 | XMS_ITS ---
Author Organization [facility] Address [address] [place] [address] Care Team Providers Care Tipple Mechanic Name Role Phone Karen Almaraz MD Primary Care Provider UnavailAdilene Daily Unavailable [phone] Joseph Rohan Unavailable [phone] Allergies Allergen (clinical drug ingredient) Drug/Non Drug Allergy documented on EMR Reaction Allergy Type Onset Date Status sulfamethoxazole / trimethoprim Bactrim rash Drug Allergy Active Penicillin rash Drug Allergy Active REASON FOR VISIT Painful nail(s) aggrevated by shoes and causing difficulty standing/walking. Medications Medication SIG (Take, Route, Frequency, Duration) Notes Start Date End Date Status Compression Stockings 20-30mm Hg as directed Active Desoximetasone 0.25 % TAKE 2 CAPSULES BY MOUTH 1 HR PRIOR TO APPT & THEN TAKE 2 CAPS EVERY 4 HOURS External for 30 Not-Taking Protopic 0.1 % TAKE 2 CAPSULES BY MOUTH 1 HR PRIOR TO APPT & THEN TAKE 2 CAPS EVERY 4 HOURS External for 30 Not-Taking Ketocon Not-Taking Hydrocortisone Valerate Not-Taking Simvastatin Active Vitamin B-6 Active Omeprazole 20 MG 1 tablet Orally Once a day Active Atenolol Not-Taking Aspir-81 Not-Taking Metoprolol & Diet Manage Prod 75mg 1 x a day Active Nortriptyline HCl Ac tive Clobetasol Prop Crea-Lasalle Tar Active Losartan Potassium 50 MG Orally Once a day Active Calcipotriene Active Amlodipine & Diet Manage Prod 10mg once a day Active Ciclopirox Olamine 0.77 % 1 application to affected area Externally Twice a day to effected areas on feet for 30 days Active Social History Tobacco Use: Social History [...] other tobacco user? No Vital Signs Height 5 ft 4 in in 07/17/2023 Weight 162 lbs 07/17/2023 BMI 27.80 kg/m2 07/17/2023 Blood pressure systolic 120 mm Hg 07/17/19 24 Blood pressure diastolic 80 mm Hg 024 Encounters Encounter Location Date Provider Diagnosis [facility] [place] [address] [place] [address] 07/17/2023 Rohan Ruiz Tinea unguium B35.1 ; Pain in right foot M79.671 ; Pain in left foot M79.672 ; Pain in right toe(s) M79.674 ; Pain in left toe(s) M79.675 ; Ingrowing nail L60.0 ; Tinea pedis B35.3 and Localized edema R60.0 Assessments Encounter Date Diagnosis (ICD Code) Assessment Notes Treatment Notes Treatment Clinical Notes Section Notes 07/17/2023 Tinea unguium (ICD-10 - B35.1) 07/17/2023 Pain in right foot (ICD-10 - M79.671) 07/17/2023 Pain in left foot (ICD-10 - M79.672) 07/17/2023 Pain in right toe(s) (ICD-10 - M79.674) 07/17/2023 Pain in left toe(s) (ICD-10 - M79.675) 07/17/2023 Ingrowing nail (ICD-10 - L60.0) 07/17/2023 Tinea pedis (ICD-10 - B35.3) 07/17/2023 Localized edema (ICD-10 - R60.0) Plan Of Treatment Medication Medication Name Sig Start Date Stop Date Notes Compression Stockings 20-30mm Hg as directed Next Appt Details Follow Up: 3 Months, Reason: Provider Name:Adilene gonzalez, 05/27/2024 09:15:00 AM, [address] [facility], [facility] [place], [address], Procedure Notes * Category Sub-Category Detail Notes Debride Nail 6-10 Nail debridement Nail debridem ent performed extensively to reduce/remove overall nail length and girth, subungual debris, and necrotic tissue, by manual and electrical means with use of a nail nipper and/or dremel, to more viable healthy nail plate or bed tissue 6-10. Silver nitrate used for any petechial bleeding as necessary. Patient chooses, no pharmaceutical tx ([id number]) Progress Notes * Douglas MCDONALDOB: (73 yo F)Acc No.[id number]:07/17/2023 Progress Note Patient:?Lidia Mcdonald Provider:?Rohan Ruiz DPM :1950???Age:73 Y???Sex:Female D ate:07/17/2023 Address:[address] [place] [address] [id number] Pcp:Karen Almaraz MD Subjective: * Chief Complaints: * ??? Painful nail(s) aggrevat ed by shoes and causing difficulty standing/walking. * HPI: ???Painful Nails:?Pt States Last PCP Visit:?Date:?03/14/2023 ???Ingrown toenail:?Nature:?tenderness, aching.?Location:?Great toe, Left foot.?Course:?intermittent.?Aggrevated by:?any pressure, shoes.?Foot Pain:?Nature:?swelling.?Location:?B/L.?Course:?improved wiith use of comp stockings.? * ROS:?General/Constitutional:?Nausea?denies.?Vomiting?denies.?Hunger Thirst?denies.?Loss appetite?denies.?Chills?denies.?Fatigue?denies.?Fever?denies.?Night Sweats?denies.?Unexplained weight loss?denies.?Unexplained weight gain?denies.?HEENTM:?Dentures?denies.?Dizziness?denies.?Glasses/contacts?admits.?Retinopathy?de nies.?Blurred/double vision?denies.?TMJ?denies.?Discharge/drainage?denies.?Implants?denies.?Sore throat?denies.?Dental implants?denies.?Hard of hearing ?denies.?Difficulty chewing/swallowing/speaking?denies.?Nose bleeds?denies.?Sore mouth?denies.?Respiratory:?On Oxygen?denies.?Pneumonia/pleurisy?denies.?Bronchitis?denies.?Emphysema?denies.?C oughing?denies.?Cough blood?denies.?Shortness of breath?denies.?Wheezing?denies.?Cardiovascular:?Pacemaker?denies.?MVP?denies.?WPW?denies.?CHF?denies.?Heart attack?denies.?Septal defect?denies.?Rapid beat?denies.?Chest pain ?denies.?Atrial Fib.?denies.?Murmur/Palpitations?denies.?Gastrointestinal:?Hemorrhoids?denies.?Stomach/Abdominal pain?denies.?Dark blood stool?denies.?Irritable bowel ?denies.?Constipation?denies.?Diarrhea?denies.?Hematology:?Swelling?denies.?Clots?denies.?Varicose Veins?denies.?Bruising?denies.?Bleeding problem?denies.?Genitourinary:?Blood urine?denies.?Frequent/Painfu/urination/bladder control?denies.?Kidney stones?denies.?Infection (UTI)?denies.?Nephropathy?denies.?sex trans dis (STD)?denies.?Prostate?denies.?Musculoskeletal:?Hammertoes?denies.?Bunions?admits.?Back Pain?denies.?Muscle Cramps/ Resting?denies.?Muscle cramps / walking?denies.?Generalized aches and pains?denies.?Weakness?denies.?Integ.:?Robison?denies.?Scars?denies.?Corns/calluses?denies.?Ingrown nails?denies.?Painful nails?denies.?Open Sores?denies.?Rashes?denies.?Neurologic:?Difficulty sleeping?denies.?Brain disorder?denies.?Numbness?denies.?Balance trouble?denies.?Confusion?denies.?Fainting/blackouts?denies.?Tingling?denies.?Tr emors?denies.? * Medical History:? * Surgical History:?polyp coleen millie May 2006appendectomy May 2006tonsillectomy reast Cysts colonoscopy D&C 06/2021 * Hospitalization/Major Diagno stic Procedure:[place] [place]/15[facility] [place] bleed 04/18/18-04/22/18[facility] [place] kidney [place] 07/14/20[facility] [place] ER- Stomach Flu 1 day 07/09/21 * Family History:?Mother: dece ased, kidney disease, diagnosed with Family history of arthritis, Unspecified heart disease.?Father: , foot problems, diagnosed with Other malignant neoplasm of unspecified site.? * Social History:?Tobacco Use:?Tobacco Use/Smoking?Are you a:?nonsmoker ?Additional Findings: Tobacco Non-User?Current non-smoker ?Tobacco use other than smoking?Are you an other tobacco user??No ???Drugs/Alcohol:?Drugs?Have you used drugs other than those for medical reasons in the past 12 months??No ?Alcohol Screen?Did you have a drink containing alcohol in the past year??No ?Points?0 ?Interpretation?Negative ???Miscellaneous:?no Caffeine. ?Children: yes, 1. ?no Exercise. ?Marital status: . 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 * Medications:?TakingCompressi on Stockings 20-30mm Hg closed toe- knee high as directed Ciclopirox Olamine 0.77 % Cream 1 application to affected area Externally Twice a day to effected areas on feetAmlodipine & Diet Manage Prod 10mg once a dayCalcipotriene Clobetasol Prop Crea-Lasalle Tar Losartan Potassium 50 MG Tablet Orally Once a dayMetoprolol & Diet Manage Prod 75mg 1 x a dayNortriptyline HCl Omeprazole 20 MG Capsule Delayed Release 1 tablet Orally Once a daySimvastatin Vitamin B-6 Taking Compression Stockings 20-30mm Hg closed toe- knee high as directed Taking Ciclopirox Olamine 0.77 % Cream 1 application to affected area Externally Twice a day to effected areas on feetTaking Amlodipine & Diet Manage Prod 10mg once a dayTaking Calcipotriene Taking Clobetasol Prop Crea-Lasalle Tar Taking Losartan Potassium 50 MG Tablet Orally Once a dayTaking Metoprolol & Diet Manage Prod 75mg 1 x a dayTaking Nortriptyline HCl Taking Omeprazole 20 MG Capsule Delayed Release 1 tablet Orally Once a dayTaking Simvastatin Taking Vitamin B-6 Not-Taking/PRNAtenolol Aspir-81 Ketocon [...] rashPeni cillin: nazario[Allergies Verified] Objective: * Vitals:?Ht: 5 ft 4 in, Wt:16 2, BMI:27.80, Shoe size:7.5, BP:120/80 mm Hg. * Examination: ???Nails: ?NAILS are:?elongated,overgrown,dystrophic,greater than 3mm thick,discolored and friable with crumbly malodorous subungual debris, with pain on palpation, 1-5 Left foot, T5, T6, T8, T9? .?Neurological: ?SENSORY:?Neurological exam reveals intact sensorium, pain sensation normal, vibration sensation intact, pinprick sensation is normal in the lower extremities, Pt denies, anesthesia, burning, paresthesia, tingling, B/L.?Orthopedic: ?FOOT MORPHOLOGY:?Pes Planus structure, B/L.?Vascular: ?DP PULSES:? 2/4, B/L.?PT PULSES:? 2/4, B/L.?EDEMA:? /4, B/L, Ankle(s).?Dermatologic: ?SKIN FINDINGS:?Skin shows sign(s) of, erythema, scaling, in a moccasin fashion, no fissure(s) present, right ff--mild only 1 cm chintan lesion dorsum right ff.?Ingrown Nail: ?INSPECTION:?Reveals nail incurvation, pain on palpation, groove hypertrophy, groove ischemia, Medial nail border, TA.?General Examination: ?GENERAL APPEARANCE:?Reveals a pleasant, alert, well nourished, well developed, well hydrated individual, who demonstrates proper attention to hygene/body habitus, and is in no acute distress.?ORIENTED:?person, place, and time.? Assessment: * Assessment: 1.?Tinea unguium - B35.1 (Pr imary)?2.?Pain in right foot - M79.671?3.?Pain in left foot - M79.672?4.?Pain in right toe(s) - M79.674?5.?Pain in left toe(s) - M79.675?6.?Ingrowing nail - L60.0?7.?Tinea pedis - B35.3?8.?Localized edema - R60.0? Plan: * Treatment: * Procedures:?Debride Nail 6-10:?Nail debridement?Nail debridement performed extensively to reduce/remove overall nail length and girth, subungual debris, and necrotic tissue, by manual and electrical means with use of a nail nipper and/or dremel, to more viable healthy nail plate or bed tissue 6-10. Silver nitrate used for any petechial bleeding as necessary. Patient chooses, no pharmaceutical tx (71940).? * Procedure Codes:?49056 DEBRI DE NAIL, 6 OR MORE, Modifiers: XS * Preventive Medicine:? ??Counseling:?Discussion:?-13: Office or other outpatient visit for the evaluation and management of an established patient, which required a medically appropriate history and/or examination and LOW level of DECISION MAKING for: 1 STABLE ACUTE UNCOMPLICATED PROBLEM, 2 OR MORE MINOR PROBLEMS, OR 1 STABLE CHRONIC PROBLEM, THAT POSE(S) A LOW RISK FOR MORBIDITY/MORTALITY. The visit on the day of the encounter encompassed interpreting the data and educating the patient as to the nature of their condition, treatment options available according to their individual PMH, meds, allergies, and overall health/living conditions, as well as any potential risks or complications that may occur from a failure to adhere to, and participate in, the recommended course of therapy. The discussion included a complete verbal, and/or written explanation of the examination results, any x-rays taken, the proposed diagnosis, and outline of the treatment plan. A schedule for future care needs was also explained. The patient verbalized an understanding of the instructions at this time and agreed to be an active participant in their treatment. If the patient should think of any questions or concerns after the visit, I have encouraged the patient to call the office--pt to use abx ointment daily for ing nail and call for na prn.? * Follow Up:?3 Months * Images: * Sign off status: Completed true * Provider:?Rohan Ruiz DPM Date:? 024 Generated for Luana freedman/Monet/Shaq on:?03/23/2024 02:25 PM EST History and Physical Notes * HPI (History of Present Illness) Category Sub-Category Detail Notes Category Not es Ingrown toenail Nature: tenderness, aching Location: Great toe, Left foot Aggravated by: any pressure, shoes Course: intermittent Painful Nails Pt States Last PCP Visit: Date:: 03/14/2023 Foot Pain Nature: swelling Location: B/L Course: improved wiith use o f comp stockings Examination Category Sub-Category Detail Notes Category Not es Ingrown Nail INSPECTION: Reveals nail inc urvation, pain on palpation, groove hypertrophy, groove ischemia, Medial nail border, TA Neurological SENSORY: Neurological exa m reveals intact sensorium, pain sensation normal, vibration sensation intact, pinprick sensation is normal in the lower extremities, Pt denies, anesthesia, burning, paresthesia, tingling, B/L Dermatologic SKIN FINDINGS: Skin shows sign( s) of, erythema, scaling, in a moccasin fashion, no fissure(s) present, right ff--mild only 1 cm chintan lesion dorsum right ff Orthopedic FOOT MORPHOLOGY: Pes Planus structure, B/ L General Examination GENERAL APPEARANCE: Reveals a pleasant, alert, well nourished, well developed, well hydrated individual, who demonstrates proper attention to hygene/body habitus, and is in no acute distress ORIENTED: person, place, and t amado Vascular DP PULSES(B): 2/4, B/L PT PULSES(B): 2/4, B/L EDEMA(C): /, B/L, Ankle(s) Nails NAILS are: elongated,overgr own,dystrophic,greater than 3mm thick,discolored and friable with crumbly malodorous subungual debris, with pain on palpation, 1-5 Left foot, T5, T6, T8, T9
--- OUTSIDE RECORDS SUMMARY | 2024-03-23 14:25 | XMS_ITS ---
Author Organization [facility] Address [address] [place] [address] Care Team Providers Care Residential Life Director Name Role Phone Karen Almaraz MD Primary Care Provider UnavailAdilene Daily Unavailable [phone] Ruiz Rohan Unavailable [phone] Allergies Allergen (clinical drug ingredient) Drug/Non Drug Allergy documented on EMR Reaction Allergy Type Onset Date Status sulfamethoxazole / trimethoprim Bactrim rash Drug Allergy Active Penicillin rash Drug Allergy Active REASON FOR VISIT Painful nail(s) aggrevated by shoes and causing difficulty standing/walking. Medications Medication SIG (Take, Route, Frequency, Duration) Notes Start Date End Date Status Ketocon Not-Taking Hydrocortisone Valerate Not-Taking Compression Stockings 20-30mm Hg as directed Active Desoximetasone 0.25 % TAKE 2 CAPSULES BY MOUTH 1 HR PRIOR TO APPT & THEN TAKE 2 CAPS EVERY 4 HOURS External for 30 Not-Taking Protopic 0.1 % TAKE 2 CAPSULES BY MOUTH 1 HR PRIOR TO APPT & THEN TAKE 2 CAPS EVERY 4 HOURS External for 30 Not-Taking Aspir-81 Not-Taking Vitamin B-6 Active Atenolol Not-Taking Omeprazole 20 MG 1 tablet Orally Once a day Active Simvastatin Active Calcipotriene Active Metoprolol & Diet Manage Prod 75mg 1 x a day Active Nortriptyline HCl Ac tive Clobetasol Prop Crea-Defiance Tar Active Losartan Potassium 50 MG Orally Once a day Active Amlodipine & Diet Manage Prod 10mg [...] Signs Height 5 ft 4 in in 11/05/2023 Weight 168 lbs 11/05/2023 BMI 28.83 kg/m2 11/05/2023 Blood pressure systolic 138 mm Hg 11/05/19 Blood pressure diastolic 70 mm Hg 024 Encounters Encounter Location Date Provider Diagnosis [facility] [place] [place] [address] 11/05/2023 Rohan Ruiz Tinea unguium B35.1 ; Pain in right foot M79.671 ; Pain in left foot M79.672 ; Pain in right toe(s) M79.674 ; Pain in left toe(s) M79.675 ; Ingrowing nail L60.0 ; Tinea pedis B35.3 and Localized edema R60.0 Assessments Encounter Date Diagnosis (ICD Code) Assessment Notes Treatment Notes Treatment Clinical Notes Section Notes 11/05/2023 Tinea unguium (ICD-10 - B35.1) 11/05/2023 Pain in right foot (ICD-10 - M79.671) 11/05/2023 Pain in left foot (ICD-10 - M79.672) 11/05/2023 Pain in right toe(s) (ICD-10 - M79.674) 11/05/2023 Pain in left toe(s) (ICD-10 - M79.675) 11/05/2023 Ingrowing nail (ICD-10 - L60.0) 11/05/2023 Tinea pedis (ICD-10 - B35.3) 11/05/2023 Localized edema (ICD-10 - R60.0) Plan Of Treatment Medication Medication Name Sig Start Date Stop Date Notes Compression Stockings 20-30mm Hg as directed Next Appt Details Follow Up: 3 Months, 4 Month s, Reason: Provider Name:Adilene gonzalez, 05/27/2024 09:15:00 AM, [address] [facility], [facility] [place], [address], Procedure Notes * Category Sub-Category Detail Notes [...] as necessary. Patient chooses, no pharmaceutical tx (81039) Progress Notes * Douglas MCDONALDOB: (73 yo F)Acc No.[id number]:11/05/2023 Progress Note Patient:?Lidia Mcdonald Provider:?Rohan Ruiz DPM :1950???Age:73 Y???Sex:Female D ate:11/05/2023 Address:[address] [place] [address] [id number] Pcp:Karen Almaraz MD Subjective: * Chief Complaints: * ??? Painful nail(s) aggrevat ed by shoes and causing difficulty standing/walking. * HPI: ???Painful Nails:?Pt States Last PCP Visit:?Date:?09/25/2023 ???Ingrown toenail:?Nature:?tenderness, aching.?Location:?Great toe, Left foot.?Course:?intermittent.?Aggravated by:?any pressure, shoes.?Foot Pain:?Nature:?swelling.?Location:?B/L.?Course:?improved wiith use of [...] colonoscopy D&C 06/2021 * Hospitalization/Major Diagno stic Procedure:?[facility] [place] [place] bleed 04/18/18-04/22/18[facility] [place] kidney stone 07/14/20[facility] [place]- Stomach Flu 1 day 07/09/21 * [...] alcohol in the past year??No ?Points?0 ?Interpretation?Negative ???Miscellaneous:?Caffeine: yes, frequency: very occassionally. ?Children: yes, 1. ?no Exercise. ?Marital status: . 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 * Medications:?TakingVitamin D 3 Compression Stockings 20-30mm Hg closed toe- knee high as directed Ciclopirox Olamine 0.77 % Cream 1 application to affected area Externally Twice a day to effected areas on feetAmlodipine & Diet Manage Prod 10mg once a dayCalcipotriene Clobetasol Prop Crea-Defiance Tar Losartan Potassium 50 MG Tablet Orally Once a dayMetoprolol & Diet Manage Prod 75mg 1 x a dayNortriptyline HCl Omeprazole 20 MG Capsule Delayed Release 1 tablet Orally Once a daySimvastatin Vitamin B-6 Taking Vitamin D3 Taking Compression Stockings 20-30mm Hg closed toe- knee high as directed Taking Ciclopirox Olamine 0.77 % Cream 1 application to affected area Externally Twice a day to effected areas on feetTaking Amlodipine & Diet Manage Prod 10mg once a dayTaking Calcipotriene Taking Clobetasol Prop Crea-Defiance Tar Taking Losartan Potassium 50 MG Tablet Orally Once a dayTaking Metoprolol & Diet Manage Prod 75mg 1 x a dayTaking Nortriptyline HCl Taking Omeprazole 20 MG Capsule Delayed Release 1 tablet Orally Once a dayTaking Simvastatin Taking Vitamin B-6 Not- Taking/PRNAtenolol Aspir-81 Ketocon Hydrocortisone Valerate Desoximetasone 0.25 % [...] and reconciled with the patient * Allergies:?Bactrim: shraddhaPeni cillin: nazario[Allergies Verified] Objective: * Vitals:?Ht: 5 ft 4 in, Wt:16 8, BMI:28.83, Shoe size:7.5, BP:138/70 mm Hg. * Examination: ???Nails: ?NAILS are:?elongated,overgrown,dystrophic,greater [...] ?DP PULSES:? 2/4, B/L.?PT PULSES:? 2/4, B/L.?EDEMA:? 04/17, B/L, Ankle(s).?Dermatologic: ?SKIN FINDINGS:?Skin shows sign(s) of, [...] as necessary. Patient chooses, no pharmaceutical tx ([id number]).? * Procedure Codes:?73471 DEBRI DE NAIL, 6 OR MORE, Modifiers: XS * Follow Up:?3 Months, 4 Month s * Images: * Sign off status: Completed true * Provider:?Rohan Ruiz DPM Date:? 024 Generated for Luana freedman/Monet/Shaq on:?03/23/2024 02:24 PM EST History and Physical Notes * HPI (History of Present Illness) Category Sub-Category Detail Notes Category Not es Ingrown toenail Nature: tenderness, aching Location: Great toe, Left foot Aggravated by: any pressure, shoes Course: intermittent Painful Nails Pt States Last PCP Visit: Date:: 09/25/2023 Foot Pain Nature: swelling Location: B/L Course: [...] PT PULSES(B): 2/4, B/L EDEMA(C): 1/4, B/L, Ankle(s) Nails NAILS are: elongated,overgr own,dystrophic,greater than 3mm thick,discolored and friable with crumbly malodorous subungual debris, with pain on palpation, 1-5 Left foot, T5, T6, T8, T9
== END 2024-03-16 14:16 | disposition home or self-care (01) ==
PROVIDERS: PCP Family Medicine; Visit Provider Nurse Practitioner Family
DX: Z13.9 Encounter for screening, unspecified (principal)

== ENCOUNTER → 2024-03-16 13:22 | Outpatient (BNVA) | payer MEDICARE, OTHER, SELFPAY | PROVIDERS: PCP Family Medicine; Visit Provider Nurse Practitioner Family | DX: N28.1 Cyst of kidney, acquired (principal); N20.0 Calculus of kidney | CPT/HCPCS: 81003; 99212 ==

== ENCOUNTER 2024-03-29 14:07 | Outpatient (REF) | payer MEDICARE, OTHER, SELFPAY ==
--- OUTSIDE RECORDS SUMMARY | 2024-03-29 14:10 | XMS_ITS | Data Portability ---
Author Organization [place] [facility], Allergy Address [address] [address] Care Team Providers Care Manager Recruiting Name Role Phone DEANDRE TINAJERO Primary Care [...] tablets in a dose pack 2023 024 [facility], 28 [facility], [place], [address], 02/27/2024 13:29:05 Patient TargetsNo targets recorded. Patient InstructionsNo instructions recorded. Reason for Referral None Reported. Problems Name Problem SNOMED Code Status Onset Date Resolution Date Notes Provider Name and Address Organization Details Recorded Time Bilateral disorder of Eustachian tubes 9744624596971 107 Active 2023 SHARRON SYKES MD 100 [facility], [address], [place], [address], [facility] [place] 4 13:16:06 Disorder of right Eustachian tube 9474634593471 103 Active 2023 SHARRON SYKES MD 100 [facility] [address], [place], [address], [facility] [place] 4 13:16:37 Chronic serous otitis media of right ear 624437205 Active 2023 SHARRON SYKES MD 100 [facility] [address], [place], [address], [place] [facility] [place] 13:16:56 Problem Notes None recorded. Procedures Surgical History Date Name Laterality Status Provider Name and Address Organization Details Recorded Time 024 Fiberoptic Nasopharyngoscopy completed SHARRON SYKES MD 100 [facility],[address], [address], [facility] [place] 03/01/2024 08:03:55 Removal of tonsils completed SHARRON SYKES MD 100 [facility],[address], [address], [facility] [place] 02/27/2024 13:07:57 Partial removal of colon completed SHARRON SYKES MD 100 [facility],[address], [address], [facility] [place] 02/27/2024 13:08:06 Dilation and curettage completed SHARRON SYKES MD 100 [facility],[address], [address], [facility] [place] 02/27/2024 13:08:24 Imaging Results None recorded. Procedure [...] Updated DateTime 02/27/2024 162.56 cm 29.2 kg/m2 17910.7 g Jaja Mehta [place] - [facility] 02/27/2024 13:02:25 Social History None recorded. Functional Status None recorded. Mental Status None recorded. Family History Nothing Reported Notes:mother - htn, [place], hype rlipidemia father-lung cancer Medical History Condition Response Hyperlipidemia Y Arthritis Y Anxiety Y Hypertension Y Gynecological HistoryNo gynecological history recorded. Obstetrics History GPAL:G 0 P 0 0 0 0 Past Encounters Encounter ID Performer Location Encounter Start Date Encounter Closed Date Diagnosis/Indication Diagnosis SNOMED-CT Code Diagnosis ICD10 Code [id number] SHARRON SYKES MD [facility] [address] [address] 02/27/2024 12:50:26 02/27/2024 13:31:39 Disorder of right Eustachian tube 0689172528 695831 H69.91 Chronic se analisa otitis media of right ear 298790853 H65.21 Health Concerns Section Related Observation LastModified by Organization Detai ls LastModified Time None Recorded Concern Status LastModified by Organization Details LastModified Time None Recorded Advance Directives Directive None Recorded Payers Encounter Date Sequence Insurance Name Policy Number Policy Shelton Covered Member ID Shelton Member ID Guarantor Name 02/27/2024 2 FOR LIFE () Lidiamichael Mcdonald [id number] Lidia Mcdonald 02/27/2024 1 [place]IC[place] B[place] [employer] Lidiamichael Mcdonald [id number] Lidiamichael Mcdonald Notes Date Note Type Note [...] On nortriptyline for migraines. SHARRON SYKES MD [address] [place] [address], [place], [address], [place] [facility] 03/01/2024 08:06:50 OBGyn Episode No OBEpisode recorded.
--- OUTSIDE RECORDS SUMMARY | 2024-03-29 14:10 | XMS_ITS ---
Author Organization [facility] Address [address] [place] [address] Care Team Providers Care Learning Manager Name Role Phone Karen Almaraz MD Primary Care Provider UnavailAdilene Daily Unavailable [phone] Ruiz Rohan Unavailable [phone] Allergies Allergen (clinical drug ingredient) Drug/Non Drug [...] Active Nortriptyline HCl Ac tive Clobetasol Prop Crea-[place] Tar Active Losartan Potassium 50 MG Orally [...] 024 Encounters Encounter Location Date Provider Diagnosis [facility] [place] [address] [place] [address] 11/05/2023 Rohan Ruiz Tinea unguium B35.1 ; [...] Provider Name:Adilene gonzalez, 05/27/2024 09:15:00 AM, 81 [facility], [facility] [place], [address], Procedure Notes * Category Sub-Category Detail Notes [...] as necessary. Patient chooses, no pharmaceutical tx (63515) Progress Notes * Douglas MCDONALDOB: (73 yo F)Acc No.[id number]:11/05/2023 Progress Note Patient:?Lidia Mcdonald Provider:?Rohan Ruiz DPM :1950???Age:73 Y???Sex:Female D ate:11/05/2023 Address:[address] [place] [address] [facility] Pcp:Karen Almaraz MD Subjective: * Chief Complaints: [...] colonoscopy D&C 06/2021 * Hospitalization/Major Diagno stic Procedure:[place] [place] [facility] [place] 04/18/18-04/22/[facility] stone 07/14/20[facility]- Stomach Flu 1 day 07/09/21 * [...] 1. ?no Exercise. ?Marital status: . 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 * Medications:?TakingVitamin D 3 Compression Stockings 20-30mm Hg closed toe- knee high as directed Ciclopirox Olamine 0.77 % Cream 1 application to affected area Externally Twice a day to effected areas on feetAmlodipine & Diet Manage Prod 10mg once a dayCalcipotriene Clobetasol Prop Crea-[place] Tar Losartan Potassium 50 MG Tablet Orally [...] once a dayTaking Calcipotriene Taking Clobetasol Prop Crea-[place] Tar Taking Losartan Potassium 50 MG Tablet [...] as necessary. Patient chooses, no pharmaceutical tx (78854).? * Procedure Codes:?99787 DEBRI DE NAIL, 6 OR MORE, Modifiers: XS * Follow Up:?3 Months, 4 Month s * Images: * Sign off status: Completed true * Provider:?Rohan Ruiz DPM Date:? 024 Generated for Luana freedman/Monet/Shaq on:?03/29/2024 02:10 PM EST History and Physical Notes * [...]
--- OUTSIDE RECORDS SUMMARY | 2024-03-29 14:10 | XMS_ITS | Continuity of Care Document ---
Author Organization [place] [facility], [facility] Address [address] [place] [address] Care Team Providers Care Market Development Specialist Name Role Phone DEANDRE TINAJERO Primary Care Provider [phone] DEANDRE TINAJERO Referring Provider [phone] Assessment Encounter Date Assessment Date Assessment LastModified [...] tablets in a dose pack 2023 024 [facility], [address] [facility], [place], [address], 02/27/2024 13:29:05 Patient TargetsNo targets recorded. Patient InstructionsNo instructions recorded. Reason for Referral None Reported. Problems Name Problem SNOMED Code Status Onset Date Resolution Date Notes Provider Name and Address Organization Details Recorded Time Bilateral disorder of Eustachian tubes 1354924999532 107 Active 2023 SHARRON SYKES MD 100 [facility] [address], [place], [address], [place] [facility] [place] 4 13:16:06 Disorder of right Eustachian tube 4824341299216 103 Active 2023 SHARRON SYKES MD 100 [facility], [address], [place], [address], [place] [facility] [place] 4 13:16:37 Chronic serous otitis media of right ear 455865328 Active 2023 SHARRON SYKES MD 100 [facility], [address], [place], [address], [place] [facility] [place] 4 13:16:56 Problem Notes None recorded. Procedures Surgical History Date Name Laterality Status Provider Name and Address Organization Details Recorded Time 024 Fiberoptic Nasopharyngoscopy completed SHARRON SYKES MD 100 [facility],[address], [address], [facility] - [facility] 03/01/2024 08:03:55 Removal of tonsils completed SHARRON SYKES MD 100 [facility],[address], [address], [facility] - [facility] [place] 02/27/2024 13:07:57 Partial removal of colon completed SHARRON SYKES MD [address] [place] [address],[address], [address], [facility] - [facility] 02/27/2024 13:08:06 Dilation and curettage completed SHARRON SYKES MD 100 [facility],[address], [address], [facility] - [facility] [place] 02/27/2024 13:08:24 Imaging Results None recorded. Procedure [...] Updated DateTime 02/27/2024 162.56 cm 29.2 kg/m2 56656.7 g Jaja Mehta [place] - [facility] 02/27/2024 13:02:25 Social History None recorded. Functional Status None recorded. Mental Status None recorded. Family History Nothing Reported Notes:mother - htn, [place], hype rlipidemia father-lung cancer Medical History Condition Response Hyperlipidemia Y Arthritis Y Anxiety Y Hypertension Y Gynecological HistoryNo gynecological history recorded. Obstetrics History GPAL:G 0 P 0 0 0 0 Past Encounters Encounter ID Performer Location Encounter Start Date Encounter Closed Date Diagnosis/Indication Diagnosis SNOMED-CT Code Diagnosis ICD10 Code [id number] SHARRON SYKES MD [facility] [address] [address] 02/27/2024 12:50:26 02/27/2024 13:31:39 Disorder of right Eustachian tube 9733245393 101301 H69.91 Chronic se analisa otitis media of right ear 548750743 H65.21 Health Concerns Section Related Observation LastModified by Organization Detai ls LastModified Time None Recorded Concern Status LastModified by Organization Details LastModified Time None Recorded Payers Encounter Date Sequence Insurance Name Policy Number Policy Shelton Covered Member ID Shelton Member ID Guarantor Name 02/27/2024 2 FOR LIFE () Lidiamichael Mcdonald [id number] Lidia Mcdonald 02/27/2024 1 [place]IC[place] B-[place] [employer] Lidiamichael Mcdonald [id number] Lidia Mcdonald Notes Date Note Type Note [...] On nortriptyline for migraines. SHARRON SYKES MD [address] [place] [address], [place], [address], [place] [facility] 03/01/2024 08:06:50 OBGyn Episode No OBEpisode recorded.
--- OUTSIDE RECORDS SUMMARY | 2024-03-29 14:10 | XMS_ITS ---
Author Organization [facility] Address [address] [place] [address] Care Team Providers Care Legal Consultant Name Role Phone Karen Almaraz MD Primary Care Provider Adilene Davila Unavailable [phone] Allergies Allergen (clinical drug ingredient) Drug/Non Drug [...] Orally Once a day Active Clobetasol Prop Crea-[place] Tar Active Metoprolol & Diet Manage Prod [...] Ordered Date Performed Result Body Sit e 36101-RCZTSQZ NAIL, 6 OR MORE 02/19/2024 N/A 19799-Outaqpgj Plate 02/19/2024 N/A Encounters Encounter Location Date Provider Diagnosis [facility] [place] [address] [place] [address] 02/19/2024 Adilene Van Onychomycosis B35.1 ; Pain [...] Treatment Pending Test Test Name Order Date 18943-FUDXCVK NAIL, 6 OR MORE 02/19/2024 63798-Jlajvhna Plate 02/19/2024 Next Appt Details Follow Up: 3 Months, Reason: Provider Name:Adilene gonzalez, 05/27/2024 09:15:00 AM, [address] [place], [address], Procedure Notes * Category Sub-Category Detail Notes [...] Motrin was recommended for pain or discomfort (49961) Anesthesia was accomplished TOP ICALLY with Lidocaine [...] use of a nail nipper and/or dremel-type shear grinder operator, to a more viable healthy nail plate or bed tissue 6-10. Silver nitrate used for any petechial bleeding as necessary. Definitive antifungal treatment options have been reviewed and discussed with the patient. The patient chooses, no pharmaceutical tx - 72424 Progress Notes * Douglas MCDONALDOB: (73 yo F)Acc No.[id number]:02/19/2024 Progress Note Patient:?Lidia MCDONALD Provider:?Adilene Van DPM :1950???Age:73 Y???Sex:Female D ate:02/19/2024 Address:[address] [place] [address] Pcp:Karen Almaraz MD Subjective: * Chief Complaints: [...] colonoscopy D&C 06/2021 * Hospitalization/Major Diagno stic Procedure:[place] [place] 10/15/[place] for GI bleed 04/18/18-04/22/18[facility] kidney stone 07/14/20[facility] ER- Stomach Flu 1 day [...] 1. ?Exercise: no. ?Marital status: . 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 * Medications:?TakingCompressi on Stockings 20-30mm Hg closed toe- knee high as directed Vitamin D3 Ciclopirox Olamine 0.77 % Cream 1 application to affected area Externally Twice a day to effected areas on feet Amlodipine & Diet Manage Prod 10mg once a day Calcipotriene Clobetasol Prop Crea-[place] Tar Losartan Potassium 50 MG Tablet Orally [...] a day Taking Calcipotriene Taking Clobetasol Prop Crea-[place] Tar Taking Losartan Potassium 50 MG Tablet [...] border, TA??? Plan: * Treatment: 2.?Ingrown nail?Procedure: 95257-Cfphfclf Plate * Procedures:?Debride Nail 6-10:?Nail debridement?Performance of this nail treatment by a nonprofessional would put this patients foot and overall health at risk. Therefore, debridement to affected nail(s) as described in exam was performed extensively to reduce/remove overall nail length, girth, thickness, subungual debris, and necrotic tissue, by manual and/or electrical means through the use of a nail nipper and/or dremel-type shear grinder operator, to a more viable healthy nail plate or bed tissue 6-10. Silver nitrate used for any petechial bleeding as necessary. Definitive antifungal treatment options have been reviewed and discussed with the patient. The patient chooses, no pharmaceutical tx - 56174.?Nail Avulsion:?Location?Medial nail border, TA.?Anesthesia?was accomplished TOPICALLY with [...] Motrin was recommended for pain or discomfort (29741).? * Procedure Codes:?42873 DEBRI DE NAIL, 6 OR MORE, Modifiers: XS 34206 Avulsion Plate, Modifiers: XS , TA * Follow Up:?3 Months * * Sign off status: Completed true * Provider:?Adilene Van DPM Date:?04/20/2023 Generated for Luana freedman/Monet/eTransmitting on:?03/29/2024 02:10 PM EST History and Physical [...]
--- OUTSIDE RECORDS SUMMARY | 2024-03-29 14:11 | XMS_ITS ---
Author Organization [facility] Address [address] [place] [address] Care Team Providers Care Bridge Gang Worker Name Role Phone Karen Almaraz MD Primary Care Provider Unavailab Joe Palacios Unavailable [phone] REASON FOR VISIT Is having a vaginal biopsy tomorrow Encounters Encounter Location Date Provider Diagnosis [facility] [address] [place] [address] 03/24/2023 Joe Agudelo PLAN OF TREATMENT No Information
--- OUTSIDE RECORDS SUMMARY | 2024-03-29 14:11 | XMS_ITS | Patient Health Record ---
Author Organization [facility] Address [address] [place] [address] Care Team Providers Care Mechanical Car Checker Name Role Phone Karen Almaraz MD Primary Care Provider Unavailab Adilene Nelson Unavailable [phone] Rohan Ruiz Unavailable [phone] Allergies Allergen (clinical drug ingredient) Drug/Non Drug [...] Orally Once a day Active Clobetasol Prop Crea-[place] Tar Active Desoximetasone 0.25 % TAKE 2 [...] primary osteoarthritis of the ankle and/or foot (889107580) Primary osteoarthrit is, right ankle and foot (M19.071) Active confirmed Vital Signs Blood pressure diastolic 70 mm Hg 02/19/2024 Height 5ft4in in 02/19/2024 Blood pressure systolic 138 mm Hg 02/19/2024 Weight 170 lbs 02/19/2024 BMI 29.18 kg/m2 02/19/2024 Procedures Procedure Date Ordered Date Performed Result Body Sit e 26993-ALXABWO NAIL, 6 OR MORE 02/19/2024 N/A 75830-Mismddxw Plate 02/19/2024 N/A Encounters Encounter Location Date Provider Diagnosis [facility] [address] [address] 04/17/2023 Rohan Ruiz Tinea unguium B35.1 ; Pain in right foot M79.671 ; Pain in left foot M79.672 ; Pain in right toe(s) M79.674 ; Pain in left toe(s) M79.675 ; Ingrowing nail L60.0 ; Tinea pedis B35.3 and Localized edema R60.0 [facility] [address] 07/17/2023 Rohan Ruiz Tinea unguium B35.1 ; Pain in right foot M79.671 ; Pain in left foot M79.672 ; Pain in right toe(s) M79.674 ; Pain in left toe(s) M79.675 ; Ingrowing nail L60.0 ; Tinea pedis B35.3 and Localized edema R60.[address] [address] 11/05/2023 Rohan Ruiz Tinea unguium B35.1 ; Pain in right foot M79.671 ; Pain in left foot M79.672 ; Pain in right toe(s) M79.674 ; Pain in left toe(s) M79.675 ; Ingrowing nail L60.0 ; Tinea pedis B35.3 and Localized edema R60.[address] [address] 02/19/2024 Adilene Van Onychomycosis B35.1 ; Pain [...] - M79.674) 02/19/2024 Onychomycosis (ICD-10 - B35.1) 02/19/2024 Pain in left toe(s) (ICD-10 - M79.675) 11/05/2023 Pain in left foot (ICD-10 - M79.672) 07/17/2023 Pain in left foot (ICD-10 - [...] L60.0) 11/05/2023 Ingrowing nail (ICD-10 - L60.0) 11/05/2023 Tinea pedis (ICD-10 - B35.3) 07/17/2023 Tinea pedis (ICD-10 - B35.3) 04/17/2023 Ingrowing nail (ICD-10 - L60.0) 04/17/2023 Tinea pedis (ICD-10 - B35.3) 07/17/2023 Localized edema (ICD-10 - R60.0) 11/05/2023 Localized edema (ICD-10 - R60.0) 04/17/2023 Localized edema (ICD-10 - R60.0) Plan Of Treatment Pending Test Test Name Order Date 19344-UILQJHI NAIL, 6 OR MORE 05/20/2012 67318-GPRMZNV NAIL, 6 OR MORE 08/12/2012 25771-OQORSJF NAIL, 6 OR MORE 06/09/2013 77080-YILKCWJ NAIL, 6 OR MORE 11/10/2013 51732-OTKNETJ NAIL, 6 OR MORE 01/12/2014 31855-ERKIUYK NAIL, 6 OR MORE 06/29/2014 42232-DUCUSVF NAIL, 6 OR MORE 03/08/2015 94819-FZXBVWA NAIL, 6 OR MORE 06/07/2015 95965-WLSNGSQ NAIL, 6 OR MORE 08/30/2015 05303-GZXWIXJ NAIL, 6 OR MORE 11/29/2015 29759-HTFVVZT NAIL, 6 OR MORE 03/06/2016 90525-ZCSYLHW NAIL, 6 OR MORE 06/19/2016 94354-ZCJPJLE NAIL, 6 OR MORE 09/18/2016 81456-CVPFNLD NAIL, 6 OR MORE 12/24/2017 53580-PIUOWGK NAIL, 6 OR MORE 02/18/2018 08564-EVFKBCJ NAIL, 6 OR MORE 02/19/2024 03043-VDHFQLM NAIL, 6 OR MORE 01/06/2013 47477-LXOQEON NAIL, 6 OR MORE 03/31/2013 95579-MKQKQXS NAIL, 6 OR MORE 09/14/2014 80226-OLHIBPP NAIL, 6 OR MORE 12/07/2014 38998-PKFWVRG NAIL, 6 OR MORE 04/16/2017 31728-ANZXTJT NAIL, 6 OR MORE 01/15/2017 49455-BFPXQVJ NAIL, 6 OR MORE 09/01/2013 83620-LZZDNVU NAIL, 6 OR MORE 10/29/2012 20696-OUGBCYC NAIL, 6 OR MORE 03/11/2012 13398-DGLQOIN NAIL, 6 OR MORE 11/27/2011 47858-DIKZZDL NAIL, 6 OR MORE 03/30/2014 93153-Mwqknjxq Plate 03/30/2014 50905-Gkisjviy Plate 11/27/2011 93750-Xcitfctm Plate 03/11/2012 13888-Rdubcmdf Plate 10/29/2012 63081-Vxzlhncs Plate 09/01/2013 19677-Wpdnqwqa Plate 12/07/2014 32720-Fawofezp Plate 03/31/2013 34748-Dsqmmgtv Plate 02/19/2024 55738-Cppfnbed Plate 06/29/2014 68323-Tsseutgf Plate 08/12/2012 63799-Mpkaecoe Plate 01/06/2013 58346-Oednshja Plate 05/20/2012 42700- Nail Unit Biopsy 04/16/2017 Next Appt Details Provider Name:Adilene Peace lisa, 05/27/2024 09:15:00 AM, [address] [facility], [place], [address], Insurance Providers Payer Name Payer Address Payer Phone Subscriber Number Group Number Insured Name Patient Relationship to Insured Coverage Start Date Coverage End Date Medicare National Govt [facility] [address] [place] [address] [id number] Lidia Mcdonald Self - patient is the insured 6 for Life [address] [place] [address] [id number] Anatoliy Mcdonald Jr Spouse - patient is the spouse of the insured Medical (General) History Medical History History ICD Code anxiety Cholesterol cataracts diverticulitis headaches/migraines high blood pressure chronic sinusitis measles chicken pox Surgical History Surgery Date(Month/Year) polyp removal August 2005 appendectomy August 2005 tonsillectomy 1956 Breast Cysts colonoscopy D&C 06/2021 Hospitalization History Reason Date(Month/Year) [facility]- Stomach Flu 1 day 07/09/21 C- kidney stone 07/14/20 [facility] for GI bleed 04/18/18-04/22/18 [facility] for diverticulitis 10/15/15
--- OUTSIDE RECORDS SUMMARY | 2024-03-29 14:11 | XMS_ITS ---
Author Organization [facility] Address [address] [place] [address] Care Team Providers Care Ironmolder Name Role Phone Karen Almaraz MD Primary Care Provider UnavailAdilene Daily Unavailable [phone] Joseph Rohan Unavailable [phone] Allergies Allergen (clinical drug ingredient) Drug/Non Drug [...] Active Nortriptyline HCl Ac tive Clobetasol Prop Crea-[place] Tar Active Losartan Potassium 50 MG Orally [...] 024 Encounters Encounter Location Date Provider Diagnosis [facility] [place] [address] [place] [address] 07/17/2023 Rohan Ruiz Tinea unguium B35.1 ; [...] Provider Name:Adilene gonzalez, 05/27/2024 09:15:00 AM, 81 [facility], [facility] [place], [address], Procedure Notes * Category Sub-Category Detail Notes [...] as necessary. Patient chooses, no pharmaceutical tx (98784) Progress Notes * Douglas MCDONALDOB: (73 yo F)Acc No.[id number]:07/17/2023 Progress Note Patient:?Lidia Mcdonald Provider:?Rohan Ruiz DPM :1950???Age:73 Y???Sex:Female D ate:07/17/2023 Address:[address] [place] [address] [phone] Pcp:Karen Almaraz MD Subjective: * Chief Complaints: [...] colonoscopy D&C 06/2021 * Hospitalization/Major Diagno stic Procedure:?[facility] [place] 10/15/15[facility] [place] bleed 04/18/18-04/22/18[facility]- kidney stone 07/14/20[facility]- Stomach Flu 1 day 07/09/21 * [...] 1. ?no Exercise. ?Marital status: . 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 * Medications:?TakingCompressi on Stockings 20-30mm Hg closed toe- knee high as directed Ciclopirox Olamine 0.77 % Cream 1 application to affected area Externally Twice a day to effected areas on feetAmlodipine & Diet Manage Prod 10mg once a dayCalcipotriene Clobetasol Prop Crea-[place] Tar Losartan Potassium 50 MG Tablet Orally [...] once a dayTaking Calcipotriene Taking Clobetasol Prop Crea-[place] Tar Taking Losartan Potassium 50 MG Tablet [...] as necessary. Patient chooses, no pharmaceutical tx (87352).? * Procedure Codes:?71032 DEBRI DE NAIL, 6 OR MORE, Modifiers: [...]
--- OUTSIDE RECORDS SUMMARY | 2024-03-29 14:11 | XMS_ITS ---
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
--- OUTSIDE RECORDS SUMMARY | 2024-03-29 14:11 | XMS_ITS ---
Author Organization [facility] Address [address] [place] [address] Care Team Providers Care Ways Operator Name Role Phone Karen Almaraz MD Primary Care Provider Unavailab Joe Palacios Unavailable [phone] REASON FOR VISIT wants your opinion on new medication Encounters Encounter Location Date Provider Diagnosis [facility] [address] [place] [address] 09/10/2023 Joe Agudelo PLAN OF TREATMENT No Information
--- OUTSIDE RECORDS SUMMARY | 2024-03-29 14:11 | XMS_ITS | Patient Health Record ---
Author Organization [facility] Address [address] [place] [address] Care Team Providers Care Plug Grower Name Role Phone Karen Almaraz MD Primary Care Provider Joe Carney Unavailable [phone] ALLERGIES Allergen (clinical drug ingredient) Drug/Non Drug [...] adenomatous polyp of colon (Z86.010) Active confirmed 575597634 Problem Acute gastritis with hemorrhage, unspecified gastritis type (K29.01) Active confirmed 0797239 Problem Encounter for screening for malignant neoplasm of colon (Z12.11) Active confirmed 447577862 Problem Blood in stool (K92.1) Active confirmed 784595016 Problem Abdominal bloating (R14.0) Active confirmed 796161779 Problem Flatulence (R14.3) Active confirmed 353483336 Problem 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 History of gastrointestinal tract bypass (856013410) Problem Diverticulosis of large intestine without perforation or abscess without bleeding (K57.30) Active confirmed Diverticul ar disease of colon (814142651) Encounters Encounter Location Date Provider Diagnosis [facility] [address] [place] [address] 09/10/2023 Joe Agudelo PLAN OF TREATMENT Future Test Test Name Order Date COLONOSCOPY 11/26/2022 Insurance Providers Payer Name Payer Address Payer Phone Subscriber Number Group Number Insured Name Patient Relationship to Insured Coverage Start Date Coverage End Date MEDICARE OF [place] [address] [place] [address] [id number] CRUZ CHRISTINA Self - patient is the insured FOR LIFE [address] [place] [address] [id number] CRUZ CHRISTINA Self - patient is the insured MEDICAL (GENERAL) HISTORY Medical History History ICD Code Kidney stones--cystoscopy with stent/ESW L Hypertension Hypercholesterolemia Denies AR,DM,CVA,Lung disease,renal dise ase Colon polyp-removed surgical ly in 2005--subsequent colonoscopies have been negative, with the most recent one in 07/2017. She had previously been followed in [place] by Dr. Nunez UGI bleed 04/2018 with [...]
== END 2024-03-29 14:08 | disposition home or self-care (01) ==
LOC: HO.MAMMO 14:07
PROVIDERS: PCP Family Medicine; Visit Provider Family Medicine
DX: Z12.31 Encounter for screening mammogram for malignant neoplasm of breast (principal)
CPT/HCPCS: 77063; 77067

== ENCOUNTER → 2024-03-29 14:15 | Outpatient (BNV) | payer MEDICARE, OTHER, SELFPAY | PROVIDERS: PCP Family Medicine; Visit Provider Internal Medicine | DX: Z12.31 Encounter for screening mammogram for malignant neoplasm of breast (principal) | CPT/HCPCS: 77063; 77067 ==

== ENCOUNTER → 2024-05-18 08:45 | Outpatient (BNV) | payer MEDICARE, OTHER, SELFPAY | PROVIDERS: PCP Family Medicine; Visit Provider Internal Medicine | DX: R92.2 Inconclusive mammogram (principal) | CPT/HCPCS: 76642; 77065; G0279 ==

== ENCOUNTER 2024-11-16 12:51 | Outpatient (REF) | payer MEDICARE, OTHER, SELFPAY ==
--- OUTSIDE RECORDS SUMMARY | 2024-11-11 23:59 | XMS_ITS | Continuity of Care Document ---
Author Organization [facility] Address [address] [place] [address]- [facility] Name Relationship Address Phone YESI CHRISTINA [...] YESI Personal Relationship Unknown Unav ailable SANFORD, EYSI Personal Relationship Unknown Unav ailable SANFORD, CRZU Personal Relationship Unknown Ada vailable SANFORD, YESI [...] Unknown Unav ailable Care Team Providers Care Antichecking Iron Worker Name Role Phone Rufina MONTALVO, Karen Mcclendon Primary Care Physician Encounter [facility] NBR [id number] Date(s): 10/12/24 - 11/11/24 [facility] [address] [place] [address]- Encounter Type: Triage Allergies, Adverse Reactions, Alerts Substance Criticality Severity Reaction Reaction Severity Status dicloxacillin rash dyspnea Active sulfa drugs full body rash Act live tamsulosin dizziness vomiting Active Immunizations Given and Recorded Vaccine Date Status [...] virus vaccine, inactivated 01/11/10 Give n SARS-CoV-2(COVID-19)mRNA-LNP vac([id number]) 12/22/23 Recorded SARS-CoV-2(COVID-19)mRNA-LNP vac([id number]) 01/14/23 Recorded [id number] 12y+ bivalent booster vax 02/17/22 Recorded SARS-CoV-2 mRNA ([id number]) vax 08/01/21 Recorded SARS-CoV-2 (COVID-19) mRNA BNT-162b2 [...] tetanus-diphtheria toxoids (Td) 04/14/02 Given 1Result Comment: [facility]# [id number] 2Result Comment: [facility]# [id number] 3Result Comment: [02/27/2018] [facility]# [id number] 4Admin Note: Amy 5Admin Note: VIS Given FLULAVAL 6Admin Note: at work 7Result Comment: [02/12/2017] [facility] [id number] 8Result Comment: [01/12/2014] MITA Johnson amLODIPine 10 mg oral tablet 1 tablet, By Mouth, Daily, # 90 tablet, 3 Refills, Maintenance, 03/23/24 10:20:00 AM EST, [facility], 155, cm, 02/04/24 11:13:00 EDT, Height, 76, kg, 10/30/23 9:14:00 EDT, Dry Weight Start Date: 03/23/24 Status: Ordered Quantity: 90.0 Unit: tablet Repeat number: 1 calcipotriene 0.005% topical solution [...] Ordered Repeat number: 1 clobetasol 0.05% topical ointment See Instructions, APPLY A THIN FILM TOPICALLY 1 TO 2 TIMES PER WEEK NEEDED, # 45 Gm, 1 Refills, Maintenance, 09/28/24 2:29:00 PM EDT, [facility], 157, APPLY A THIN FILM TOPICALLY 1TO 2 TIMES PER WEEK NEEDED, 153, cm, 09/28/24 14:07:00 EDT, Height, 76, kg, 10/30/23 9:14:00 EDT, Dry Weight Start Date: 09/28/24 Status: Ordered Quantity: 45.0 Unit: g Repeat number: 2 Elastic compression stockings 20-30 mm Hg Elastic compression stockings 20-30 mm Hg, See Instructions, # 2 pair, Refills 1, Tot. Refills 1, Maintenance, Wear stockings daily when up standing, remove at night, 03/05/19 4:50:30 PM EST Start Date: 03/05/19 Status: Ordered Quantity: 2.0 Unit: pair Repeat number: 2 fluticasone 50 mcg/inh nasal spray 1 sprays = 50 mcg, Nares, Both, 2 times a day, # 3 each, 3 Refills, Maintenance, 04/21/24 1:49:00 PM EST, [place], [facility], Partial fill upon patient request if the prescription is for a schedule II opioid drug., 1 sprays Nares, Both 2 times a day,x90 days, 155, cm, 04/21/24 13:20:00 EST, Height, 76, kg, 10/30/23 9:14:00 EDT, Dry Weight Start Date: 04/21/24 Stop Date: 04/16/25 Status: Ordered Quantity: 3.0 Unit: each Repeat number: 4 LORazepam 0.5 mg oral tablet 1 tablet = 0.5 mg, By Mouth, Daily, Dx: Anxiety Controlled Substance Contract in place may fill on or after 10/14/24, # 28 tablet, 0 Refills, Maintenance, 11/09/24 12:09:00 PM EDT, [facility], COVERING PROVIDER, 153, cm, 10/27/24 16:52:00 EDT, Height, 76, kg, 10/30/23 9:14:00 EDT, DryWeight Start Date: 11/09/24 Status: Ordered Quantity: 28.0 Unit: tablet Repeat number: 1 losartan 50 mg oral tablet See Instructions, TAKE ONE TABLET BY MOUTH EVERY DAY, # 90 tablet, 3 Refills, 10/26/24 8:22:00 AM EDT, [facility], 153, cm, 10/26/24 7:58:00 EDT, Height, 76, kg, 10/30/23 9:14:00 EDT,Dry Weight Start Date: 10/26/24 Status: Ordered Quantity: 90.0 Unit: tablet Repeat number: 4 Metoprolol Succinate ER 50 mg oral tablet, extended release See Instructions, TAKE 1 & 1/2 TABLETS BY MOUTH DAILY., # 135 tablet, Refills 1, Tot. Refills 1, 10/06/24 8:20:00 AM EDT, Instructions Replace Required Details, Route to Pharmacy Electronically, [facility], 153, cm, 09/28/24 14:07:00 EDT, Height, 76, kg, 10/30/23 9:14:00 EDT, Dry Weight Start Date: 10/06/24 Status: Ordered Quantity: 135.0 Unit: tablet Repeat number: 2 nortriptyline 25 mg oral capsule 1, capsule, By Mouth, Daily, # 90 capsule, Refills 3, Tot. Refills 3, Maintenance, 04/21/24 1:35:00 PM EST, Route to Pharmacy Electronically, [facility], 155, cm, 04/21/24 13:20:00 EST, Height, 76, kg, 10/30/23 9:14:00 EDT, Dry Weight Start Date: 04/21/24 Status: Ordered Quantity: 90.0 Unit: capsule Repeat number: 4 omeprazole 20 mg oral enteric coated capsule 1 capsule, By Mouth, Daily, for 90 days, # 90 capsule, 3 Refills, Physician Stop 04/16/25 1:37:00 PM EST, 04/21/24 1:37:00 PM EST, [facility], 155, cm, 04/21/24 13:20:00 EST, Height, 76,kg, 10/30/23 9:14:00 EDT, Dry Weight Start Date: 04/21/24 Stop Date: 04/16/25 Status: Ordered Quantity: 90.0 Unit: capsule Repeat number: 4 risedronate 150 mg oral tablet 1 tablet = 150 mg, By Mouth, Every 30 days, with 6-8 oz plain water, at least 30 minutes before first food, beverage, or medication of the day, # 1 tablet, 12 Refills, Maintenance, 09/28/24 2:29:00 PMEDT, Tablet, [facility], Partial fill upon patient request if the prescription is for a schedule II opioid drug., 153, cm, 09/28/24 14:07:00 EDT, Height, 76, kg, 10/30/23 9:14:00 EDT, Dry Weight Start Date: 09/28/24 Status: Ordered Quantity: 1.0 Unit: tablet Repeat number: 13 simvastatin 20 mg oral tablet 1, tablet, By Mouth, Daily at bedtime, # 90 tablet, Refills 3, Maintenance, 03/12/24 9:17:00 AM EST, Route to Pharmacy Electronically, [facility], 155, cm, 02/04/24 11:13:00 EDT, Height, 76, kg, 10/30/23 9:14:00 EDT, Dry Weight Start Date: 03/12/24 Status: Ordered Quantity: 90.0 Unit: tablet Repeat [...] Effective Dates Status H ealth Status Informant Anxiety Confirmed Active Diverticulosis Confirmed Active Hypercholesterolemia Confirmed Active Hyperglycemia Confirmed Active Hypertension Confirmed Active Kidney stones Confirmed Active Menopause Confirmed Active Obese class I Confirmed Active Osteoporosis Confirmed Active Itching of vulva Confirmed Active Psoriasis Confirmed Active Fatty liver Confirmed Active Vulvar irritation Confirmed Active Social History Social History Type Response Smoking Status Never (less than 100 in lifetime); Tobacco user in household: No entered on: 03/08/19 Sex Sex Representation Female (finding) Patient Care team information Care Team Personnel Name: Karen Almaraz MD Position: [facility] Physician - Primary Care Member Role: PCP Address: [address] [place] [address] Telecom: Care Team Related Persons Name: YESI CHRISTINA Insurance Providers Guarantor name: CRUZ CHRISTINA Health Plan Information #: 1 Payer: MEDICARE B Payer Identifier: SARAH Member Number: [id number] Group Number: [id number] Subscriber Identifier: [id number] Relationship to Subscriber: self Coverage Type: NA Coverage Verification Date: SARAH Telecom: NA Address: Health Plan Information #: 2 Payer: FOR LIFE Payer Identifier: NA Member Number: [id number] Group Number: [id number] Subscriber Identifier: [id number] Relationship to Subscriber: spouse Coverage Type: For Life--Medicare Supplement Coverage Verification Date: NA Telecom: NA Address: NA
--- NOTE | ~2024-11-16 | MM_ITS ---
EXAMINATION: MM DIAGNOSTIC DIGITAL BREAST TOMOSYNTHESIS, LEFT CLINICAL INFORMATION: This is a 6-month follow-up of left breast subtle architectural distortion best seen on the CC view, that could represent postsurgical changes from previous remote excisional biopsy. According to the patient, the excisional biopsy was done in 70s or 80s. COMPARISON: March 29, 2024 and May 18, 2024 TECHNIQUE: Digital breast tomosynthesis is performed in craniocaudal view along with computer-aided detection (CAD). Synthesized 2D images are generated from the tomosynthesis. Spot compression tomosynthesis images also obtained. FINDINGS: BREAST COMPOSITION: There are scattered areas of fibroglandular density (ACR BI-RADS breast composition Category b). LEFT BREAST: Unchanged previously suggested subtle architectural distortion in the retroareolar region middle depth on the CC view. MM/MM tomosynthesis diagnostic LT IMPRESSION: LEFT BREAST: Unchanged previously suggested subtle architectural distortion in the retroareolar region middle depth on the CC view, probably representing postsurgical changes from remote excisional biopsy as previously stated. Probably benign. A 6-month follow-up is recommended as bilateral diagnostic mammogram expected in March 2025. ASSESSMENT: BI-RADS 3 - Probably benign finding(s) - 6 month follow-up suggested RECOMMENDATION: 6 Month F/U Results were provided to the patient at time of visit by the technologist. This patient's information was entered into a reminder system with a target due date for their next mammogram. Electronically signed by: Deuce Milner MD 11/16/2024 01:45 PM EDT
== END 2024-11-16 12:52 | disposition home or self-care (01) ==
LOC: HO.MAMMO 12:51
PROVIDERS: PCP Family Medicine; Visit Provider Family Medicine
DX: N64.89 Other specified disorders of breast (principal)
CPT/HCPCS: 77061; 77065

== ENCOUNTER → 2024-11-16 13:00 | Outpatient (BNV) | payer MEDICARE, OTHER, SELFPAY | PROVIDERS: PCP Family Medicine; Visit Provider Radiology Body Imaging | DX: R92.8 Other abnormal and inconclusive findings on diagnostic imaging of breast (principal) | CPT/HCPCS: 77065; G0279 ==

== ENCOUNTER 2024-12-02 08:52 | Outpatient (REF) | payer MEDICARE, OTHER, SELFPAY ==
--- NOTE | ~2024-12-02 | US_ITS ---
CLINICAL HISTORY: N20.0 - Calculus of kidney US Renal Comparison: US/SR - US RENAL BI - 03/09/24 14:04 EST Findings: Right kidney normal size and echotexture, 9.1 cm length. Small upper pole cysts measuring 0.5 x 0.4 x 0.6 cm Left kidney normal size and echotexture, 10.5 cm length. Pole cysts measuring 1.5 x 1.0 x 1.0 cm No collecting system dilatation of either kidney. Normal color Doppler. IMPRESSION: 1. Small bilateral renal cysts, otherwise unremarkable. No evidence of hydronephrosis or nephrolithiasis. This document has been electronically signed by: Eunice Salmon MD on 12/02/2024 22:54:32
--- OUTSIDE RECORDS SUMMARY | 2024-12-02 09:51 | XMS_ITS ---
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 Name Role Phone Unavailable Primary Care Physician Unavailab le History Of Present Illness No Data Allergies, Adverse Reactions, Alerts Substance RxNorm Reaction(s) Severity Status Start Da te dicloxacillin 3356 Weal, Rash, Hives mild to moderate a ctive 04/14/1998 Sulfa (Sulfonamide Antibiotics) Weal, Rash, Hives mild to moderate active 1998 Medications Medication Generic Name RxNorm Strength Strength Unit Route Dose Dose Form Frequency Date Started Date Ended Status Indication Sig betamethaso ne dipropionat e betameth asone dipropio lorena 509167 0.05 % Topica l lotio n 05/23/19 22 suspend ed Appl y BID to scal p for up to two week s at a time . betamethaso ne valerate betameth asone valerate 935539 0.1 % Topica l cream 12/29/19 20 suspend ed Appl y BID PRN to eyel ids calcipotrie ne calcipot riene 178854 0.005 % Topica l 1 cream BID 11/01/19 16 active calcipotrie ne calcipot riene 258452 0.005 % Topica l ointm ent 06/23/19 20 suspend ed Appl y BID as need ed for psor iasi s on the legs clobetasol clobetas ol 146312 0.05 % Topica l ointm ent 05/11/19 21 suspend ed Appl y BID PRN to wors t area s of psor iasi s on legs clobetasol cl[place]et[place] ol 265963 0.05 % Topica l foam 03/23/20 23 suspend ed clob etas ol 0.05 % / calc ipot rien e 0.00 5% foam . Appl y twic e curtis y to area s of psor iasi s as need ed. clobetasol clobetas ol 408760 0.05 % Topica l 1 cream BID 03/31/20 24 active Appl y BID PRN to psor iasi s on righ t leg unti l mi r. clobetasol clobetas ol 078920 0.05 % Topica l foam 09/30/19 25 active clob etas ol 0.05 % / calc ipot rien e 0.00 5% foam . Appl y twic e curtis y to area s of psor iasi s as need ed. Elidel pimecrol imus 622031 1 % Topica l cream 06/23/19 20 suspend ed Appl y BID to affe cted area s of psor iasi s on the face PRN. Enstilar calcipot riene-be tamethas one 3541540 0.005-0.0 64 % Topica l foam BID 03/07/20 21 suspend ed Appl y AM and PM to area s of psor iasi s lowe r righ t leg and scal p mometasone mometaso ne 859950 0.1 % Topica l 1 cream BID 11/28/19 17 active pimecrolimu s pimecrol imus 526444 1 % Topica l cream 05/23/19 22 suspend ed Appl y BID to affe cted area s of psor iasi s on the face PRN. albuterol sulfate 90 mcg/actua tion Inhala tion HFA aeros ol inhal er suspend ed pyridoxine (vitamin B6) pyridoxi ne (vitamin B6) unknown unknown Oprah 1 table t QD active amlodipine amlodipi ne 150358 10 mg Oral 1 table t QD 01/31/20 10 active Centrum mv-min-F A-Ca-Fe- lycopen- lutein NULL 18-400 mg-mcg Oral 1 table t QD 09/22/19 15 active lorazepam lorazepa m 796821 0.5 mg Oral 1 table t QD 01/31/20 10 active losartan losartan 609824 50 mg Oral 1 table t QD 06/18/19 19 active metoprolol tartrate metoprol ol tartrate 5802393 75 mg Oral 1 table t QD 06/18/19 19 active nortriptyli ne nortript yline 138331 25 mg Oral 1 capsu le PRN 01/31/20 10 active omeprazole omeprazo le 19790813 20 mg Oral 1 capsu le,de layed relea se (e.c. ) PRN 06/18/19 19 active simvastatin simvasta tin 949200 20 mg Oral 1 table t QD 01/31/20 10 active calcipotrie ne calcipot riene 320545 0.005 % Scalp solut ion 12/29/19 20 suspend ed Appl y BID to scal p PRN clobetasol clobetas ol 074215 0.05 % Scalp solut ion 06/23/19 20 suspend ed Appl y twic e curtis y for two week s on, one week off for acti ve rash on scal p unti l mi r. amLODIPine Besylate NULL 0 19 active amLODIPine Besylate NULL 0 12 active Amoxicillin NULL 05/18/19 11 active Aspirin NULL 01/31/20 10 suspend ed Atenolol NULL 05/18/19 15 active Atenolol NULL 01/31/20 10 suspend ed Azithromyci n NULL 05/08/19 12 active Azithromyci n NULL 09/22/19 15 active Betamethaso ne Valerate NULL 11/12 10/01 17 suspend ed Butalbital- APAP-Caffei ne NULL 09/22/19 15 active Calcipotrie ne NULL 09/22/19 15 suspend ed Caltrate 600 NULL 01/31/20 10 active Cephalexin NULL 05/08/19 12 active Ciprofloxac in HCl NULL 11/01/19 16 active Ciprofloxac in HCl NULL 09/22/19 15 active Clindamycin HCl NULL 10/23/19 12 active Clindamycin Phosphate NULL 10 active Clobetasol Propionate NULL 04/10 16 suspend ed Clobetasol Propionate NULL 04/26 11 suspend ed Clobetasol Propionate NULL 05/08 12 active Desoximetas one NULL 09/22/19 15 active Doxycycline Hyclate NULL 04/27/19 16 active Doxycycline Monohydrate NULL 03/15 01/01 10 active Dritho-Crem e HP NULL 09/22/19 15 active Elidel NULL 03/27/20 16 suspend ed Erythromyci n NULL 09/22/19 15 active Fluzone NULL 09/22/19 15 active Fosamax NULL 01/31/20 10 active GaviLyte-C NULL 04/27/19 16 active Hydrocortis one Valerate NULL 0 17 suspend ed Ketoconazol e NULL 03/07/20 10 suspend ed LORazepam NULL 05/08/19 12 active Lotemax NULL 08/05/19 14 active metroNIDAZO LE NULL 11/01/19 16 active Multivitami ns NULL 01/31/20 10 active Mupirocin NULL 01/31/20 10 active Mupirocin Calcium NULL 04/27/19 16 active Nortriptyli ne HCl NULL 05/18/19 15 active Pimecrolimu s NULL 06/18/19 19 active Protopic NULL 08/05/19 14 active Simvastatin NULL 05/08/19 12 active Triamcinolo ne Acetonide NULL 15 active Problems Problem Code Type Status Date of Diagnosis Date of Resolution Psoriasis vulgaris (disorder) ( SNOMED) Diagnosis active 11/30/2024 Psoriasis vulgaris (disorder) 802394686( SNOMED) Diagnosis active 11/25/2024 Psoriasis vulgaris (disorder) 954192214( SNOMED) Diagnosis active 11/23/2024 Psoriasis vulgaris (disorder) 703283603( SNOMED) Diagnosis active 11/18/2024 Psoriasis vulgaris (disorder) 731318779( SNOMED) Diagnosis active 11/09/2024 Psoriasis vulgaris (disorder) 392014900( SNOMED) Diagnosis active 11/02/2024 Psoriasis vulgaris (disorder) 222208452( SNOMED) Diagnosis active 10/28/2024 Psoriasis vulgaris (disorder) 571342969( SNOMED) Diagnosis active 10/26/2024 Psoriasis vulgaris (disorder) 461462898( SNOMED) Diagnosis active 10/19/2024 Psoriasis vulgaris (disorder) 242470640( SNOMED) Diagnosis active 10/14/2024 Psoriasis vulgaris (disorder) 435887906( SNOMED) Diagnosis active 10/07/2024 Psoriasis vulgaris (disorder) 974569756( SNOMED) Diagnosis active 10/05/2024 Psoriasis vulgaris (disorder) 928432119( SNOMED) Diagnosis active 09/30/2024 Psoriasis vulgaris (disorder) 949394618( SNOMED) Diagnosis active 09/29/2024 Psoriasis vulgaris (disorder) ( SNOMED) Diagnosis active 09/28/2024 Psoriasis vulgaris (disorder) ( SNOMED) Diagnosis active 09/23/2024 Psoriasis vulgaris (disorder) ( SNOMED) Diagnosis active 09/16/2024 Psoriasis vulgaris (disorder) ( SNOMED) Diagnosis active 09/14/2024 Psoriasis vulgaris (disorder) ( SNOMED) Diagnosis active 09/09/2024 Psoriasis vulgaris (disorder) ( SNOMED) Diagnosis active 09/07/2024 Psoriasis vulgaris (disorder) ( SNOMED) Diagnosis active 09/02/2024 Psoriasis vulgaris (disorder) ( SNOMED) Diagnosis active 08/31/2024 Psoriasis vulgaris (disorder) ( SNOMED) Diagnosis active 08/26/2024 Psoriasis vulgaris (disorder) 357038642( SNOMED) Diagnosis active 08/24/2024 Psoriasis vulgaris (disorder) 618642974( SNOMED) Diagnosis active 08/19/2024 Psoriasis vulgaris (disorder) 056216568( SNOMED) Diagnosis active 08/17/2024 Psoriasis vulgaris (disorder) ( SNOMED) Diagnosis active 08/05/2024 Psoriasis vulgaris (disorder) ( SNOMED) Diagnosis active 08/03/2024 Psoriasis vulgaris (disorder) ( SNOMED) Diagnosis active 07/29/2024 Psoriasis vulgaris (disorder) ( SNOMED) Diagnosis active 07/27/2024 Psoriasis vulgaris (disorder) ( SNOMED) Diagnosis active 07/20/2024 Psoriasis vulgaris (disorder) 933356299( SNOMED) Diagnosis active 07/15/2024 Psoriasis vulgaris (disorder) ( SNOMED) Diagnosis active 07/13/2024 Psoriasis vulgaris (disorder) ( SNOMED) Diagnosis active 07/08/2024 Psoriasis vulgaris (disorder) 973423147( SNOMED) Diagnosis active 07/06/2024 Psoriasis vulgaris (disorder) 799723091( SNOMED) Diagnosis active 07/01/2024 Psoriasis vulgaris (disorder) 111769452( SNOMED) Diagnosis active 06/29/2024 Psoriasis vulgaris (disorder) 576064856( SNOMED) Diagnosis active 06/24/2024 Psoriasis vulgaris (disorder) 598496341( SNOMED) Diagnosis active 06/22/2024 Psoriasis vulgaris (disorder) 054105879( SNOMED) Diagnosis active 06/15/2024 Psoriasis vulgaris (disorder) 877243563( SNOMED) Diagnosis active 06/10/2024 Psoriasis vulgaris (disorder) 063845244( SNOMED) Diagnosis active 06/08/2024 Psoriasis vulgaris (disorder) 294839105( SNOMED) Diagnosis active 06/03/2024 Psoriasis vulgaris (disorder) 083431287( SNOMED) Diagnosis active 06/01/2024 Psoriasis vulgaris (disorder) 630781207( SNOMED) Diagnosis active 05/27/2024 Psoriasis vulgaris (disorder) 352255031( SNOMED) Diagnosis active 05/25/2024 Psoriasis vulgaris (disorder) 435403137( SNOMED) Diagnosis active 05/20/2024 Psoriasis vulgaris (disorder) 401544308( SNOMED) Diagnosis active 2024 Psoriasis vulgaris (disorder) 004357478( SNOMED) Diagnosis active 05/11/2024 Psoriasis vulgaris (disorder) 422837086( SNOMED) Diagnosis active 05/06/2024 Psoriasis vulgaris (disorder) 615819055( SNOMED) Diagnosis active 05/04/2024 Psoriasis vulgaris (disorder) 612589077( SNOMED) Diagnosis active 04/29/2024 Psoriasis vulgaris (disorder) 559312007( SNOMED) Diagnosis active 04/27/2024 Psoriasis vulgaris (disorder) 642261477( SNOMED) Diagnosis active 04/20/2024 Psoriasis vulgaris (disorder) 736706994( SNOMED) Diagnosis active 04/15/2024 Psoriasis vulgaris (disorder) 658024935( SNOMED) Diagnosis active 04/13/2024 Psoriasis vulgaris (disorder) 935239780( SNOMED) Diagnosis active 04/06/2024 Psoriasis vulgaris (disorder) 442559199( SNOMED) Diagnosis active 04/01/2024 Psoriasis vulgaris (disorder) 003855045( SNOMED) Diagnosis active 04/01/2024 Psoriasis vulgaris (disorder) 302818897( SNOMED) Diagnosis active 03/31/2024 Psoriasis vulgaris (disorder) 150320585( SNOMED) Diagnosis active 03/18/2024 Psoriasis vulgaris (disorder) 421883991( SNOMED) Diagnosis active 03/16/2024 Psoriasis vulgaris (disorder) 752675929( SNOMED) Diagnosis active 03/09/2024 Psoriasis vulgaris (disorder) 146890561( SNOMED) Diagnosis active 03/04/2024 Psoriasis vulgaris (disorder) 984495514( SNOMED) Diagnosis active 03/02/2024 Psoriasis vulgaris (disorder) 753499869( SNOMED) Diagnosis active 02/19/2024 Psoriasis vulgaris (disorder) 209235428( SNOMED) Diagnosis active 02/17/2024 Psoriasis vulgaris (disorder) 693842581( SNOMED) Diagnosis active 02/12/2024 Psoriasis vulgaris (disorder) 318932533( SNOMED) Diagnosis active 02/10/2024 Psoriasis vulgaris (disorder) 195490461( SNOMED) Diagnosis active 02/05/2024 Psoriasis vulgaris (disorder) 787676828( SNOMED) Diagnosis active 02/03/2024 Psoriasis vulgaris (disorder) 923281087( SNOMED) Diagnosis active 01/29/2024 Psoriasis vulgaris (disorder) 418137617( SNOMED) Diagnosis active 01/27/2024 Psoriasis vulgaris (disorder) 819507343( SNOMED) Diagnosis active 01/22/2024 Psoriasis vulgaris (disorder) 270946608( SNOMED) Diagnosis active 01/20/2024 Psoriasis vulgaris (disorder) 583978617( SNOMED) Diagnosis active 01/13/2024 Psoriasis vulgaris (disorder) 306640039( SNOMED) Diagnosis active 01/08/2024 Psoriasis vulgaris (disorder) 622710102( SNOMED) Diagnosis active 01/06/2024 Psoriasis vulgaris (disorder) 352030767( SNOMED) Diagnosis active 01/01/2024 Psoriasis vulgaris (disorder) 135683839( SNOMED) Diagnosis active 12/30/2023 Psoriasis vulgaris (disorder) 274937391( SNOMED) Diagnosis active 12/25/2023 Psoriasis vulgaris (disorder) 322758943( SNOMED) Diagnosis active 12/23/2023 Psoriasis vulgaris (disorder) 622500299( SNOMED) Diagnosis active 12/18/2023 Psoriasis vulgaris (disorder) 031220799( SNOMED) Diagnosis active 12/16/2023 Psoriasis vulgaris (disorder) 785413829( SNOMED) Diagnosis active 12/11/2023 Psoriasis vulgaris (disorder) 914449261( SNOMED) Diagnosis active 12/04/2023 Psoriasis vulgaris (disorder) 573375592( SNOMED) Diagnosis active 11/27/2023 Psoriasis vulgaris (disorder) 320519992( SNOMED) Diagnosis active 11/20/2023 Psoriasis vulgaris (disorder) 005647306( SNOMED) Diagnosis active 11/18/2023 Psoriasis vulgaris (disorder) ( SNOMED) Diagnosis active 11/11/2023 Psoriasis vulgaris (disorder) ( SNOMED) Diagnosis active 11/06/2023 Psoriasis vulgaris (disorder) ( SNOMED) Diagnosis active 11/04/2023 Psoriasis vulgaris (disorder) ( SNOMED) Diagnosis active 10/30/2023 Psoriasis vulgaris (disorder) ( SNOMED) Diagnosis active 10/23/2023 Psoriasis vulgaris (disorder) ( SNOMED) Diagnosis active 10/21/2023 Psoriasis vulgaris (disorder) ( SNOMED) Diagnosis active 10/14/2023 Psoriasis vulgaris (disorder) ( SNOMED) Diagnosis active 09/24/2023 Lipoma of trunk (disorder) 7727179023 50329(SNOM ED) Diagnosis active 09/24/2023 Psoriasis vulgaris (disorder) ( SNOMED) Diagnosis active 03/19/2023 Lipoma of trunk (disorder) 6495461171 74311(SNOM ED) Diagnosis active 03/19/2023 Psoriasis vulgaris (disorder) ( SNOMED) Diagnosis active 09/12/2022 Psoriasis vulgaris (disorder) ( SNOMED) Diagnosis active 03/14/2022 Neoplasm of uncertain behavior of skin (disorder) 00416123(S NOMED) Diagnosis active 03/14/2022 Lipoma of trunk (disorder) 9079039951 59748(SNOM ED) Diagnosis active 03/14/2022 Psoriasis vulgaris (disorder) 541723125( SNOMED) Diagnosis active 09/06/2021 Lipoma of trunk (disorder) 6309419092 27857(SNOM ED) Diagnosis active 09/06/2021 Neoplasm of uncertain behavior of skin (disorder) 10185991(S NOMED) Diagnosis active 09/06/2021 Psoriasis vulgaris (disorder) 239906176( SNOMED) Diagnosis active 05/23/2021 Irritant contact dermatitis (disorder) 551763511( SNOMED) Diagnosis active 05/23/2021 Lipoma of trunk (disorder) 6214083284 11208(SNOM ED) Diagnosis active 05/23/2021 Psoriasis vulgaris (disorder) 208745624( SNOMED) Diagnosis active 03/07/2021 Lipoma of trunk (disorder) 4250345810 90711(SNOM ED) Diagnosis active 03/07/2021 Inflamed seborrheic keratosis (disorder) 151484004( SNOMED) Diagnosis active 03/07/2021 Psoriasis vulgaris (disorder) 092452857( SNOMED) Diagnosis active 01/03/2021 Lipoma of trunk (disorder) 4654066802 41622(SNOM ED) Diagnosis active 01/03/2021 Psoriasis vulgaris (disorder) 971171910( SNOMED) Diagnosis active 11/08/2020 Seborrheic keratosis (disorder) 733626392( SNOMED) Diagnosis active 11/08/2020 Psoriasis vulgaris (disorder) 444867976( SNOMED) Diagnosis active 09/28/2020 Inflamed seborrheic keratosis (disorder) 034866454( SNOMED) Diagnosis active 09/28/2020 Psoriasis vulgaris L40.0(ICD- 10) Diagnosis active 06/28/2020 Psoriasis vulgaris L40.0(ICD- 10) Diagnosis active 05/25/2020 Psoriasis vulgaris L40.0(ICD- 10) Diagnosis active 12/29/2019 Psoriasis vulgaris L40.0(ICD- 10) Diagnosis active 06/23/2019 Encounter for immunization Z23(ICD-10 ) Diagnosis active 06/17/2018 Psoriasis vulgaris (disorder) 674735327( SNOMED) Diagnosis active 06/17/2018 Psoriasis vulgaris (disorder) ( SNOMED) Diagnosis active 12/17/2017 Other specified health status Z78.9(ICD- 10) Diagnosis active 06/11/2017 History of pneumonia (situation) 399029331( SNOMED) Diagnosis active 06/11/2017 Psoriasis vulgaris (disorder) ( SNOMED) Diagnosis active 06/11/2017 Personal history of other drug therapy Z92.29(ICD -10) Diagnosis active 11/27/2016 Psoriasis vulgaris (disorder) 224866594( SNOMED) Diagnosis active 11/27/2016 Psoriasis vulgaris (disorder) ( SNOMED) Diagnosis active 05/15/2016 Psoriasis vulgaris (disorder) ( SNOMED) Diagnosis active 04/10/2016 Psoriasis vulgaris (disorder) ( SNOMED) Diagnosis active 03/27/2016 Disorder of skin and/or subcutaneous tissue (disorder) 02677511(S NOMED) Diagnosis active 11/01/2015 Atopic dermatitis (disorder) 65268456(S NOMED) Diagnosis active 05/03/2015 Disorder of skin and/or subcutaneous tissue (disorder) 32902236(S NOMED) Diagnosis active 04/27/2015 Psoriasis (disorder) 7879532(SN OMED) Diagnosis active 09/21/2014 Psoriasis (disorder) 5020926(SN OMED) Diagnosis active 2014 Increased blood pressure (finding) 45620805(S NOMED) Problem active Psoriasis (disorder) 6429522(SN OMED) Problem active Anxiety disorder (disorder) 152750911( SNOMED) Problem active History of hypertension (situation) 910955436( SNOMED) Problem active Eczema (disorder) 24564720(S NOMED) Problem active History of hay fever (situation) 122609570( SNOMED) Problem active Hypercholesterolemia (disorder) 72958001(S NOMED) Problem active Results No data Encounters Service provided at [address], [address], [place], [place] [id number]. Office phonenumber is [phone]. Office fax number is [phone]. Encounter Diagnosis Location Date / Time Type Psoriasis (L40.0) [facility] 11/30/2024 15:15:00 [facility] [place] Reason For Referral No data Procedures Procedure Date Phototherapy of skin (procedure) 025 12:00 am UTC Phototherapy of skin (procedure) 025 12:00 am UTC Phototherapy of skin (procedure) 025 12:00 am UTC Phototherapy of skin (procedure) 025 12:00 am UTC Phototherapy of skin (procedure) 025 12:00 am UTC Phototherapy of skin (procedure) 025 12:00 am UTC Phototherapy of skin (procedure) 025 12:00 am UTC Phototherapy of skin (procedure) 025 12:00 am UTC Phototherapy of skin (procedure) 025 12:00 am UTC Phototherapy of skin (procedure) 025 12:00 am UTC Phototherapy of skin (procedure) 025 12:00 am UTC Phototherapy of skin (procedure) 025 12:00 am [place] Documentation of current medications (pr ocedure) 10/01/2024 12:00 am UTC Phototherapy of skin (procedure) 025 12:00 am UTC Phototherapy of skin (procedure) 025 12:00 am UTC Phototherapy of skin (procedure) 025 12:00 am UTC Phototherapy of skin (procedure) 025 12:00 am UTC Phototherapy of skin (procedure) 025 12:00 am UTC Phototherapy of skin (procedure) 025 12:00 am UTC Phototherapy of skin (procedure) 025 12:00 am UTC Phototherapy of skin (procedure) 025 12:00 am UTC Phototherapy of skin (procedure) 025 12:00 am UTC Phototherapy of skin (procedure) 025 12:00 am UTC Phototherapy of skin (procedure) 025 12:00 am UTC Phototherapy of skin (procedure) 025 12:00 am UTC Phototherapy of skin (procedure) 025 12:00 am UTC Phototherapy of skin (procedure) 025 12:00 am UTC Phototherapy of skin (procedure) 025 12:00 am UTC Phototherapy of skin (procedure) 025 12:00 am UTC Phototherapy of skin (procedure) 025 12:00 am UTC Phototherapy of skin (procedure) 025 12:00 am UTC Phototherapy of skin (procedure) 025 12:00 am UTC Phototherapy of skin (procedure) 025 12:00 am UTC Phototherapy of skin (procedure) 025 12:00 am UTC Phototherapy of skin (procedure) 025 12:00 am UTC Phototherapy of skin (procedure) 025 12:00 am UTC Phototherapy of skin (procedure) 025 12:00 am UTC Phototherapy of skin (procedure) 025 12:00 am UTC Phototherapy of skin (procedure) 025 12:00 am UTC Phototherapy of skin (procedure) 025 12:00 am UTC Phototherapy of skin (procedure) 025 12:00 am UTC Phototherapy of skin (procedure) 025 12:00 am UTC Phototherapy of skin (procedure) 025 12:00 am UTC Phototherapy of skin (procedure) 025 12:00 am UTC Phototherapy of skin (procedure) 025 12:00 am UTC Phototherapy of skin (procedure) 025 12:00 am UTC Phototherapy of skin (procedure) 025 12:00 am UTC Phototherapy of skin (procedure) 025 12:00 am UTC Phototherapy of skin (procedure) 025 12:00 am UTC Phototherapy of skin (procedure) 025 12:00 am UTC Phototherapy of skin (procedure) 025 12:00 am UTC Phototherapy of skin (procedure) 025 12:00 am UTC Phototherapy of skin (procedure) 025 12:00 am UTC Phototherapy of skin (procedure) 025 12:00 am UTC Phototherapy of skin (procedure) 025 12:00 am UTC Phototherapy of skin (procedure) 024 12:00 am UTC Phototherapy of skin (procedure) 024 12:00 am UTC Phototherapy of skin (procedure) 024 12:00 am UTC Phototherapy of skin (procedure) 024 12:00 am UTC Phototherapy of skin (procedure) 024 12:00 am UTC Phototherapy of skin (procedure) 024 12:00 am UTC Phototherapy of skin (procedure) 024 12:00 am UTC Phototherapy of skin (procedure) 024 12:00 am UTC Phototherapy of skin (procedure) 024 12:00 am UTC Phototherapy of skin (procedure) 024 12:00 am UTC Phototherapy of skin (procedure) 024 12:00 am UTC Phototherapy of skin (procedure) 024 12:00 am UTC Phototherapy of skin (procedure) 024 12:00 am UTC Phototherapy of skin (procedure) 024 12:00 am UTC Phototherapy of skin (procedure) 024 12:00 am UTC Phototherapy of skin (procedure) 024 12:00 am UTC Phototherapy of skin (procedure) 024 12:00 am UTC Phototherapy of skin (procedure) 024 12:00 am UTC Phototherapy of skin (procedure) 024 12:00 am UTC Phototherapy of skin (procedure) 024 12:00 am UTC Phototherapy of skin (procedure) 024 12:00 am UTC Phototherapy of skin (procedure) 024 12:00 am UTC Phototherapy of skin (procedure) 024 12:00 am UTC Phototherapy of skin (procedure) 024 12:00 am UTC Phototherapy of skin (procedure) 024 12:00 am UTC Phototherapy of skin (procedure) 024 12:00 am UTC Phototherapy of skin (procedure) 024 12:00 am UTC Phototherapy of skin (procedure) 024 12:00 am UTC Phototherapy of skin (procedure) 024 12:00 am UTC Phototherapy of skin (procedure) 024 12:00 am UTC Phototherapy of skin (procedure) 024 12:00 am UTC Phototherapy of skin (procedure) 024 12:00 am UTC Phototherapy of skin (procedure) 024 12:00 am UTC Phototherapy of skin (procedure) 024 12:00 am UTC Phototherapy of skin (procedure) 024 12:00 am UTC Phototherapy of skin (procedure) 024 12:00 am UTC Phototherapy of skin (procedure) 024 12:00 am [place] Phototherapy of skin (procedure) 024 12:00 am UTC Phototherapy of skin (procedure) 024 12:00 am UTC Phototherapy of skin (procedure) 024 12:00 am [facility] Injection of triamcinolone (procedure) 0 09/24/2023 12:00 am UTC Cryotherapy of skin lesion with liquid n itrogen (procedure) 03/07/2021 12:00 am [facility] Cryotherapy of skin lesion with liquid n itrogen (procedure) 09/28/2020 12:00 am [facility] Documentation of past medical history (p rocedure) Documentation of past medical history (p rocedure) Review Of Systems No Data Assessment 1.PsoriasisPhototherapy Treatment: Comments on Previous Treatment - 1 min to each site increase by 1 min each time pt comes in; Total Body Time - 3 min to each site; Skin Type - I; Protocol - Photochemotherapy: Mineral Oil and NBUVB; Total Treatment Time - 3 min to each site; Changes in Treatment Protocol - Smg pt; Treatment Number - 91; Location (Body Touches will Override) - chest, legs, face, back, and arms; Total Body Energy - 3 min to each site- bi lat for arms , bi lat rocha, lower back scalp forehead chest; Render Post-care in the Note - no. Plan of Care Code Detail Instructions 084572 clobetasol 0.05 % topical foam c lobetasol 0.05% / calcipotriene 0.005% foam. Apply twice daily to areas of psoriasis as needed. 259395 pimecrolimus 1 % topical cream A pply BID to affected areas of psoriasis on the face PRN. 376740 pimecrolimus 1 % topical cream A pply BID to affected areas of psoriasis on the face PRN. 161734 clobetasol 0.05 % topical cream Apply BID PRN to psoriasis on right leg until clear. 316455 clobetasol 0.05 % topical foam c lobetasol 0.05% / calcipotriene 0.005% foam. Apply twice daily to areas of psoriasis as needed. 439895 clobetasol 0.05 % topical foam c lobetasol 0.05% / calcipotriene 0.005% foam. Apply twice daily to areas of psoriasis as needed. betamethasone alanis te 0.1 % topical cream Apply BID PRN to eyelids 666603 pimecrolimus 1 % topical cream A pply BID to affected areas of psoriasis on the face PRN. 579055 betamethasone diprop ionate 0.05 % lotion Apply BID to scalp for up to two weeks at a time. 986746 calcipotriene 0.005 % scalp solu tion Apply to scalp once daily every other day 545184 pimecrolimus 1 % topical cream A pply BID to affected areas of psoriasis on the face PRN. 6598301 Enstilar 0.005 %-0.064 % topical foam Apply AM and PM to areas of psoriasis lower right leg and scalp 103875 betamethasone diprop ionate 0.05 % lotion Apply BID to scalp for up to two weeks at a time. betamethasone alanis te 0.1 % topical cream Apply BID PRN to eyelids 508578 Elidel 1 % topical cream Apply B ID to affected areas of psoriasis on the face PRN. 9634143 Enstilar 0.005 %-0.064 % topical foam Apply AM and PM to areas of psoriasis lower right leg and scalp 19821014 calcipotriene 0.005 % topical oi ntment Apply BID as needed for psoriasis on the legs 604624 calcipotriene 0.005 % scalp solu tion Apply BID to scalp PRN. 239514 clobetasol 0.05 % topical ointme nt Apply BID PRN to worst areas of psoriasis on legs betamethasone alanis te 0.1 % topical cream Apply BID PRN to eyelids [id number] calcipotriene 0.005 % scalp solu tion Apply BID to scalp PRN [id number] clobetasol 0.05 % scalp solution Apply twice daily for two weeks on, one week off for active rash on scalp until clear. [id number] Elidel 1 % topical cream Apply B ID to affected areas of psoriasis on the face PRN. [id number] clobetasol 0.05 % scalp solution Apply twice daily for two weeks on, one week off for active rash on scalp until clear. [id number] calcipotriene 0.005 % topical oi ntment Apply BID as needed for psoriasis on the legs [id number] Elidel 1 % topical cream Apply B ID to affected areas of psoriasis on the face PRN. Instructions No Data Social History Code Activity Start Date End Date [id number] [facility] Never smoker Sex female Sexual orientation Unspecified Gender identity Unspecified Vital Signs No data
== END 2024-12-02 08:53 | disposition home or self-care (01) ==
LOC: HO.US 08:52
PROVIDERS: PCP Family Medicine; Visit Provider Nurse Practitioner Family
DX: N20.0 Calculus of kidney (principal)
CPT/HCPCS: 76775

== ENCOUNTER → 2024-12-02 08:54 | Outpatient (BNV) | payer MEDICARE, OTHER, SELFPAY | PROVIDERS: PCP Family Medicine; Visit Provider Student in an Organized Health Care Education/Training Program | DX: N28.1 Cyst of kidney, acquired (principal) | CPT/HCPCS: 76775 ==

== ENCOUNTER 2024-12-14 09:25 | Outpatient (AMB) | payer MEDICARE, OTHER, SELFPAY ==
--- NOTE | 2024-12-14 09:26 | MHC.OFFVIS ---
Intake Visit Reasons: 1y/US Intake Note: Patient is present for 1Y/US Urology Medication:VITAMIN B6 Antibiotic Allergy:SULFA,DICLOXACILLIN Blood Thinner:NONE Silk Screen Cutter Required: No Allergies abacavir Allergy (Unknown, Verified 12/14/24 10:02) Unknown dicloxacillin (Dicloxacillin) Allergy (Unknown, Verified 12/14/24 10:02) UNKNOWN Sulfa (Sulfonamide Antibiotics) Allergy (Unknown, Verified 12/14/24 10:02) RASH Medication List - Last Reconciled 12/14/24 by KAREEM ColemanP- amlodipine 10 mg PO DAILY fluticasone propionate 50 mcg/actuation 1 spray intranasal BID PRN lorazepam 1 tab PO DAILY losartan 1 tab PO DAILY metoprolol succinate ER 75 mg PO DAILY multivitamin 1 tab PO DAILY nortriptyline 1 cap PO BEDTIME omega 8-btm-aqa-fish oil 1,000 (120-180) mg (Fish Oil) 1 cap PO DAILY omeprazole 1 cap PO DAILY@0630 pyridoxine (vitamin B6) 50 mg (1/2 x 100 mg) PO DAILY 90 days simvastatin 1 tab PO BEDTIME HPI Comments Details: Lidia is a pleasant 74 year old female patient of Dr. Almaraz. She has a past medical history of migraines, breast cysts, angiolipoma of kidney, hypercholesteremia, hypertension, nephrolithiasis, and diverticulitis. She presents to the office today for follow-up of her nephrolithiasis and renal cyst. In discussion with the patient today she reports to be doing and feeling well. She denies having had any bothersome urinary issues or concerns since her last office visit here approximately 9 months ago. Used to be recent renal imaging results reviewed with the patient today. Bilateral kidneys are normal in size and echotexture. No collecting system dilatation of either kidney. Normal color Doppler. Small bilateral renal cysts otherwise unremarkable per radiology report. In office urinalysis results reviewed with the patient today. When asked she denies urinary urgency, urinary frequency, incontinence, nocturia, hematuria, dysuria, foul smelling urine, changes to urinary stream, flank pain, fever, and or chills. She is happy with her current voiding parameters. When asked she reports compliance with vitamin B6 as prescribed in attempts to drink plenty of water daily. She otherwise offers no other bothersome urinary issues or concerns. [facility] Medical History Migraine Breast cyst Angiomyolipoma of kidney High cholesterol HTN (hypertension) GI bleed Kidney stone Diverticulitis Surgical History Hx of tonsillectomy Hx of colectomy Hx of appendectomy Social History Patient Tobacco Use Status: Never used Tobacco Advance Directives Date on File: 07/09/21 Review of Systems Const All systems reviewed & are unremarkable except as noted in HPI and below Reports as per HPI Eyes Reports no additional complaints ENT Reports no additional complaints Card Reports no additional complaints Resp Reports no additional complaints GI Reports no additional complaints Reports as per HPI Musc Reports no additional complaints Neuro Reports no additional complaints Psych Reports no additional complaints Endo Reports no additional complaints Brody/Lymph Reports no additional complaints Aller/Immun Reports no additional complaints Physical Exam Const General: cooperative, healthy appearing, comfortable, no acute distress, well developed, alert and awake Orientation/consciousness: patient oriented x3 Limitations: no limitations HEENT Head: Yes normal to inspection and Yes normocephalic Ears: hearing grossly normal bilaterally Eyes General: appearance normal, both eyes and all related structures Neck Neck: Yes normal visual inspection and Yes trachea midline Chest Chest palpation & inspection: normal inspection of the chest Resp Effort & Inspection: normal respiratory effort and able to speak in complete sentences Cardio Rate: regular rate General: Yes no CVA tenderness Back/Spine/Pelvis Back: no CVA tenderness Neuro General: patient oriented x3 and gait normal Extrem General: Yes normal to inspection Psych Appearance: grossly normal and well kempt Mental Status: mental status grossly normal Speech and movement: Normal speech and movement present and Clear speech present Affect: normal affect Attitude: cooperative Thought process: Normal thought process present Thought content: Normal thought content present Insight: Fair insight present (Psych) Judgement: Fair judgement present (Psych) Results AMB Urinalysis, Automated UA Leukoctes 70 Vijay/uL Last Edit by NEO Hines on 12/14/24 09:42 UA Nitrite Negative Last Edit by NEO Hines on 12/14/24 09:42 UA Urobilinogen 0.2 mg/dL Last Edit by NEO Hines on 12/14/24 09:42 UA Protein 0 mg/dL Last Edit by NEO Hines on 12/14/24 09:42 UA pH 6.0 Last Edit by NEO Hines on 12/14/24 09:42 UA Blood 0 Clovis/uL Last Edit by NEO Hines on 12/14/24 09:42 UA Specific Emery 1.005 Last Edit by Nimesh Lanza CCM on 12/14/24 09:42 UA Ketone Negative Last Edit by NEO Hines on 12/14/24 09:42 UA Bilirubin 0 mg/dL Last Edit by NEO Hines on 12/14/24 09:42 UA Glucose 100 mg/dL Last Edit by NEO Hines on 12/14/24 09:43 UA Glucose previously reported as 0 Nimesh Lanza 12/14/24 09:43 Results Reviewed Results Reviewed: Laboratory Last Values Urine pH (Auto) 6.0 12/14/24 09:41 Specific Emery (Auto) 1.005 12/14/24 09:41 Urine Protein (Auto) 0 mg/dL 12/14/24 09:41 Glucose (UA)(Auto) 100 mg/dL 12/14/24 09:41 Urine Ketones (Auto) Negative 12/14/24 09:41 Urine Blood (Auto) 0 Cl[place]is/uL 12/14/24 09:41 Urine Nitrite (Auto) Negative 12/14/24 09:41 Urine Bilirubin (Auto) 0 mg/dL 12/14/24 09:41 Urine Urobilinogen (Auto) 0.2 mg/dL 12/14/24 09:41 Leukocyte Esterase (Auto) 70 Vijay/uL 12/14/24 09:41 Date of Service: 12/02/24 Procedure(s): US renal BI Findings: Right kidney normal size and echotexture, 9.1 cm length. Small upper pole cysts measuring 0.5 x 0.4 x 0.6 cm Left kidney normal size and echotexture, 10.5 cm length. Pole cysts measuring 1.5 x 1.0 x 1.0 cm No collecting system dilatation of either kidney. Normal color Doppler. IMPRESSION: 1. Small bilateral renal cysts, otherwise unremarkable. No evidence of hydronephrosis or nephrolithiasis. Assessment & Plan Assessment & Plan (1) Renal cysts, acquired, bilateral: Code(s): N28.1 - Cyst of kidney, acquired Category: Medical (2) Kidney stone: Code(s): N20.0 - Calculus of kidney Category: Medical Plan In office urinalysis results reviewed with the patient today; as noted above. Recent renal imaging results reviewed with the patient today; as noted above. Discussed importance of adequate hydration relation to nephrolithiasis as well as overall health and well-being. Continue vitamin B6 as discussed and prescribed. Continue adding 1 oz of lemon juice to water daily. Patient currently denies any bothersome urinary issues. She reports be happy with current voiding parameters. Will obtain renal ultrasound in 6 months Follow-up in 6 months with imaging to be completed prior; or sooner with any issues, concerns, and or questions. Orders: Orders US renal BI 6 Months N20.0 - Calculus of kidney AMB Urinalysis Automated Today Z13.9 - Encounter for screening, unspecified Patient Instructions: The patient had an opportunity to ask questions regarding the treatment plan. All questions were answered. Physical exam, labs, and imaging were discussed and reviewed in detail. As well as risks, benefits, and discussion of treatment choices. No major barriers to understanding were identified. The patient expressed understanding and agreement with the above treatment plan. The patient was made aware they should contact our office by phone for worsening of their current condition, the appearance of new symptoms, or with any questions or concerns. Compliance is encouraged with any medications and follow up testing that is ordered. It is a privilege to be allowed the opportunity to participate in? your urological care.? Again, if you have any questions or concerns If you have any questions or concerns please do not hesitate to contact me. The office is [phone]. This note is constructed using voice recognition software. While every effort has been made to ensure accuracy flowers salesperson errors may have been included. Yours sincerely, VAZQUEZ Coleman Coding Level of Care Code Est Pt Level 3 (29445) Diagnoses Renal cysts, acquired, bilateral N28.1 Kidney stone N20.0
== END 2024-12-14 10:06 | disposition home or self-care (01) ==
LOC: HO.HUSH 09:25
PROVIDERS: PCP Family Medicine; Visit Provider Nurse Practitioner Family
DX: N28.1 Cyst of kidney, acquired (principal); N20.0 Calculus of kidney; Z13.9 Encounter for screening, unspecified
CPT/HCPCS: 99213

== ENCOUNTER → 2024-12-14 09:25 | Outpatient (BNVA) | payer MEDICARE, OTHER, SELFPAY | PROVIDERS: PCP Family Medicine; Visit Provider Nurse Practitioner Family | DX: N20.0 Calculus of kidney (principal); N28.1 Cyst of kidney, acquired | CPT/HCPCS: 81003; 99212 ==

== ENCOUNTER 2025-04-11 07:07 | Inpatient (IN) | payer MEDICARE, OTHER, SELFPAY ==
[2025-04-11] VITALS (7 sets, daily range): BP systolic 151–190; BP diastolic 62–90; PULSE 93–107; RESP 15–20; TEMP 36.4–36.7; O2SAT 92–98; BMI 32.0
--- NOTE | ~2025-04-11 | CT_ITS ---
CLINICAL HISTORY: Stroke Protocol --- Additional Notes or Special Instructions: L sided symptoms CT head without contrast Comparison: None provided Findings: No intra-axial mass, midline shift, hydrocephalus, or acute hemorrhage. There is moderate diffuse atrophy.. The visualized paranasal sinuses and mastoid air cells are normal. The orbits are within normal limits. No skull fracture. IMPRESSION: 1. No acute intracranial findings. This document has been electronically signed by: Anatoliy Michelle MD on 04/11/2025 07:33:30
--- NOTE | ~2025-04-11 | MR_ITS ---
EXAMINATION: MR BRAIN WITHOUT IV CONTRAST HISTORY: r/o acute CVA TECHNIQUE: Sagittal T1, and axial T1, FLAIR, T2, gradient echo, and diffusion weighted MR images of the brain were obtained. COMPARISON: Correlation is made with a CT of the brain without contrast performed earlier in the day. FINDINGS: The pituitary is normal in size. The cerebellar tonsils are normally located. There is diffuse prominence of the ventricular system and cortical sulci, consistent with atrophy. Periventricular and subcortical white matter hyperintensities are noted on the FLAIR and T2-weighted images which are nonspecific, but often seen in the setting of small vessel ischemic disease. There is a small focus of restricted diffusion in the right posterior frontal lobe consistent with an acute infarct. There is no mass effect or midline shift. There is a small focus of hemosiderin in the left frontal lobe. There is no evidence of acute intracranial hemorrhage. Normal vascular flow voids are noted in the basilar and carotid arteries. The visualized paranasal sinuses are clear. MR/MR head/brain wo con IMPRESSION: Small acute infarct of the right posterior frontal lobe. Findings were sent to Dr. Bubba Hoang by secure text message on 04/11/2025 at 3:24 PM and immediately acknowledged as read. Electronically signed by: Joe Terry MD 04/11/2025 03:26 PM [facility]
--- NOTE | ~2025-04-11 | CT_ITS ---
CLINICAL HISTORY: Stroke Protocol --- Additional Notes or Special Instructions: L sided deficits CT angiography head and neck with contrast. 3D Postprocessing. Comparison: None provided Findings: Aortic arch and cervical great vessels are patent with no aneurysm, dissection, hemodynamically significant stenoses, or occlusion. Intracranial arteries are patent. No aneurysm, dissection, hemodynamically significant stenoses, or occlusion. No abnormal intracranial enhancement. The visualized thyroid gland is unremarkable. No cervical mass or fluid collection. Lung apices clear. No acute fracture. IMPRESSION: Patent head and neck CTA. This document has been electronically signed by: Anatoliy Michelle MD on 04/11/2025 08:06:19
--- NOTE | 2025-04-11 07:10 | ECG_ITS ---
Test Reason : weakness Blood Pressure : */* mmHG Vent. Rate : 101 BPM Atrial Rate : 101 BPM P-R Int : 190 ms QRS Dur : 74 ms QT Int : 352 ms P-R-T Axes : 53 -22 74 degrees QTcB Int : 456 ms Sinus tachycardia Moderate voltage criteria for LVH, may be normal variant ( R in aVL , [place] product ) Possible Lateral infarct , age undetermined Abnormal ECG When compared with ECG of 08-Jan-2021 12:26, Borderline criteria for Lateral infarct are now Present Referred By: Gail Montoya Electronically Signed By: ALVERTO SANCHEZ
[2025-04-11 07:15] LABS: Glucose, Whole Blood 177 mg/dL (60-115)
--- NOTE | 2025-04-11 07:19 | ED_ITS ---
HPI - Neuro Symptoms/Deficit General Chief Complaint: Stroke Stated Complaint: ?STROKE,L WEAK/DROOP,-THINNERS PER EMS Time Seen by Provider: 04/11/25 07:10 Source: patient, EMS and old records reviewed Mode of arrival: EMS Limitations: no limitations History of Present Illness ED Provider: TARA HPI Narrative: 74-year-old female with past medical history of hypertension, migraines, hyperlipidemia, anxiety, GI bleed, GERD not on blood thinners here with complaint of going to bed normal at 23:30 last night. She notes she never got up to use the bathroom during the night. When she woke at 06:15 she states suddenly felt off when her left arm she states it felt tingly and she could not hold her cup. She also has a headache on the left side. EMS called her in as a stroke alert with last known well at 06:15. Upon asking questions in front of EMS and nurse Anushka it was revealed that when she woke up she noted she was not 100% herself and her last known well was 23:30. She denies any recent illness or trauma. She has no history of AFib Onset (ago): day(s) (Last known well at 23:30) Last Observed Normal: 11:30 Location: left face and left arm History of same: No Severity: mild Quality: weak, numb and tingling Relieving factors: none Exacerbating factors: none Context: other (Notes she woke up with symptoms) Associated symptoms: headaches Treatments Prior to Arrival: none Related Data Home Medications ?Medication ?Instructions ?Recorded ?Confirmed fluticasone propionate 50 1 spray intranasal BID PRN A llergy 07/14/20 12/14/24 mcg/actuation nasal Symptoms spray,suspension lorazepam 0.5 mg tablet 1 tab PO DAILY 07/14/2006/08 losartan 50 mg tablet 1 tab PO DAILY 07/14/2006/08 metoprolol succinate 50 mg 75 mg PO DAILY 07/14/2006/08 tablet,extended release 24 hr nortriptyline 25 mg capsule 1 cap PO BEDTIME 07/14/20 12/14/24 omega 8-dpa-axv-fish oil 1,000 mg 1 cap PO DAILY 07/1412/14/24 (120 mg-180 mg) capsule (Fish Oil) omeprazole 20 mg capsule,delayed 1 cap PO DAILY@0630 0 07/14/20 12/14/24 release simvastatin 20 mg tablet 1 tab PO BEDTIME 07/14/20 amlodipine 10 mg tablet 10 mg PO DAILY 02/14/2306/08 multivitamin 1 tab PO DAILY 02/14/2306/08 Previous Rx's ?Medication ?Instructions ?Recorded pyridoxine (vitamin B6) 100 mg 50 mg (1/2 x 100 mg) PO DAILY 01/11/25 tablet days #45 tabs Allergies Allergy/AdvReac Type Severity Reaction Status Date / Time abacavir Allergy Unknown Unknown Verified 04/11/25 07:43 dicloxacillin (Dicloxacillin) Allergy Unknown UNKNOWN Verified 04/11/25 07:43 Sulfa (Sulfonamide Allergy Unknown RASH Verified 04/11/25 07:43 Antibiotics) Review of Systems 2 Review of Systems: Yes all other systems are reviewed and are negative PMFSH Past Medical History Attestation statement: The following information was validated with the patient. Source: old records reviewed Medical History Migraine Breast cyst Angiomyolipoma of kidney High cholesterol HTN (hypertension) GI bleed Kidney stone Diverticulitis Surgical History Hx of tonsillectomy Hx of colectomy Hx of appendectomy Social History Social History Patient Tobacco Use Status: Never used Tobacco Advance Directives: Yes Advance Directives on File: Yes Advance Directives Date on File: 07/09/21 Physical Exam 2 Vital Signs: Vital Signs: Last Vital Signs Temp 98.1 F 04/11/25 07:48 Pulse 103 H 04/11/25 07:48 Resp 18 04/11/25 07:48 BP 167/62 H 04/11/25 07:48 Pulse Ox 95 04/11/25 07:48 O2 Del Method Room Air 04/11/25 07:48 BMI result Body Mass Index 32.0 Appearance: Alert. Oriented X3. mild acute distress. Eyes: Pupils equal, round and reactive to light. ENT: Pharynx normal. Neck: Normal inspection. Neck supple. CVS: Normal heart rate and rhythm. Pulses normal. Respiratory: No respiratory distress. Breath sounds normal. Abdomen: Soft and nontender. Skin: Skin warm and dry. Normal skin color. Normal skin turgor. Extremities: No lower extremity edema. Neuro: Oriented X 3. Mild left lower face droop but smile is symmetric, she has drift to the left upper extremity, sensation intact. Course Course Course Narrative: 7:32 AM 04/11/2025 (TARA VICTOR): NIH is 1 her facial droop is improving she notes some tingling left in the fingers. But she has sensation in the arm. Her facial droop is not evident anymore. She has very minimal drift of the left upper extremity. Her headache is resolved Medications Administered Discontinued Medications Generic Name Dose Route Start Last Admin Trade Name Freq PRN Reason Stop Dose Admin Aspirin 162 mg 04/11/25 08:12 04/11/25 08:25 Aspirin 81 Mg Tab.Chew PO 04/11/25 08:13 162 mg ONCE ONE Administration Iohexol 100 ml 04/11/25 07:32 04/11/25 07:33 Iohexol 350 Mg/Ml 100 Ml Infus..Btl IV 04/11/25 07:33 70 ml ONCE ONE Administration Medical Decision Making Medical Decision Making [facility] Narrative: 74-year-old female with past medical history of hypertension, migraines, hyperlipidemia, anxiety, GI bleed, GERD not on blood thinners here with complaint of going to bed normal at 23:30 then waking up with left-sided numbness and tingling as well as weakness. On arrival it was elicited that she woke up abnormal and did not wake up during the middle of the night to use the bathroom. She also has a headache. She is out of the window for TNK given last known well was 11 30 p.m. I am going to put her through the stroke protocol including LDL. She would be a candidate for potential thrombectomy if proximal occlusion was found. We will continue to monitor closely. Differential Diagnosis Differential Diagnoses: The differential diagnosis associated with the presentation includes Stroke, complex migraine, TIA Admission/Observation Consideration of admission/observation: Escalation of care including admission/observation considered Will admit for further stroke workup Consult Healthcare Provider Management of the patient was discussed with: Hospitalist (Will admit) Lab Data [facility] Lab Attestation statement: I reviewed the patient's lab results. 04/11/25 07:15 04/11/25 07:15 Labs: Lab Results 04/11/25 04/11/25 Range/Units 07:11 07:15 WBC 6.0 (4.8-10.8) X10*3/uL RBC 4.89 (4.20-5.50) X10*6/uL Hgb 14.8 (12.0-16.0) g/dl Hct 43.5 (37.0-47.0) % MCV 89.0 (80.0-98.0) fL MCH 30.3 (27.0-33.0) pg MCHC 34.0 (31.0-35.0) g/dl RDW 12.3 (11.0-16.0) % Plt Count 226 (160-400) X10*3/uL MPV 9.1 L (9.4-12.3) fL Immature Gran % (Auto) 0.2 (0.0-0.4) % Neut % (Auto) 58.1 (45-73) % Lymph % (Auto) 30.4 (20-40) % Pickett % (Auto) 7.3 (2-11) % Eos % (Auto) 3.0 (0-4) % Baso % (Auto) 1.0 (0-2) % Lymph # (Auto) 1.8 (1.2-4.9) X10*3/uL Pickett # (Auto) 0.4 (0.1-1.2) X10*3/uL Eos # (Auto) 0.2 (0.0-0.4) X10*3/uL Baso # (Auto) 0.1 (0.0-0.2) X10*3/uL Abs Immat Gran (auto) 0.01 (0.00-0.03) X10*3/uL Absolute Neuts (auto) 3.5 (2.0-8.3) x10*3/uL Absolute Nucleated RBC 0.000 (0.0-0.012) X10*3/uL Nucleated RBC % (auto) 0.0 (0.0-0.2) /100WBC Hold Purple Top SEE NOTE PT 11.1 L (11.2-13.5) SEC INR 0.9 (0.9-1.1) APTT 28.7 (26.7-34.1) SEC Sodium 141 (135-145) mmol/L Potassium 3.7 (3.3-5.1) mmol/L Chloride 108 (96-108) mmol/L Carbon Dioxide 24 (22-29) mmol/L Anion Gap 13 (12-20) BUN 21 H (9-16) mg/dL Creatinine 0.74 (0.5-1.4) mg/dL Estim Creat Clear Calc TNP Estimated GFR > 60 POC Glucose 177 H (60-115) mg/dL Random Glucose 198 H (60-115) mg/dL Estimat Average Glucose 131 mg/dL Hemoglobin A1c % 6.2 H (<6.0) % Calcium 9.3 (8.4-10.2) mg/dL Troponin I High Sens 5.9 (<3.5-17.0) ng/L Triglycerides 154 H (<150) mg/dL Cholesterol 138 (<200) mg/dL LDL Cholesterol, Calc 66 (<100) mg/dL HDL Cholesterol 42 (>40) mg/dL Independent Interpretation I performed an independent interpretation of an: EKG and CT Scan (No intracranial hemorrhage, no LVO) Interpretation: Rate: 101 Rhythm: Sinus tachycardia [place]: Left, LVH Normal P waves. Normal JACOB. Normal QRS complex. ST T wave : No ST-elevation there is significant artifact but it is regular qTC: 456 prior studies: Artifact The study has been interpreted contemporaneously by me. . Radiology Impression Discussion of test interpretation with radiology: I discussed test interpretation with the radiologist and I have reviewed the radiologist's reading. Independent Historian Clinical information obtained from an independent historian. History obtained from or confirmed by: EMS External Record Review External record reviewed: Outpatient record and Prior outpatient labs NIH Stroke Scale Internal: Initial- Upon Arrival Level of Consciousness: Alert Level of Consciousness Questions: Answers both questions correctly Level of Consciousness Commands: Performs both tasks correctly Best Gaze: Normal Visual: No visual loss Facial Palsy: Minor paralyis Motor Arm (Right): No drift Motor Arm (Left): Drift Motor Leg (Right): No drift Motor Leg (Left): No drift Limb Ataxia: Absent Sensory: Mild to moderate sensory loss Best Language: No aphasia Dysarthia: Normal Extinction and Inattention: No abnormality Score: 3 Critical Care Time Critical Care Time Critical Care Time: Yes Total Critical Care Time: 35 Attestation: Time is exclusive of separately billable procedures. Time includes: direct patient care, patient reassessment, coordination of patient care, interpretation of data (laboratory data, pulse oximetry, CT scan with stroke protocol), review of patient's medical records, medical consultation and documentation of patient care. Procedures excluded from critical care time: electrocardiography. I attest to this time spent taking care of the patient Discharge Plan Discharge Clinical Impression: Left arm weakness, Paresthesia Patient Disposition: Admitted As Inpatient Print Language: Belarusian
[2025-04-11 07:21] LABS: MANUAL DIFF FLAG NO
[2025-04-11 07:23] LABS: Hematocrit 43.5 % (37.0-47.0); Hemoglobin 14.8 g/dl (12.0-16.0); Imm Gran Abs Auto 0.01 X10*3/uL (0.00-0.03); Imm Gran Pct Auto 0.2 % (0.0-0.4); Lymphocytes Absolute Auto 1.8 X10*3/uL (1.2-4.9); Mean Corpuscular HGB Conc 34.0 g/dl (31.0-35.0); Mean Corpuscular Hemoglobin 30.3 pg (27.0-33.0); Mean Corpuscular Volume 89.0 fL (80.0-98.0); NRBC Abs Auto 0.000 X10*3/uL (0.0-0.012); NRBC Pct Auto 0.0 /100WBC (0.0-0.2); Platelet Count 226 X10*3/uL (160-400); Red Blood Count 4.89 X10*6/uL (4.20-5.50); White Blood Count 6.0 X10*3/uL (4.8-10.8)
[2025-04-11] MEDS: iohexoL 350 MG/ML 100 ML INFUS..BTL IV (07:33)
[2025-04-11 07:35] LABS: INTERNATIONAL NORM RATIO 0.9 (0.9-1.1); Prothrombin Time 11.1 SEC (11.2-13.5)
[2025-04-11 07:38] LABS: Partial Thromboplastin Time 28.7 SEC (26.7-34.1)
[2025-04-11 07:39] LABS: Stroke Lab Use COMPLETE
[2025-04-11 07:41] LABS: Anion Gap 13 (12-20); Blood Urea Nitrogen 21 mg/dL (9-16); Calcium 9.3 mg/dL (8.4-10.2); Carbon Dioxide 24 mmol/L (22-29); Chloride 108 mmol/L (96-108); Cholesterol 138 mg/dL (<200); Estimated Glomerular Filt Rate > 60; HDL Cholesterol 42 mg/dL (>40); Potassium 3.7 mmol/L (3.3-5.1); Sodium 141 mmol/L (135-145); Triglycerides 154 mg/dL (<150); Troponin-I High Sensitivity 5.9 ng/L (<3.5-17.0)
--- OUTSIDE RECORDS SUMMARY | 2025-04-11 07:51 | XMS_ITS | Data Portability ---
Author Organization [place] [facility], Allergy Address [address] [address] Care Team Providers Care Intake Rn Name Role Phone DEANDRE TINAJERO Primary Care Provider [phone] DEANDRE TINAJERO Referring Provider Assessment Encounter Date Assessment Date Assessment LastModified by Organization Details LastModified Time 05/04/2024 05/04/2024 73-year-old female presents following RMT in office. Right tube is in place and patent. Left middle ear space is well aerated. Audiometric testing shows closure of conductive gap with mild sensorineural hearing loss on the right side. Tympanogram as expected. Follow-up in 6 months for tube check or sooner for acute issue. shani Not available 05/04/2024 11:38:32 09/24/2024 09/24/2024 74-year-old female presents for reevaluation. On examination there is cerumen in the right ear removed without difficulty. There is a small abrasion along the floor of the inferior canal. Recommended a course of ofloxacin for 7 days to aid in healing. Recommended against Q-tip use. Right tube remains in place and patent. Follow-up in 6 months for routine observation. shani Not available 09/24/2024 13:29:01 11/02/2024 11/02/2024 74-year-old female presents for reevaluation. On examination there is no sign of cerumen impaction on either side. Abrasion previously noted on the right side is healed appropriately. TMs normal to inspection. Reassurance was provided. She may keep her follow-up appointment as scheduled. shani Not available 11/02/2024 15:23:04 03/15/2025 03/15/2025 74-year-old female with history of right tympanostomy tube presents for reevaluation. On examination tube is in place and patent. Bilateral middle ear space well aerated. Continue observation and follow-up in 6 months. Not available 03/15/2025 15:48:05 Plan of Treatment Reminders Order Date Submit Date Provider Last Modified By Organization Details Last Modified Time Details Appointments Establish ed 15 2025 01:30P M TROY MARTINEZ PA-C Not available Not available Not available Lab None recorded. Referral None recorded. Procedures None recorded. Surgeries None recorded. Imaging None recorded. Medication Orders ofloxacin 0.3 % ear drops 2024 025 [facility], [address] [facility], [place], [address], 09/24/2024 13:29:44 Patient TargetsNo targets recorded. Patient InstructionsNo instructions recorded. Reason for Referral None Reported. Results Created Date Observation Date Name Description Value Unit Range Abnormal Flag Note LastModifiedBy Organization Detail LastModifiedTime 05/04/19 25 audio gram No observ ation record ed. BARCODE Not Available 2024 14:57:35 Result Notes None recorded. Problems Name Problem SNOMED Code Status Onset Date Resolution Date Notes Provider Name and Address Organization Details Recorded Time Bilateral disorder of Eustachian tubes 9869077314295 107 Active 2023 SHARRON SYKES MD [address] [place] [address], [place], [address], [facility] - [facility] 4 13:16:06 Disorder of right Eustachian tube 6668894154585 103 Active 2023 SHARRON SYKES MD [address] [address], [place], [address], [facility] - [facility] [place] 4 13:16:37 Chronic serous otitis media of right ear 296519423 Active 2023 SHARRON SYKES MD [address] [address], [facility] [place], [address], [facility] - [facility] [place] 4 13:16:56 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 2929610629804 5 Active 2023 Radha vences [place] - [facility] [place] 4 15:26:25 Sensorineur al hearing loss in right ear 0536434565696 0 Active 2024 TONI ABAD, AUD [address] [facility] [address], [place], [address], [place] - [facility] [place] 5 11:07:12 Abrasion of skin of right ear 8996552473282 9106 Active 2024 TROY MARTINEZ PA-C 100 [facility],[address], [place], [address], [place] - [facility] [place] 5 13:29:22 Impacted cerumen of bilateral ears 4445331060781 108 Active 2024 TROY MARTINEZ PA-C 100 [facility],[address], [place], [address], [place] - [facility] [place] 5 15:23:16 Problem Notes None recorded. Procedures Surgical History Date Name Laterality Status Provider Name and Address Organization Details Recorded Time 025 Cerumen removal without microscope right completed TROY MARTINEZ PA-C 100 [facility],[address], [address], [facility] - [facility] [place] 09/24/2024 13:30:22 025 Comp Audio with Tymps - 24442 & 70005 completed TONI ABAD, LIAM 100 [facility],[address], [address], [facility] - [facility] [place] 05/04/2024 11:08:26 024 Comp Audio with Tymps - 73810 & 41251 completed Radha Thibodeaux [place] - [facility] [place] 04/01/2024 15:26:06 024 Myringotomy w/Placement of Tube right completed SHARRON SYKES MD 100 [facility],[address], [address], [place] - [facility] [place] 04/01/2024 16:08:37 024 Fiberoptic Nasopharyngoscopy completed SHARRON SYKES MD [address],[place] [facility], [place], [address], [place] - [facility] 03/01/2024 08:03:55 Removal of tonsils completed SHARRON SYKES MD [address],[place] [facility], [place], [address], [place] - [facility] 02/27/2024 13:07:57 Partial removal of colon completed SHARRON SYKES MD [address],[place] [facility], [place], [address], [place] [facility] 02/27/2024 13:08:06 Dilation and curettage completed SHARRON SYKES MD [address] [facility] [address],[place] [facility], [place], [address], [facility] - [facility] 02/27/2024 13:08:24 Imaging Results None recorded. Procedure Notes None recorded. Medical Equipment None Reported. Allergies Allergen ID Allergen Name Allergen Category Reaction Reaction Severity Criticality Documentation Date Start Date Code Code System Note Provider Name and Address Organization Details Recorded Time 111653 dicloxaci llin sodium medicatio n Not available Not available Not available 03/15/20252014 80857 7 RxNorm Not Available [employer] - prod 5 04:48:45 746765 dicloxaci llin medicatio n hives Not available Not available 03/15/20251998 3356 RxNorm unrec ogniz ed react ion (text : Weal, code: 72730 2003) (from exter nal sourc e) unrec ogniz ed react ion (text : Rash, code: 48585 5008) (from ext nal sourc e) Not Available [employer] - prod 5 04:48:49 129073 Substance with sulfonami de structure and antibacte rial mechanism of action (substanc e) medicatio n hives Not available Not available 03/15/20251998 70619 8003 SNOMED unrec ogniz ed react ion (text : Weal, code: 96571 2003) (from [facility]) unrec tristen ed react ion (text : Rash, code: 76667 5008) (from [facility]) Not Available karlene - [employer] - prod 5 04:48:49 659719 tamsulosi n medicatio n Not available Not available Not available 03/15/2025 37423 RxNorm Not Available [employer]irvin - [employer] - prod 5 04:49:02 Medications Name Sig Start Date Stop Date Status Note LastModified by Organization Details LastModified Time losartan 50 mg tablet TAKE ONE TABLET BY MOUTH EVERY DAY active Not Available Not Available No t Available azithromyci n 250 mg tablet TAKE 2 TABLETS ON FIRST DAY , THEN 1 TABLET DAILY FOR 4 DAYS 04/01 completed Not Available Not Available Not Available benzonatate 200 mg capsule TAKE ONE CAPSULE BY MOUTH THREE TIMES A DAY FOR 10 DAYS 04/01 completed Not Available Not Available Not Available metoprolol succinate ER 50 mg tablet,exte nded release 24 hr TAKE 1 & 1/2 TABLETS BY MOUTH DAILY. active Not Available Not Available No t Available prednisone 20 mg tablet TAKE 1 TABLET BY MOUTH DAILY FOR 7 DAYS; WITH FOOD OR MILK. 02/26 completed Not Available Not Available Not Available pimecrolimu s 1 % topical cream APPLY TWICE A DAY TO AFFECTED AREAS OF PSORIASIS ON THE FACE NEEDED. active Not Available Not Available No t Available clobetasol 0.05 % topical cream APPLY TWO TIMES A DAY NEEDED TO PSORIASIS ON RIGHT LEG UNTIL CLEAR 09/24 completed Not Available Not Available Not Available nortriptyli ne 25 mg capsule TAKE ONE CAPSULE BY MOUTH EVERY DAY active Not Available Not Available No t Available ofloxacin 0.3 % ear drops INSTILL 4 DROPS TWICE DAILY FOR 1 WEEK DIRECTED active Not Available Not Available No t Available lorazepam 0.5 mg tablet TAKE ONE TABLET BY MOUTH DAILY. active Not Available [...] Not Available Not Available No t Available ammonium lactate 12 % topical cream APPLY 1 APPLICATI ON EXTERNALL Y TO AFFECTED AREAS OF DRY SKIN TO FEET EXCEPT FOR BETWEEN TOES TWICE A DAY active Not Available Not Available No t Available pyridoxine (vitamin B6) 100 mg tablet TAKE 1/2 TABLET 50MG) BY MOUTH DAILY active Not Available Not Available No t Available clobetasol 0.05 % topical ointment APPLY A THIN FILM TOPICALLY 1 TO 2 TIMES PER WEEK NEEDED active Not Available Not Available No t Available estradiol 0.01% (0.1 mg/gram) vaginal cream APPLY 1/2' STRIP OF CREAM TO EXTERNAL VULVAR SKIN AND VAGINAL OPENING NIGHTLY FOR 2 WEEKS THEN 2 TIMES A WEEK active Not Available Not Available No t Available methylpredn isolone 4 mg tablets in a dose pack TAKE DIRECTED 04/01 completed Not Available Not Available Not Available albuterol sulfate HFA 90 mcg/actuati on aerosol inhaler INHALE TWO PUFFS BY MOUTH EVERY 4 HOURS active Not Available Not Available No t Available fluticasone propionate 50 mcg/actuati on nasal spray,suspe nsion ADMINISTE R ONE SPRAY INTO EACH NOSTRIL TWICE A DAY active Not Available Not Available No t Available doxycycline hyclate 100 mg tablet TAKE ONE TABLET BY MOUTH TWICE A DAY FOR 10 DAYS; MAY TAKE WITH FOOD TO MINIMIZE ABDOMINAL DISCOMFOR T. 09/24 completed Not Available Not Available Not Available loratadine 10 mg tablet TAKE ONE TABLET BY MOUTH EVERY DAY active Not Available Not Available No t Available risedronate 150 mg tablet TAKE 1 TABLET BY MOUTH EVERY 30 DAYS. TAKE WITH 6 TO 8 OUNCES OF PLAIN WATER, AT LEAST 30 MINUTES BEFORE FIRST FOOD, BEVERAGE, OR MEDICATIO N active Not Available Not Available No t Available Eye Itch Relief 0.025 % (0.035 %) drops INSTILL 1 DROP TO EACH EYE TWO TIMES A DAY NEEDED FOR ALLERGY SYMPTOMS active Not Available Not Available No t Available Paxlovid 300 mg (150 mg x 2)-100 mg tablets in a dose pack FOLLOW PACKAGE INSTRUCTI ONS TAKE 3 TABLETS TWO TIMES A DAY FOR 5 DAYS) 04/01 completed Not Available Not Available Not Available Vitals Date Recorded Body height Body mass index (BMI) Body weight Provider Name and Address Organization Details Last Updated DateTime 11/02/2024 160.02 cm 29.8 kg/m2 43677.52 g Esther Connolly [place] - [facility] 11/02/2024 14:31:51 Date Recorded Body height Body mass index (BMI) Body weight Provider Name and Address Organization Details Last Updated DateTime 03/15/2025 160.02 cm 29.8 kg/m2 92854.52 g Babita Pantoja [place] - [facility] 03/15/2025 15:14:52 Social History None recorded. Functional Status None recorded. Mental Status None recorded. Family History Nothing Reported Notes:mother - htn, [place], hype rlipidemia father-lung cancer Medical History Condition Response Hyperlipidemia Y Arthritis Y Anxiety Y Hypertension Y Gynecological HistoryNo gynecological history recorded. Obstetrics History GPAL:G 0 P 0 0 0 0 Past Encounters Encounter ID Performer Location Encounter Start Date Encounter Closed Date Diagnosis/Indication Diagnosis SNOMED-CT Code Diagnosis ICD10 Code Diagnosis IMO Codes Diagnosis Note [id number] SHARRON SYKES MD [facility] [address] [address] 02/27/2024 12:50:26 02/27/2024 13:31:39 Disorder of right Eustachian tube 3926307013 812778 H69.91 Chronic se analisa otitis media of right ear 534950021 H65.21 [id number] SHARRON SYKES MD [facility] [address] [address] 04/01/2024 14:40:18 04/01/2024 16:17:40 Mixed conductive and sensorineural hearing loss of right ear 5696989291 9105 H90.A31 Chronic se analisa otitis media of right ear 538836599 H65.21 [id number] Liam LARA [facility] [address] [address] 04/01/2024 15:25:38 04/17/2024 08:50:47 Disorder of right Eustachian tube 0505185946 414412 H69.91 Mixed cond uctive and sensorineural hearing loss of right ear 1750087451 9105 H90.A31 Audiologic al evaluation results:Ri ght ear:Modera te sloping to moderately severe mixed hearing loss with excellent word recognitio n.Left ear:Normal through 4 kHz sloping to a mild sensorineu ral hearing loss with excellent word recognitio n. Tympanomet ry:Right Ear:Type BLeft Ear:Type A [id number] TROY MARTINEZ PA-C [facility] [address] [address] 05/04/2024 10:46:27 05/04/2024 11:27:24 Disorder of right Eustachian tube 8407121002 586500 H69.91 Sensorineu ral hearing loss in right ear 5037606213 9100 H90.A21 [id number] LIAM STACK [facility] [address] [address] 05/04/2024 11:06:32 05/05/2024 07:48:00 Sensorineural hearing loss in right ear 1327814729 9100 H90.A21 Audiologic al evaluation results: 05/04/2024 Right ear: Normal sloping to a mild sensorineu ral hearing loss with excellent word recognitio n. Left ear: DNT Tympanomet ry: Right Ear:Type B with large volume Left Ear:DNT [id number] TROY MARTINEZ PA-C [facility] [address] [address] 09/24/2024 12:49:24 09/24/2024 13:12:56 Chronic serous otitis media of right ear 407386594 H65.21 Abrasion o f skin of right ear 1994103666 3719492 S00.411A [id number] TROY MARTINEZ PA-C [facility] [address] [address] 11/02/2024 14:02:07 11/02/2024 14:34:57 Impacted cerumen of bilateral ears 8030854519 870709 H61.23 [id number] TROY MARTINEZ PA-C [facility] [address] [address] 03/15/2025 15:10:20 03/15/2025 15:37:29 Mixed conductive and sensorineural hearing loss of right ear 7390471898 9105 H90.A31 Chronic se analisa otitis media of right ear 940184889 H65.21 Health Concerns Section Related Observation LastModified by Organization Detai ls LastModified Time None Recorded Concern Status LastModified by Organization Details LastModified Time None Recorded Advance Directives Directive None Recorded Payers Insurance Date Sequence Insurance Name Policy Number Policy Shelton Covered Member ID Shelton Member ID Guarantor Name 01/21/2025 2 FOR LIFE () Lidiamichael Mcdonald [id number] Lidiamichael Mcdonald 03/15/2025 1 [place]IC[place]: [id number] Lidiamichael Mcdonald [id number] Lidiamichael Mcdonald Notes Date Note Type Note Provider Name and Address Organization Details Recorded Time 05/04/2024 text/html ROS as noted in the [facility] 73-year-old female presents following RMT in office with Dr. Sykes. Hearing has returned to normal. She has had no further drainage from the ear. RAND GUY MD [address] [place] [address], [phone], [facility] 05/05/2024 07:27:28 09/24/2024 text/html ROS as noted in the [facility] 74-year-old female with history of RMT presents for reevaluation. She has had no ear drainage but has been having some right ear discomfort. Was seen at urgent care and diagnosed with right TMJ. She feels there is something stuck in her ear. Admits to Q-tip use. MICHAEL REINOSO MD [address] [place] [address], [phone], [facility] 09/24/2024 16:59:27 11/02/2024 text/html ROS as noted in the [facility] 74-year-old female presents for reevaluation. Was recently seen for blocked sensation in the right ear and noted to have cerumen impaction bilaterally which was removed. She had a small abrasion of the right canal for which she used ofloxacin. Discomfort has mostly resolved. Recently seen by primary care and told she had left cerumen impaction. RAND GUY MD [address] [place] [address], [phone], [place] - [facility] 11/03/2024 14:02:10 03/15/2025 text/html ROS as noted in the [facility] 74-year-old female with history of RMT presents for reevaluation. No acute issues since her last visit. Denies ear infection or drainage from the ear. RAND GUY MD [address] [place] [address], [phone], [place] - [facility] 03/17/2025 09:01:06 OBGyn Episode No OBEpisode recorded.
--- OUTSIDE RECORDS SUMMARY | 2025-04-11 07:51 | XMS_ITS | Continuity of Care Document ---
Author Organization [place] - [facility], [facility] Address [address] [place] [address] Care Team Providers Care Collection Systems Consultant Name Role Phone DEANDRE TINAJERO Primary Care Provider [phone] DEANDRE TINAJERO Referring Provider Assessment Encounter Date Assessment Date Assessment LastModified by Organization Details LastModified Time 03/15/2025 03/15/2025 74-year-old female with history of right tympanostomy tube presents for reevaluation. On examination tube is in place and patent. Bilateral middle ear space well aerated. Continue observation and follow-up in 6 months. [email or web address] Not available 03/15/2025 15:48:05 Plan of Treatment Reminders Order Date Submit Date Provider Last Modified By Organization Details Last Modified Time Details Appointments Establish ed 15 2025 01:30P M TROY MARTINEZ PA-C Not available Not available Not available Lab None recorded. Referral None recorded. Procedures None recorded. Surgeries None recorded. Imaging None recorded. Medication Orders None recorded. Patient TargetsNo targets recorded. Patient InstructionsNo instructions recorded. Reason for Referral None Reported. Problems Name Problem SNOMED Code Status Onset Date Resolution Date Notes Provider Name and Address Organization Details Recorded Time Bilateral disorder of Eustachian tubes 5482675013827 107 Active 2023 SHARRON SYKES MD [address] [address], [place], [address], [facility] - [facility] 4 13:16:06 Disorder of right Eustachian tube 5423018829603 103 Active 2023 SHARRON SYKES MD [address] [address], [place], [address], [facility] - [facility] 4 13:16:37 Chronic serous otitis media of right ear 240327768 Active 2023 SHARRON SYKES MD [address] [facility],[address] [address], [place], [address], [facility] [place] 4 13:16:56 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 5269487518178 5 Active 2023 Radha vences [place] - [facility] [place] 4 15:26:25 Sensorineur al hearing loss in right ear 5376219114735 0 Active 2024 TONI ABAD, AUD [address] [facility],[address] [address], [place], [address], [facility] - [facility] [place] 5 11:07:12 Abrasion of skin of right ear 6950457542609 9106 Active 2024 TROY MARTINEZ PA-C [address] [facility],[address] [address], [place], [address], [facility] - [facility] [place] 5 13:29:22 Impacted cerumen of bilateral ears 7856249959839 108 Active 2024 TROY MARTINEZ PA-C [address] [facility], [address] [facility] [place], [place], [address], [facility] - [facility] [place] 5 15:23:16 Problem Notes None recorded. Procedures Surgical History Date Name Laterality Status Provider Name and Address Organization Details Recorded Time 025 Cerumen removal without microscope right completed TROY MARTINEZ PA-C [address] [facility],[address], [address], [facility] - [facility] [place] 09/24/2024 13:30:22 025 Comp Audio with Tymps - 98542 & 06001 completed TONI ABAD, LIAM [address] [facility] [place] [address], [place], [address], [place] - [facility] [place] 05/04/2024 11:08:26 024 Comp Audio with Tymps - 11951 & 18727 completed Radha Thibodeaux [place] - [facility] [place] 04/01/2024 15:26:06 024 Myringotomy w/Placement of Tube right completed SHARRON SYKES MD [address] [facility] [place] [address] [place] [address], [address], [facility] - [facility] 04/01/2024 16:08:37 024 Fiberoptic Nasopharyngoscopy completed SHARRON SYKES MD [address] [facility] [place],[address], [address], [facility] - [facility] 03/01/2024 08:03:55 Removal of tonsils completed SHARRON SYKES MD [address] [facility],[address], [address], [facility] - [facility] 02/27/2024 13:07:57 Partial removal of colon completed SHARRON SYKES MD [address] [place] [address],[address], [address], [facility] - [facility] 02/27/2024 13:08:06 Dilation and curettage completed SHARRON SYKES MD [address] [facility],[address], [address], [facility] - [facility] 02/27/2024 13:08:24 Imaging Results None recorded. Procedure Notes None recorded. Medical Equipment None Reported. Allergies Allergen ID Allergen Name Allergen Category Reaction Reaction Severity Criticality Documentation Date Start Date Code Code System Note Provider Name and Address Organization Details Recorded Time 909999 dicloxaci llin sodium medicatio n Not available Not available Not available 03/15/20252014 98240 7 RxNorm Not Available karlene - External Data Service - prod 04:48:45 657955 dicloxaci llin medicatio n hives Not available Not available 03/15/20251998 3356 RxNorm unrec ogniz ed react ion (text : Weal, code: 84053 2004) (from exter nal sourc e) unrec ogniz ed react ion (text : Rash, code: 16647 5008) (from exter nal sourc e) Not Available karlene - External Data Service - prod 5 04:48:49 358322 Substance with sulfonami de structure and antibacte rial mechanism of action (substanc e) medicatio n hives Not available Not available 03/15/20251998 39657 8003 SNOMED unrec ogniz ed react ion (text : Weal, code: 00856 2004) (from exter nal sourc e) unrec ogniz ed react ion (text : Rash, code: 45236 5008) (from exter nal sourc e) Not Available karlene - External Data Service - prod 5 04:48:49 795533 tamsulosi n medicatio n Not available Not available Not available 03/15/2025 19495 RxNorm Not Available [employer] External Data Service - prod 5 04:49:02 [...] Updated DateTime 03/15/2025 160.02 cm 29.8 kg/m2 36148.52 g Babita Pantoja [place] - [facility] 03/15/2025 15:14:52 Social History None recorded. Functional Status None recorded. Mental Status None recorded. Family History Nothing Reported Notes:mother - htn, [place], hype rlipidemia father-lung cancer Medical History Condition Response Hyperlipidemia Y Arthritis Y Anxiety Y Hypertension Y Gynecological HistoryNo gynecological history recorded. Obstetrics History GPAL:G 0 P 0 0 0 0 Past Encounters Encounter ID Performer Location Encounter Start Date Encounter Closed Date Diagnosis/Indication Diagnosis SNOMED-CT Code Diagnosis ICD10 Code Diagnosis IMO Codes Diagnosis Note [id number] TROY MARTINEZ PA-C [facility] [address] [address] 03/15/2025 15:10:20 03/15/2025 15:37:29 Mixed conductive and sensorineural hearing loss of right ear [id number] 9105 H90.A31 Chronic se analisa otitis media of right ear 434547296 H65.21 Health Concerns Section Related Observation LastModified by Organization Detai ls LastModified Time None Recorded Concern Status LastModified by Organization Details LastModified Time None Recorded Payers Encounter Date Sequence Insurance Name Policy Number Policy Shelton Covered Member ID Shelton Member ID Guarantor Name 03/15/2025 2 FOR LIFE () Lidiamichael Mcdonald [id number] Lidia Randall Harry 03/15/2025 1 [place]IC[place] B-[place] [employer] Lidia P Harry [id number] Lidia Videsrick Notes Date Note Type Note Provider Name and Address Organization Details Recorded Time 03/15/2025 text/html ROS as noted in the HPI 74-year-old female with history of RMT presents for reevaluation. No acute issues since her last visit. Denies ear infection or drainage from the ear. RAND GUY MD [address] [place] [address], [address], [place] - [facility] 03/17/2025 09:01:06 OBGyn Episode No OBEpisode recorded.
--- NOTE | 2025-04-11 08:02 | PC.NURSE ---
Patient presented to ED via EMS with stroke alert. Per patient she woke up this morning at 0615 and noticed left hand weakness and numbness. She was previously awake at 2330 last night and was at baseline. Called EMS due to weakness. Noted here to have left hand weakness on exam. Speech does seem mildly slurred. Mild left facial droop on exam. Drift noted in left arm on exam. AOx4. IV established and patient in CT scan.
--- NOTE | 2025-04-11 09:12 | PHA.MEDREC ---
Addendum entered by Minh Sharma PharmD 04/11/25 09:14: reviewed Original Note: Pharmacy Consult ? Medication Reconciliation Pharmacy has completed the medication reconciliation. Spoke with pt and she confirmed her medications. Pt states she has not started the Estraidol cream due to not knowing if it was really going to work or not.
--- NOTE | 2025-04-11 09:24 | PC.NURSE ---
pt is alert and oriented, skin pwd, respirations even and unlabored, pt denies pain at this time, no visible facial droop, speech is slightly slurred but pt states this is her baseline, still having some left sided hand grasp weakness/tingling to the tips of the fingers and very minor arm drift,
--- NOTE | 2025-04-11 09:44 | PM.IMHP ---
History of Present Illness Date of Service: 04/11/25 Chief Complaint: Left arm paresthesias 74-year-old female with past medical history of hypertension, hyperlipidemia, history of kidney stones, history of upper GI bleed and erosive gastritis presented with left upper extremity numbness and weakness. Patient went to bed at 23:30 last night and woke up this morning at 06:15. When she woke up she she did not feel 100% at her baseline, her left hand felt tingly and she was unable to hold the cup. She had a left-sided headache. She called 911, they noted mild left facial droop, speech slightly slurred and left arm drift on examination. CT brain and CTA head and neck showed no acute abnormality, patient treated in ED with aspirin her headache resolved she continued to have left arm numbness and tingling unable to hold a cup due to lack of sensations. Her headache has resolved. Patient denies prior history of TIA or stroke, denies history of smoking or illicit drug use. Patient is compliant with antihypertensives and Zocor. Review of Systems Review of Systems: General no headache no dizziness no fever chills. CVS no chest pain, no palpitation. Respiratory no cough no sob Gastrointestinal no nausea no vomiting, no abdominal pain no urgency no frequency All other system reviewed and are negative [facility] Medical History Migraine Breast cyst Angiomyolipoma of kidney High cholesterol HTN (hypertension) GI bleed Kidney stone Diverticulitis Surgical History Hx of tonsillectomy Hx of colectomy Hx of appendectomy Social History Patient Tobacco Use Status: Never used Tobacco Advance Directives: Yes Advance Directives on File: Yes Advance Directives Date on File: 07/09/21 Do you have a plan to hurt others: No Plan Meds Allergies Allergy/AdvReac Type Severity Reaction Status Date / Time abacavir Allergy Unknown Unknown Verified 04/11/25 07:43 dicloxacillin (Dicloxacillin) Allergy Unknown UNKNOWN Verified 04/11/25 07:43 Sulfa (Sulfonamide Allergy Unknown RASH Verified 04/11/25 07:43 Antibiotics) Active Medications: Current Medications Acetaminophen (Acetaminophen 325 Mg Tablet) 650 mg PO Q6H PRN PRN Reason: Pain, Mild 1-3,fever,headache Aspirin (Aspirin Enteric Coated 81 Mg Tablet.) 81 mg PO DAILY [facility] Atorvastatin Calcium (Atorvastatin Calcium 10 Mg Tablet) 10 mg PO DAILY [facility] Benzonatate (Benzonatate 100 Mg Capsule) 100 mg PO TID PRN PRN Reason: Cough Calcium Carbonate (Calcium Oyster Shell Elemental 500 Mg Tablet) 500 mg PO DAILY [facility] Fluticasone Propionate (Fluticasone Propionate Nasal 16 Gm [place]) 1 spray NOSTRIL-B BID PRN PRN Reason: Allergy Symptoms Lorazepam (Lorazepam 0.5 Mg Tablet) 0.5 mg PO DAILY [facility] Magnesium Hydroxide (Milk Of Magnesia 30 Ml Oral.Susp) 30 ml PO DAILY PRN PRN Reason: Constipation Melatonin (Melatonin 3 Mg Tablet) 6 mg PO BEDTIME PRN PRN Reason: Insomnia Nortriptyline HCl (Nortriptyline Hcl 25 Mg Capsule) 25 mg PO BEDTIME [facility] Omeprazole (Omeprazole 20 Mg Capsule.) 20 mg PO DAILY@0630 [facility] Last Admin: 04/11/25 09:39 Dose: 20 mg Ondansetron HCl (Ondansetron Hcl 4 Mg/2 Ml Vial) 4 mg IVPUSH Q8H PRN PRN Reason: Nausea and Vomiting Polyethylene Glycol (Polyethylene Glycol 3350 17 Gm Powd.Pack) 17 gm PO DAILY PRN PRN Reason: Constipation Pyridoxine HCl (Pyridoxine Hcl (Vitamin B6) 50 Mg Tablet) 50 mg PO DAILY [facility] Home Medications ?Medication ?Instructions ?Recorded ?Confirmed ?Last Taken ?Type fluticasone propionate 50 1 spray intranasal BID PRN Allergy 07/14/20 04/11/25 07/13/20 History mcg/actuation nasal Symptoms spray,suspension lorazepam 0.5 mg tablet 1 tab PO DAILY 07/14/20 04/11/25 04/10/25 History losartan 50 mg tablet 1 tab PO DAILY 07/14/20 04/11/25 04/10/25 History metoprolol succinate 50 mg 75 mg PO DAILY 07/14/20 04/11/25 04/10/25 History tablet,extended release 24 hr nortriptyline 25 mg capsule 1 cap PO BEDTIME 07/14/20 04/11/25 04/10/25 History omega 6-isz-bzj-fish oil 1,000 mg 1 cap PO DAILY 07/14/20 04/11/25 04/10/25 History (120 mg-180 mg) capsule (Fish Oil) omeprazole 20 mg capsule,delayed 20 mg PO DAILY@0630 07/14/20 04/11/25 04/10/25 History release simvastatin 20 mg tablet 1 tab PO BEDTIME 07/14/20 04/11/25 04/10/25 History amlodipine 10 mg tablet 10 mg PO DAILY 02/14/23 04/11/25 04/10/25 History multivitamin 1 tab PO DAILY 02/14/23 04/11/25 04/10/25 History calcium carbonate 500 mg PO DAILY 04/11/25 04/11/25 04/10/25 History clobetasol 0.05 % topical cream 1 appl topical BID PRN Psoriasis 04/11/25 04/11/25 Unknown History on Right leg until resolved Physical Exam Vital Signs and Narrative: Vital Signs: Last Vital Signs Temp 98.0 F 04/11/25 08:51 Pulse 104 H 04/11/25 08:51 Resp 18 04/11/25 08:51 BP 153/67 H 04/11/25 08:51 Pulse Ox 95 04/11/25 08:51 O2 Del Method Room Air 04/11/25 08:51 BMI result Body Mass Index 32.0 Const: Other: General resting comfortably in no acute distress. HEENT:PERRLA Neck supple no JVD. CVS regular rate rhythm, Respiratory lungs clear to auscultation, no respiratory distress, no wheeze, no rhonchi. Gastrointestinal abdomen soft, non tender, bowel sounds audible, no guarding , no rigidity. Extremities no edema. Neuro moving all 4 extremity, speech clear, unable to hold a cup due to lack of sensations, gait not assessed Skin no rash Psych appropriate affect Results Labs 04/11/25 07:15 04/11/25 07:15 Labs: Laboratory Results - last 24 hr 04/11/25 04/11/25 07:11 07:15 MCV 89.0 MCH 30.3 MCHC 34.0 RDW 12.3 Plt Count 226 MPV 9.1 L Immature Gran % (Auto) 0.2 Neut % (Auto) 58.1 Lymph % (Auto) 30.4 [place] % (Auto) 7.3 Eos % (Auto) 3.0 Baso % (Auto) 1.0 Lymph # (Auto) 1.8 [place] # (Auto) 0.4 Eos # (Auto) 0.2 Baso # (Auto) 0.1 Abs Immat Gran (auto) 0.01 Absolute Neuts (auto) 3.5 Absolute Nucleated RBC 0.000 Nucleated RBC % (auto) 0.0 Hold Purple Top SEE NOTE PT 11.1 L INR 0.9 APTT 28.7 Anion Gap 13 Estim Creat Clear Calc TNP Estimated GFR > 60 POC Glucose 177 H Random Glucose 198 H Estimat Average Glucose 131 Hemoglobin A1c % 6.2 H Calcium 9.3 Troponin I High Sens 5.9 Triglycerides 154 H Cholesterol 138 LDL Cholesterol, Calc 66 HDL Cholesterol 42 Assessment and Plan (1) Left arm weakness: Status: Acute (2) Paresthesia: Status: Acute Plan 74-year-old female with multiple risk factors of stroke including age, hypertension, hyperlipidemia presented with headache, left upper extremity paresthesias, initially noted to have slurred speech and left facial droop will be admitted for continued neurological monitoring. Left upper extremity paresthesias. Likely related to TIA/acute CVA CT head/CTA negative for acute stroke Persistent symptoms of paresthesias, slurred speech and headache resolved Continue neuro checks Neurology consultation, PT/OT consultation Aspirin 81 mg daily/Lipitor/avoid low blood pressure UA positive Patient asymptomatic placed on IV ceftriaxone follow urine cultures. History of hypertension on multiple antihypertensives including losartan 50 mg, Norvasc 10 mg and metoprolol 75 mg follow BP closely and avoid hypotension History of hyperlipidemia LDL 66, total cholesterol 138 Place on Lipitor 10 mg at bedtime History of GERD continue Prilosec DVT prophylaxis with Lovenox Full code In my clinical judgment patient required 2 midnight inpatient hospitalization due to persistent neurological deficit requiring neurologic consultation, close neuro monitoring and further testing as per Neurology. Quality Stroke Does the patient have a stroke diagnosis?: No VTE Prior VTE?: No VTE Risk Level:: Medical - moderate - high VTE Device Contraindication: Treatment Not Indicated VTE Drug Contraindication: N/A - Med Ordered
[2025-04-11 10:09] LABS: Appearance Urine Clear; Glucose Urine UA Negative (Negative); PH 7.0 (5.0-9.0); Specific Gravity - Urine 1.025 (1.005-1.025); UMIC TRIGGER UACC YES
[2025-04-11 10:14] LABS: UACC Culture Trigger YES
--- NOTE | 2025-04-11 11:17 | PM.NEUROCN ---
History of Present Illness Data of Consult Service Date: 04/11/25 Primary Care Provider: Karen Almaraz MD [facility] Reason for consult: Left arm weakness and numbness 74-year-old female with past medical history of hypertension, hyperlipidemia, history of kidney stones, history of upper GI bleed and erosive gastritis presented with left upper extremity numbness and weakness. She said that she woke up this morning in her arm was fine later when she tried to do something with it, like cleaning herself, she noted left hand and arm were numb and somewhat tingling like there were asleep. When I saw her in emergency room she still had some of the feeling. There was no associated neck pain or headache. No mental confusion with it. Her not that good and she has not been driving anymore. She said that she was taking care of her finances. No complain of bowel bladder difficulties. Review of Systems Constitutional: Constitutional: Reports as per HPI [facility] Past Medical History Medical History Migraine Breast cyst Angiomyolipoma of kidney High cholesterol HTN (hypertension) GI bleed Kidney stone Diverticulitis Surgical History Surgical History Hx of tonsillectomy Hx of colectomy Hx of appendectomy Social History Social History Patient Tobacco Use Status: Never used Tobacco Advance Directives: Yes Advance Directives on File: Yes Advance Directives Date on File: 07/09/21 Do you have a plan to hurt others: No Plan Meds Allergies Allergy/AdvReac Type Severity Reaction Status Date / Time abacavir Allergy Unknown Unknown Verified 04/11/25 07:43 dicloxacillin (Dicloxacillin) Allergy Unknown UNKNOWN Verified 04/11/25 07:43 Sulfa (Sulfonamide Allergy Unknown RASH Verified 04/11/25 07:43 Antibiotics) Active Medications: Current Medications Acetaminophen (Acetaminophen 325 Mg Tablet) 650 mg PO Q6H PRN PRN Reason: Pain, Mild 1-3,fever,headache Aspirin (Aspirin Enteric Coated 81 Mg Tablet.) 81 mg PO DAILY [facility] Atorvastatin Calcium (Atorvastatin Calcium 10 Mg Tablet) 10 mg PO DAILY [facility] Benzonatate (Benzonatate 100 Mg Capsule) 100 mg PO TID PRN PRN Reason: Cough Calcium Carbonate (Calcium Oyster Shell Elemental 500 Mg Tablet) 500 mg PO DAILY [facility] Fluticasone Propionate (Fluticasone Propionate Nasal 16 Gm [place]) 1 spray NOSTRIL-B BID PRN PRN Reason: Allergy Symptoms Lorazepam (Lorazepam 0.5 Mg Tablet) 0.5 mg PO DAILY [facility] Magnesium Hydroxide (Milk Of Magnesia 30 Ml Oral.Susp) 30 ml PO DAILY PRN PRN Reason: Constipation Melatonin (Melatonin 3 Mg Tablet) 6 mg PO BEDTIME PRN PRN Reason: Insomnia Nortriptyline HCl (Nortriptyline Hcl 25 Mg Capsule) 25 mg PO BEDTIME [facility] Omeprazole (Omeprazole 20 Mg Capsule.Dr) 20 mg PO DAILY@06 [facility] Last Admin: 04/11/25 09:39 Dose: 20 mg Ondansetron HCl (Ondansetron Hcl 4 Mg/2 Ml Vial) 4 mg IVPUSH Q8H PRN PRN Reason: Nausea and Vomiting Polyethylene Glycol (Polyethylene Glycol 3350 17 Gm Powd.Pack) 17 gm PO DAILY PRN PRN Reason: Constipation Pyridoxine HCl (Pyridoxine Hcl (Vitamin B6) 50 Mg Tablet) 50 mg PO DAILY [facility] Home Medications ?Medication ?Instructions ?Recorded ?Confirmed ?Last Taken ?Type fluticasone propionate 50 1 spray intranasal BID PRN Allergy 07/14/20 04/11/25 07/13/20 History mcg/actuation nasal Symptoms spray,suspension lorazepam 0.5 mg tablet 1 tab PO DAILY 07/14/20 04/11/25 04/10/25 History losartan 50 mg tablet 1 tab PO DAILY 07/14/20 04/11/25 04/10/25 History metoprolol succinate 50 mg 75 mg PO DAILY 07/14/20 04/11/25 04/10/25 History tablet,extended release 24 hr nortriptyline 25 mg capsule 1 cap PO BEDTIME 07/14/20 04/11/25 04/10/25 History omega 4-xgs-kzt-fish oil 1,000 mg 1 cap PO DAILY 07/14/20 04/11/25 04/10/25 History (120 mg-180 mg) capsule (Fish Oil) omeprazole 20 mg capsule,delayed 20 mg PO DAILY@0630 07/14/20 04/11/25 04/10/25 History release simvastatin 20 mg tablet 1 tab PO BEDTIME 07/14/20 04/11/25 04/10/25 History amlodipine 10 mg tablet 10 mg PO DAILY 02/14/23 04/11/25 04/10/25 History multivitamin 1 tab PO DAILY 02/14/23 04/11/25 04/10/25 History calcium carbonate 500 mg PO DAILY 04/11/25 04/11/25 04/10/25 History clobetasol 0.05 % topical cream 1 appl topical BID PRN Psoriasis 04/11/25 04/11/25 Unknown History on Right leg until resolved Physical Exam Vital Signs: Vital Signs: Last Vital Signs Temp 98.0 F 04/11/25 08:51 Pulse 104 H 04/11/25 08:51 Resp 18 04/11/25 08:51 BP 153/67 H 04/11/25 08:51 Pulse Ox 95 04/11/25 08:51 O2 Del Method Room Air 04/11/25 08:51 BMI result Body Mass Index 32.0 Neuro: Other: Mental Status: She is alert and awake with normal spontaneity of speech fluency comprehension and affect. She has answering questions appropriately. Cranial Nerves: CN II: Visual mac full to confrontation, visual acuity intact. CN III, IV, : Pupils equal, round, reactive to light and accommodation. Extraocular movements are normal. CN V: Facial sensation is normal. CN VII: Facial movements symmetrical. CN VIII: Hearing intact to bedside conversation is normal. CN IX, X: Palate elevates symmetrically. CN XI: Shoulder shrug and head turn symmetrical. CN XII: Tongue midline without atrophy or fasciculations. Motor: No obvious focal arm or leg weakness. No pronator drift. Reflexes: Deep tendon reflexes are trace to absent with flexor plantars. Coordination: [id number] is okay. Extrapyramidal: Full facial expressions and blinking. No rigidity. Movements are appropriate with no tremor or abnormality. Speech: Normal; no dysarthria or tremor. Results Labs 04/11/25 07:15 04/11/25 07:15 Labs: Short CBC 04/11/25 Range/Units 07:15 WBC 6.0 (4.8-10.8) X10*3/uL Hgb 14.8 (12.0-16.0) g/dl Hct 43.5 (37.0-47.0) % Plt Count 226 (160-400) X10*3/uL BMP 04/11/25 07:15 Sodium 141 Potassium 3.7 Chloride 108 Carbon Dioxide 24 BUN 21 H Creatinine 0.74 Calcium 9.3 Urine 04/11/25 Range/Units 10:03 Urine Color Yellow Urine Appearance Clear Urine pH 7.0 (5.0-9.0) Ur Specific [place] 1.025 (1.005-1.025) Urine Protein Negative (Neg-Trace) mg/dL Urine Glucose (UA) Negative (Negative) mg/dL [address] [address] [address] Scan Report Signed Patient: Lidia Mcdonald CLINICAL HISTORY: Stroke Protocol --- Additional Notes or Special Instructions: L sided deficits CT angiography head and neck with contrast. 3D Postprocessing. Comparison: None provided Findings: Aortic arch and cervical great vessels are patent with no aneurysm, dissection, hemodynamically significant stenoses, or occlusion. Intracranial arteries are patent. No aneurysm, dissection, hemodynamically significant stenoses, or occlusion. No abnormal intracranial enhancement. The visualized thyroid gland is unremarkable. No cervical mass or fluid collection. Lung apices clear. No acute fracture. Patent head and neck CTA. CT head without contrast Comparison: None provided Findings: No intra-axial mass, midline shift, hydrocephalus, or acute hemorrhage. There is moderate diffuse atrophy.. The visualized paranasal sinuses and mastoid air cells are normal. The orbits are within normal limits. No skull fracture. IMPRESSION: 1. No acute intracranial findings. Assessment and Plan (1) Numbness and tingling: Status: Acute 74 years old woman with new onset of left arm and hand numbness, tingling, weakness that started after waking up this morning. Her examination did not reveal any focal findings in her NIH stroke scale was 0-1. Initial head CTA did not reveal any acute lesion or vascular stenosis. I did noticed that she has significant or at least moderate diffuse cortical atrophy. My recommendation is to obtain a noncontrast MRI of brain as she might have a small ischemic stroke. In the meantime anti-platelet agent such as baby aspirin daily is recommended Procedures Date of Service Date of Service: 04/11/25
[2025-04-11] MEDS: Metoprolol Succinate ER 25 MG TAB.ER.24H 75 MG PO (13:43)
--- NOTE | 2025-04-11 15:27 | HO.NURTONUR ---
Patient is a 74 year old full code who presented to the ED via EMS from home with left hand weakness and numbness. Patient woke up this morning at 0615 when she noticed her left hand being numb when she could not picker feeder her cup. LKast known well was last night at 2330 before bed. CTH (-). Brain MRi is pending. Patient is aox4, arousable and still complaining of left fingertip numbness. Noted to have mild speech slurring on exam. Patient up to commode 1 assist. UA (+) ordered dose of IV antibiotics. Patient on monitor with 20g in right AC and IV in left hand.
[2025-04-11 16:39] LABS: Prothrombin Time Whole Bld POC 11.3 sec (11.1-13.5); ~PT, ~INR - Anti Coag Clinic 0.9 (0.9-1.1)
[2025-04-12] VITALS (7 sets, daily range): BP systolic 126–162; BP diastolic 57–86; PULSE 80–86; RESP 16–24; TEMP 36.2–37.6; O2SAT 92–95
[2025-04-12] MEDS: Aspirin Enteric Coated 81 MG TABLET.DR PO (08:20)
[2025-04-12] MEDS: Metoprolol Succinate ER 25 MG TAB.ER.24H 75 MG PO (08:20)
[2025-04-12] MEDS: Calcium Oyster Shell Elemental 500 MG TABLET PO (08:21)
--- NOTE | 2025-04-12 10:56 | MHC.CM.PN ---
IMM 04/12/25, Pt. lives with her , she does not use home health services or DME, HCP is on file and confirmed: Branden, PCP confirmed: Karen Almaraz MD. PT and OT rec. Acute rehab, CM discussed this with pt. and she is willing to go, referrals out. CM to continue to follow for DC needs.
--- NOTE | 2025-04-12 16:00 | CA_ITS ---
Transthoracic Echocardiogram Patient (Last, First, Middle): Lidia Mcdonald, Gender: Female Date of : 1950 Age: 74 Procedure Date: 04/12/2025 Procedure Type: Transthoracic Echocardiogram Location: [facility] [place] Height: 157.48 cm Weight: 78.93 kg BSA: 1.80 m2 Heart Rate: 83 bpm BP: 130 / 69 mmHg Social Work Supervisor: SAM Referring MD: Wilda Meredith MD Symptoms: cva ,? embolic source Study Quality: Adequate ECG Rhythm: Sinus Conclusions: - The left ventricular systolic function is hyperdynamic. The calculated ejection fraction is 71% by biplane method. - No obvious valvular pathology seen on this study. Findings Left Ventricle Normal left ventricular cavity size. There is normal left ventricular wall thickness. The left ventricular systolic function is hyperdynamic. The calculated ejection fraction is 71% by biplane method. There is no evidence of regional wall motion abnormalities. Evidence suggests grade I (mild) diastolic dysfunction. Right Ventricle Normal right ventricular cavity size and systolic function. Atria Both atria are normal in size. Aortic Valve There is a normal trileaflet aortic valve. There is mild calcification of the aortic valve. There is no aortic valve stenosis. There is no aortic valve regurgitation. Mitral Valve The mitral valve appears normal. There is no mitral valve regurgitation. There is no mitral valve stenosis. Pulmonic Valve The pulmonic valve is likely normal. Tricuspid Valve There is no tricuspid valve regurgitation. Tricuspid regurgitation envelope is inadequate for calculation of right ventricular systolic pressure. Great Vessels The asc aorta and aortic arch are normal in size. Venous The inferior vena cava is normal in size and collapses greater than 50% with inspiration. Pericardium/Pleural There is no evidence of pericardial effusion. Prior Study Comparison No prior study available for comparison. Recommendations, Care & Conclusions No obvious valvular pathology seen on this study. Measurements 2D Linear Measurements IVSd: 0.88 0.6-0.9/0.6-1.0 cm LVIDd: 2.97 3.9-5.3/4.2-5.9 cm LVIDd Index: 1.65 2.4-3.2/2.2-3.1 cm/m2 LVIDs: 2.06 2.0-3.6 cm LVPWd: 0.97 0.7-1.1 cm LA Diam: 3.20 2.7-3.8/3.0-4.0 cm LAIDs Index: 1.78 1.5-2.3 cm/m2 LV Mass: 89.72 67-162/88-224 g LV Mass Index: 49.85 43-95/49-115 g/m2 LVOT Diam: 1.70 3.0+(-)1.3 cm 2D Systolic Function EF 4C: 65.70 >55% EF 2C: 75.50 >55% EF BiP: 70.60 >55% Mitral Valve MV Pk E: 0.59 MV PK A: 1.25 MV Decel Time: 229.00 E/A: 0.50 E'Lateral: 7.07 E'Medial: 5.33 E/E' Med: 11.00 E/E' Lat: 8.30 PHT: 67.00 MVA PHT: 3.28 Decel [place]: 2.55 Aortic Valve AoV Pk Pedro: 1.41 AoV Mn Pedro: 1.05 AoV VTI: 0.28 AoV Pk Grad: 8.00 Aov Mn Grad: 5.00 CESAR Cont.VTI: 2.28 LVOT LVOT Pk Pedro: 1.45 LVOT Mn Pedro: 0.97 LVOT VTI: 0.28 LVOT Pk Grad: 8.00 LVOT Mn Grad: 4.00 LVOT Diam: 1.70 LVOT Area: 2.27 Diastolic Function MV Pk E: 0.59 MV Pk A: 1.25 E/A: 0.50 E'Medial: 5.33 E/E' Med: 11.00 E' Laterial: 7.07 E/E' Lat: 8.30 Right Ventricle TAPSE (mm): 21.20 TVS' Pedro: 12.60 Tricuspid Valve RA Press: 3.00 Great Vessels Aorta Sinus of Valsalva: 3.10 2.0-3.5 cm Ao Asc: 3.80 2.1-3.4 cm Ao Arch: 3.40 Pulmonary Veins Pulm Vein S/D 1.00 Pulmonary Valve PV Pk Pedro: 1.26 Peak PV Grad: 6.00 Updated in Other Vendor System with Status of Final Deep Mcneal MD electronically signed on 04/13/2025 3:53:51 PM with status of Final
--- NOTE | 2025-04-12 16:37 | P.PNIM_ITS ---
Subjective Subjective Date of Service: 04/12/25 Interval History: acute cva Review of Systems Left-hand weakness somewhat improving, denies any chest pain or shortness of breath Physical Exam 2 Exam: Exam: Appearance: Alert.? Oriented X3.? cvs: rrr, [id number] , no murmur res: clear to auscultation ,no rhonchii or wheezing abd: no rebound or guarding ,nt, bs present. ext pulses present , no cyanosis . neuro: axo3 , left partida weakness improving Vital Signs: Vital Signs: Last Vital Signs Temp 97.2 F 04/12/25 16:00 Pulse 83 04/12/25 16:00 Resp 18 04/12/25 16:00 BP 126/57 L 04/12/25 16:00 Pulse Ox 95 04/12/25 16:00 O2 Del Method Room Air 04/12/25 16:00 BMI result Body Mass Index 32.0 Objective Data Active Medications Acetaminophen (Acetaminophen 325 Mg Tablet) 650 mg PO Q6H PRN PRN Reason: Pain, Mild 1-3,fever,headache Aspirin (Aspirin Enteric Coated 81 Mg Tablet.Dr) 81 mg PO DAILY [facility] Last Admin: 04/12/25 08:20 Dose: 81 mg Documented By: YISEL Atorvastatin Calcium (Atorvastatin Calcium 10 Mg Tablet) 10 mg PO DAILY [facility] Last Admin: 04/12/25 08:20 Dose: 10 mg Documented By: YISEL Benzonatate (Benzonatate 100 Mg Capsule) 100 mg PO TID PRN PRN Reason: Cough Calcium Carbonate (Calcium Oyster Shell Elemental 500 Mg Tablet) 500 mg PO DAILY [facility] Last Admin: 04/12/25 08:21 Dose: 500 mg Documented By: YISEL Enoxaparin Sodium (Enoxaparin Sodium 40 Mg/0.4 Ml Syringe) 40 mg SUBCUT Q24H [facility] Last Admin: 04/12/25 13:01 Dose: 40 mg Documented By: YISLE Fluticasone Propionate (Fluticasone Propionate Nasal 16 Gm [place]) 1 spray NOSTRIL-B BID PRN PRN Reason: Allergy Symptoms Ceftriaxone Sodium 1 gm/ (Sodium Chloride) 50 mls @ 100 mls/hr IV Q24H [facility] Last Infusion: 04/12/25 13:34 Dose: Infused Documented By: YISEL Lorazepam (Lorazepam 0.5 Mg Tablet) 0.5 mg PO DAILY [facility] Last Admin: 04/12/25 08:20 Dose: 0.5 mg Documented By: YISEL Magnesium Hydroxide (Milk Of Magnesia 30 Ml Oral.Susp) 30 ml PO DAILY PRN PRN Reason: Constipation Melatonin (Melatonin 3 Mg Tablet) 6 mg PO BEDTIME PRN PRN Reason: Insomnia Metoprolol Succinate (Metoprolol Succinate Er 25 Mg Tab.Er.24h) 75 mg PO DAILY [facility]; Protocol Last Admin: 04/12/25 08:20 Dose: 75 mg Documented By: YISEL Nortriptyline HCl (Nortriptyline Hcl 25 Mg Capsule) 25 mg PO BEDTIME [facility] Last Admin: 04/11/25 20:12 Dose: 25 mg Documented By: HECTOR Omeprazole (Omeprazole 20 Mg Capsule.Dr) 20 mg PO DAILY@0630 [facility] Last Admin: 04/12/25 08:21 Dose: 20 mg Documented By: YISEL Ondansetron HCl (Ondansetron Hcl 4 Mg/2 Ml Vial) 4 mg IVPUSH Q8H PRN PRN Reason: Nausea and Vomiting Polyethylene Glycol (Polyethylene Glycol 3350 17 Gm Powd.Pack) 17 gm PO DAILY PRN PRN Reason: Constipation Pyridoxine HCl (Pyridoxine Hcl (Vitamin B6) 50 Mg Tablet) 50 mg PO DAILY [facility] Last Admin: 04/12/25 08:20 Dose: 50 mg Documented By: YISEL Labs 04/11/25 07:15 04/11/25 07:15 Labs: Laboratory Results - last 24 hr 04/11/25 07:14 Whole Blood PT 11.3 Whole Blood INR 0.9 Microbiology Microbiology Results: Microbiology 04/11/25 Unknown Urine Culture - Preliminary Urine clean catch - Clean Catch Midstream Gram negative arianna Assessment and Plan (1) Left arm weakness: Status: Acute Plan 74-year-old female with multiple risk factors of stroke including age, hypertension, hyperlipidemia presented with headache, left upper extremity paresthesias, initially noted to have slurred speech and left facial droop will be admitted for continued neurological monitoring. Left upper extremity paresthesias. Likely related to TIA/acute CVA CT head/CTA negative for acute stroke Persistent symptoms of paresthesias, slurred speech and headache resolved Continue neuro checks MRi-right frontal posterior area stroke Aspirin 81 mg daily/Lipitor/avoid low blood pressure. Discussed with the Neurology-? Question embolic, added echo and cardiology evaluation UA positive Patient asymptomatic placed on IV ceftriaxone follow urine [id number] rods. History of hypertension on multiple antihypertensives including losartan 50 mg, Norvasc 10 mg and metoprolol 75 mg follow BP closely and avoid hypotension History of hyperlipidemia LDL 66, total cholesterol 138 Place on Lipitor 10 mg at bedtime History of GERD continue Prilosec DVT prophylaxis with Lovenox Full code Ongoing need of stay: inpatient hospitalization due to persistent neurological deficit requiring neurologic consultation, close neuro monitoring and further testing as per Neurology. Quality Stroke Does the patient have a stroke diagnosis?: No VTE Prior VTE?: No VTE Risk Level:: Medical - moderate - high VTE Device Contraindication: Treatment Not Indicated VTE Drug Contraindication: N/A - Med Ordered
[2025-04-13 03:12] VITALS: BP 149/70; PULSE 84; RESP 18; TEMP 36.6; O2SAT 96
[2025-04-13 07:51] VITALS: BP 164/73; PULSE 88; RESP 18; TEMP 36.1; O2SAT 96
[2025-04-13] MEDS: Metoprolol Succinate ER 25 MG TAB.ER.24H 75 MG PO (08:50)
[2025-04-13] MEDS: Aspirin Enteric Coated 81 MG TABLET.DR PO (08:50)
[2025-04-13] MEDS: Calcium Oyster Shell Elemental 500 MG TABLET PO (08:51)
--- NOTE | 2025-04-13 09:47 | PM.CNCAR ---
History of Present Illness History of Present Illness Date of Service: 04/13/25 Chief complaint: L Sided Weakness and Numbness Narrative: This is a cardiology consultation regarding evaluation for cardioembolic source of stroke. Patient herself does not have any known cardiac issues. She denies any coronary disease or myocardial infarction or cardiomyopathy or any other cardiac concerns. Per documentation, has hypertension, hyperlipidemia, upper GI bleed/gastritis and she presented for left upper extremity numbness and weakness. In this context, she has undergone brain imaging and the MRI shows small acute infarct in the right posterior frontal lobe. We have been asked to assess any cardiac etiology for this. She has no complaints like angina or shortness of breath or anything cardiac nature in the past. Review of Systems Review of Systems: Yes all other systems are reviewed and are negative Constitutional: Constitutional: Reports as per HPI and Reports no additional constitutional complaints Eyes: Eyes: Reports as per HPI and Denies no additional eye complaints ENT: Denies system reviewed and no additional complaints, except as documented and Reports as per HPI Cardiovascular: Cardiovascular: Reports as per HPI, Reports no additional cardiovascular complaints, Denies acrocyanosis, Denies cool extremities, Denies chest pain, Denies leg edema, Denies lightheadedness, Denies palpitations and Denies dyspnea Respiratory: Respiratory: Reports as per HPI, Denies no additional respiratory complaints and Denies dyspnea Gastrointestinal: Gastrointestinal: Reports as per HPI and Denies no additional gastrointestinal complaints Genitourinary: Genitourinary: Reports as per HPI Musculoskeletal: Musculoskeletal: Reports no additional musculoskeletal complaints and Reports as per HPI Integumentary/Breasts: Skin/Breast: Reports system reviewed and no additional complaints, except as docu Neurologic: Reports system reviewed and no additional complaints, except as documented and Reports as per HPI Psychiatric: Psychiatric: Reports no additional psychiatric complaints and Reports as per HPI Endocrine: Endocrine: Reports no additional endocrine complaints, Reports as per HPI and Denies palpitations Hematologic/Lymphatic: Hematologic/Lymphatic: Reports no additional hematologic/lymphatic complaints and Reports as per HPI Allergic/Immunologic: Allergic/Immunologic: Reports no additional allergic/immunologic complaints and Reports as per HPI [facility] Past Medical History Medical History Migraine Breast cyst Angiomyolipoma of kidney High cholesterol HTN (hypertension) GI bleed Kidney stone Diverticulitis Family History Pertinent family history: No pertinent family history Surgical History Surgical History Hx of tonsillectomy Hx of colectomy Hx of appendectomy Social History Social History Household Members: Spouse Housing: House Housing Other:: 2 floors Do you presently have visiting nurse or other home services: No Patient Tobacco Use Status: Never used Tobacco Advance Directives Date on File: 07/09/21 service: Yes Meds Allergies Allergy/AdvReac Type Severity Reaction Status Date / Time abacavir Allergy Unknown Unknown Verified 04/11/25 07:43 dicloxacillin (Dicloxacillin) Allergy Unknown UNKNOWN Verified 04/11/25 07:43 Sulfa (Sulfonamide Allergy Unknown RASH Verified 04/11/25 07:43 Antibiotics) Active Medications: Current Medications Acetaminophen (Acetaminophen 325 Mg Tablet) 650 mg PO Q6H PRN PRN Reason: Pain, Mild 1-3,fever,headache Aspirin (Aspirin Enteric Coated 81 Mg Tablet.Dr) 81 mg PO DAILY [facility] Last Admin: 04/13/25 08:50 Dose: 81 mg Atorvastatin Calcium (Atorvastatin Calcium 10 Mg Tablet) 10 mg PO DAILY [facility] Last Admin: 04/13/25 08:51 Dose: 10 mg Benzonatate (Benzonatate 100 Mg Capsule) 100 mg PO TID PRN PRN Reason: Cough Calcium Carbonate (Calcium Oyster Shell Elemental 500 Mg Tablet) 500 mg PO DAILY [facility] Last Admin: 04/13/25 08:51 Dose: 500 mg Enoxaparin Sodium (Enoxaparin Sodium 40 Mg/0.4 Ml Syringe) 40 mg SUBCUT Q24H [facility] Last Admin: 04/12/25 13:01 Dose: 40 mg Fluticasone Propionate (Fluticasone Propionate Nasal 16 Gm Sloan) 1 spray NOSTRIL-B BID PRN PRN Reason: Allergy Symptoms Last Admin: 04/12/25 20:08 Dose: 1 spray Ceftriaxone Sodium 1 gm/ (Sodium Chloride) 50 mls @ 100 mls/hr IV Q24H [facility] Last Infusion: 04/12/25 13:34 Dose: Infused Lorazepam (Lorazepam 0.5 Mg Tablet) 0.5 mg PO DAILY [facility] Last Admin: 04/13/25 08:50 Dose: 0.5 mg Magnesium Hydroxide (Milk Of Magnesia 30 Ml Oral.Susp) 30 ml PO DAILY PRN PRN Reason: Constipation Melatonin (Melatonin 3 Mg Tablet) 6 mg PO BEDTIME PRN PRN Reason: Insomnia Metoprolol Succinate (Metoprolol Succinate Er 25 Mg Tab.Er.24h) 75 mg PO DAILY [facility]; Protocol Last Admin: 04/13/25 08:50 Dose: 75 mg Nortriptyline HCl (Nortriptyline Hcl 25 Mg Capsule) 25 mg PO BEDTIME [facility] Last Admin: 04/12/25 20:08 Dose: 25 mg Omeprazole (Omeprazole 20 Mg Capsule.Dr) 20 mg PO DAILY@06 [facility] Last Admin: 04/13/25 05:06 Dose: 20 mg Ondansetron HCl (Ondansetron Hcl 4 Mg/2 Ml Vial) 4 mg IVPUSH Q8H PRN PRN Reason: Nausea and Vomiting Polyethylene Glycol (Polyethylene Glycol 3350 17 Gm Powd.Pack) 17 gm PO DAILY PRN PRN Reason: Constipation Pyridoxine HCl (Pyridoxine Hcl (Vitamin B6) 50 Mg Tablet) 50 mg PO DAILY [facility] Last Admin: 04/13/25 08:51 Dose: 50 mg Home Medications ?Medication ?Instructions ?Recorded ?Confirmed ?Last Taken ?Type fluticasone propionate 50 1 spray intranasal BID PRN Allergy 07/14/20 04/11/25 07/13/20 History mcg/actuation nasal Symptoms spray,suspension lorazepam 0.5 mg tablet 1 tab PO DAILY 07/14/20 04/11/25 04/10/25 History losartan 50 mg tablet 1 tab PO DAILY 07/14/20 04/11/25 04/10/25 History metoprolol succinate 50 mg 75 mg PO DAILY 07/14/20 04/11/25 04/10/25 History tablet,extended release 24 hr nortriptyline 25 mg capsule 1 cap PO BEDTIME 07/14/20 04/11/25 04/10/25 History omega 7-pks-twq-fish oil 1,000 mg 1 cap PO DAILY 07/14/20 04/11/25 04/10/25 History (120 mg-180 mg) capsule (Fish Oil) omeprazole 20 mg capsule,delayed 20 mg PO DAILY@0630 07/14/20 04/11/25 04/10/25 History release simvastatin 20 mg tablet 1 tab PO BEDTIME 07/14/20 04/11/25 04/10/25 History amlodipine 10 mg tablet 10 mg PO DAILY 02/14/23 04/11/25 04/10/25 History multivitamin 1 tab PO DAILY 02/14/23 04/11/25 04/10/25 History calcium carbonate 500 mg PO DAILY 04/11/25 04/11/25 04/10/25 History clobetasol 0.05 % topical cream 1 appl topical BID PRN Psoriasis 04/11/25 04/11/25 Unknown History on Right leg until resolved Physical Exam Vital Signs: Vital Signs: Last Vital Signs Temp 96.9 F 04/13/25 07:51 Pulse 88 04/13/25 07:51 Resp 18 04/13/25 07:51 BP 164/73 H 04/13/25 07:51 Pulse Ox 96 04/13/25 07:51 O2 Del Method Room Air 04/13/25 07:51 BMI result Body Mass Index 32.0 Const: General: comfortable and no acute distress Orientation/consciousness: patient oriented x3 HEENT: Other: Unremarkable Head: Yes normal to inspection Neck: Neck: Yes normal visual inspection Chest: Chest palpation & inspection: normal inspection of the chest Resp: Auscultation: clear to auscultation bilaterally Cardio: Palpation: normal PMI Heart sounds: S1 normal heart sound present, S2 normal heart sound present, no gallops, Murmur heart sound present systolic II/ and no rubs GI: Palpation (GI): Soft to palpation Back/Spine/Pelvis: Other: unremarkable Skin: General skin exam: no rashes or lesions noted Neuro: General: patient oriented x3 Extrem: General: Yes normal to inspection Psych: Mental Status: mental status grossly normal Objective Labs and Meds 04/11/25 07:15 04/11/25 07:15 ECG Interpretation: EKGs shows sinus tachycardia at 101/Min; voltage criteria for LVH; cannot exclude old lateral infarct but could be related to lead placement and body habitus. Assessment and Plan (1) Stroke: Status: Acute Plan CTA head and neck without any significant arterial disease. MRI reveals small acute infarct in the right posterior frontal lobe. No documented atrial fibrillation in the past or in this admission. We will review the echocardiogram for any cardiac abnormalities. Consider outpatient 30 day monitor versus implantable loop recorder. Otherwise, antiplatelet drugs, blood pressure medication, statins. We will arrange follow-up. Procedures Date of Service Date of Service: 04/13/25
[2025-04-13 12:00] VITALS: BP 164/85; PULSE 89; RESP 18; TEMP 36.6; O2SAT 95
--- NOTE | 2025-04-13 12:47 | PM.DS ---
DS: Providers Provider Date of admission: 04/11/25 08:34 Date of discharge: 04/13/25 Primary care physician: Karen Almaraz MD Consults: 04/11/25 09:22 Consult to Neurology Routine Consulting Provider: Morales Archuleta Reason for consultation: acute left arm paresthesias/left facial droop Has provider been notified: No 04/12/25 13:46 Consult to Cardiology Routine Consulting Provider: [facility] Reason for consultation: cva-neuro rec cardio embolic infract Has provider been notified: No DS: Diagnosis Discharge Diagnosis (1) Stroke: Status: Acute DS: Summary Hospital Course Hospital Course: from initial hpi: 74-year-old female with past medical history of hypertension, hyperlipidemia, history of kidney stones, history of upper GI bleed and erosive gastritis presented with left upper extremity numbness and weakness. Patient went to bed at 23:30 last night and woke up this morning at 06:15. When she woke up she she did not feel 100% at her baseline, her left hand felt tingly and she was unable to hold the cup. She had a left-sided headache. She called 911, they noted mild left facial droop, speech slightly slurred and left arm drift on examination. CT brain and CTA head and neck showed no acute abnormality, patient treated in ED with aspirin her headache resolved she continued to have left arm numbness and tingling unable to hold a cup due to lack of sensations. Her headache has resolved. Patient denies prior history of TIA or stroke, denies history of smoking or illicit drug use. Patient is compliant with antihypertensives and Zocor. hospital course: Patient was admitted for acute CVA of right frontal posterior. Was seen by Neurology who recommended antiplatelet and statin. Echocardiogram was done and results should be followed up. She was seen by Cardiology recommended outpatient follow up for event monitor to rule out arrhythmia. She had no evidence of atrial arrhythmia while on monitor while inpatient. She was seen by physical therapy and occupational therapy recommended acute rehab to which she will be discharged. Also noted to have urinary tract infection, was treated ceftriaxone, urine culture grew E coli and group C strep. On discharge she will continue 5 more days of Ceftin. For hypertension she will continue metoprolol, amlodipine, losartan. For mood disorder was continued on nortriptyline. Time Attestation Discharge Coordination Time (in mins): 32 Quality: Safe Use of Opioids Does Pt have an Active Cancer Diagnosis on the Problem List?: No Quality: Stroke Does the patient have a stroke diagnosis?: Yes Reason for No Anti-thrombotic at DC: N/A - Med Ordered Reason for No Anticoagulant at DC: Drug treatment not indicated Reason Not Initiating IV-Tpa: Drug treatment not indicated Reason for No Anti-thrombotic by Day Two: N/A - Med Ordered Reason for No Statin at DC: N/A - Med Ordered Physical Exam Vital Signs: Vital Signs: Last Vital Signs Temp 97.8 F 04/13/25 12:00 Pulse 89 04/13/25 12:00 Resp 18 04/13/25 12:00 BP 164/85 H 04/13/25 12:00 Pulse Ox 95 04/13/25 12:00 O2 Del Method Room Air 04/13/25 12:00 BMI result Body Mass Index 32.0 Const: General: comfortable and no acute distress Orientation/consciousness: patient oriented x3 HEENT: Other: Unremarkable Head: Yes normal to inspection Neck: Neck: Yes normal visual inspection Chest: Chest palpation & inspection: normal inspection of the chest Resp: Auscultation: clear to auscultation bilaterally Cardio: Palpation: normal PMI Heart sounds: S1 normal heart sound present, S2 normal heart sound present, no gallops, Murmur heart sound present systolic II/ and no rubs GI: Palpation (GI): Soft to palpation Back/Spine/Pelvis: Other: unremarkable Skin: General skin exam: no rashes or lesions noted Neuro: General: patient oriented x3 Extrem: General: Yes normal to inspection Psych: Mental Status: mental status grossly normal Discharge Plan Discharge Anticipated Discharge Date/Time: 04/13/25 12:42 Patient Disposition: Xfer Inpatient Rehab Fac Discharge Diagnosis: Stroke, urinary tract infection Referrals: Karen Almaraz MD [Primary Care Provider, Medical] - 1 Week Discharge Medications: New aspirin 81 mg Tablet,Delayed Release (Dr/Ec) 81 mg PO DAILY Qty: 0 0RF cefuroxime axetil 500 mg tablet 500 mg PO BID Qty: 10 0RF atorvastatin [Lipitor] 40 mg tablet 40 mg PO BEDTIME Qty: 90 0RF Continued pyridoxine (vitamin B6) 100 mg tablet 50 mg PO DAILY 90 Days Qty: 45 3RF losartan 50 mg tablet 1 tab PO DAILY metoprolol succinate 50 mg tablet extended release 24 hr 75 mg PO DAILY nortriptyline 25 mg capsule 1 cap PO BEDTIME lorazepam 0.5 mg tablet 1 tab PO DAILY simvastatin 20 mg tablet 1 tab PO BEDTIME omeprazole 20 mg capsule,delayed release(DR/EC) 20 mg PO DAILY@0630 fluticasone propionate 50 mcg/actuation spray,suspension 1 spray intranasal BID PRN (Reason: Allergy Symptoms) omega 7-kpx-vfy-fish oil [Fish Oil] 1,000 mg (120 mg-180 mg) Capsule 1 cap PO DAILY multivitamin Tablet 1 tab PO DAILY amlodipine 10 mg tablet 10 mg PO DAILY clobetasol 0.05 % cream 1 appl topical BID PRN (Reason: Psoriasis on Right leg until resolved ) calcium carbonate 500 mg calcium (1,250 mg) Tablet 500 mg PO DAILY Discharge Orders: Discharge Order (Routine); Ordered 04/13/25 Ordered By: Geovany Dewitt Diet: Advance to usual diet Activity on Discharge: As tolerated Stand Alone Forms: Patient Portal Discharge page Print Language: Urdu Care Plan Goals: prevent strokes Health Concerns: stroke Plan of Treatment: asa, statin, 5 days ceftin to treat uti, acute rehab follow up echo results and cardiology for event monitor Assessment: see above
[2025-04-13 15:49] VITALS: BP 154/72; PULSE 89; RESP 20; TEMP 36.7; O2SAT 95
== END 2025-04-13 16:40 | DRG 65 ==
LOC: HO.ED 08:28 → HO.EDOVER 08:38 → HO.IMC 14:49
PROVIDERS: Admitting Provider Hospitalist; Emergency Provider Emergency Medicine; PCP Family Medicine; Visit Provider Internal Medicine
DX: I63.9 Cerebral infarction, unspecified (principal); N39.0 Urinary tract infection, site not specified; R20.0 Anesthesia of skin; E78.5 Hyperlipidemia, unspecified; R29.703 NIHSS score 3; K21.9 Gastro-esophageal reflux disease without esophagitis; I10 Essential (primary) hypertension; G83.24 Monoplegia of upper limb affecting left nondominant side; B96.20 Unspecified Escherichia coli [E. coli] as the cause of diseases classified elsewhere; B95.4 Other streptococcus as the cause of diseases classified elsewhere; Z79.899 Other long term (current) drug therapy
CPT/HCPCS: 36415; 70450; 70496; 70498; 70551; 80048; 80061; 81001; 82947; 83036; 84484; 85025; 85610; 85730; 87086; 87088; 87147; 87186; 93005; 93306; 97116; 97162; 97166; 97530; 99285; J0696; J1650; Q9967

== ENCOUNTER → 2025-04-11 07:10 | Outpatient (BNV) | payer MEDICARE, OTHER, SELFPAY | PROVIDERS: Admitting Provider Hospitalist; Emergency Provider Emergency Medicine; PCP Family Medicine; Visit Provider Internal Medicine | DX: R00.0 Tachycardia, unspecified (principal) | CPT/HCPCS: 93010 ==

== ENCOUNTER → 2025-04-11 07:10 | Outpatient (BNV) | payer MEDICARE, OTHER, SELFPAY | PROVIDERS: Emergency Provider Emergency Medicine; PCP Family Medicine; Visit Provider Specialist | DX: R20.2 Paresthesia of skin (principal); R51.9 Headache, unspecified | CPT/HCPCS: 70450; 70496; 70498; 70551 ==

== ENCOUNTER 2025-04-11 08:34 | Outpatient (BNV) | payer MEDICARE, OTHER, SELFPAY | END 2025-04-12 16:00 | PROVIDERS: Admitting Provider Hospitalist; Emergency Provider Emergency Medicine; PCP Family Medicine; Visit Provider Internal Medicine | DX: I51.89 Other ill-defined heart diseases (principal) | CPT/HCPCS: 93306 ==

== ENCOUNTER → 2025-04-11 08:34 | Outpatient (BNV) | payer MEDICARE, OTHER, SELFPAY | PROVIDERS: Admitting Provider Hospitalist; Emergency Provider Emergency Medicine; PCP Family Medicine; Visit Provider Hospitalist | DX: R29.898 Other symptoms and signs involving the musculoskeletal system (principal) | CPT/HCPCS: 99232 ==

== ENCOUNTER → 2025-04-11 08:34 | Outpatient (BNV) | payer MEDICARE, OTHER, SELFPAY | PROVIDERS: Admitting Provider Hospitalist; Emergency Provider Emergency Medicine; PCP Family Medicine; Visit Provider Psychiatry & Neurology Neurology | DX: R20.0 Anesthesia of skin (principal); R20.2 Paresthesia of skin | CPT/HCPCS: 99222 ==

== ENCOUNTER → 2025-04-11 08:34 | Outpatient (BNV) | payer MEDICARE, OTHER, SELFPAY | PROVIDERS: Admitting Provider Hospitalist; Emergency Provider Emergency Medicine; PCP Family Medicine; Visit Provider Internal Medicine | DX: I63.9 Cerebral infarction, unspecified (principal) | CPT/HCPCS: 99223 ==